=== PATIENT | female | born 1940 | race Caucasian/White ===

== ENCOUNTER 2021-02-13 23:42 | Inpatient (IN) | payer MEDICAID, SELFPAY ==
[~2021-02-13] VITALS: Ht 162.6 cm; Wt 63.5 kg
[2021-02-13 23:43] VITALS: BP 127/84
--- NOTE | 2021-02-13 23:43 | NUR ---
DYLON ALS FROM HOME FOR C/O SOB x1 DAY BUT HAS BEEN EXPERIENCING SX FOR X3 DAYS BUT FEELS THAT IT WORSENED TODAY. O2 SAT 76% RA. HAS BEEN FEELING WEAK AND FATIGUED. PATIENT ORIGINALLY AAOX0 AND RESPONDS TO VERBAL STIMULI AND PAIN. ON SEEN PATIENT WAS 70% AND PATIENT WAS THEN PLACED ON NON-REBREATHER. MEDHX- HTN, DM NKA
--- NOTE | 2021-02-13 23:43 | NUR ---
PT BROUGHT TO BED 10 VIA [facility]
--- NOTE | 2021-02-13 23:59 | NUR ---
PT PRESENTS WITH LABORED BREATHING, TACHYPNEIC, USING ACCESSORY MUSCLES SATING 75% ON 15 LPM NRB. PLACED PT ON V60 ST MODE IPAP12, EPAP 7, BUR 16, 100% FIO2 CURRENT SATS AT 92%. BS REVEAL COARSE THROUGHOUT. WILL CONTINUE TO MONITOR.
[2021-02-14 00:17] LABS: BASOPHILS # (AUTO) 0.1 K/uL (0.00-0.22); BASOPHILS % (AUTO) 1.1 % (0.0-2.0); EOSINOPHILS % (AUTO) 0.1 % (0.0-4.0); HEMATOCRIT 39.3 % (36-48); HEMOGLOBIN 12.9 g/dL (12.0-16.0); LYMPHOCYTES # (AUTO) 0.6 K/uL (2.5-16.5); LYMPHOCYTES % (AUTO) 5.6 % (20.5-51.1); MEAN CORPUSCULAR HEMOGLOBIN 28 pg (27-31); MEAN CORPUSCULAR HGB CONC 33 g/dL (33-37); MEAN CORPUSCULAR VOLUME 86.3 fL (80-94); MONOCYTES # (AUTO) 0.2 K/uL (0.8-1.0); MONOCYTES % (AUTO) 1.8 % (1.7-9.3); NEUTROPHILS # (AUTO) 10.4 K/uL (1.8-7.7); NEUTROPHILS % (AUTO) 91.4 % (42.2-75.2); PLATELET COUNT (AUTO) 304 K/uL (140-450); RED BLOOD CELL COUNT(AUTO) 4.56 MIL/uL (4.20-5.40); RED CELL DISTRIBUTION WIDTH 13.9 % (11.6-13.7); WHITE BLOOD COUNT (AUTO) 11.4 K/uL (4.8-10.8)
--- NOTE | 2021-02-14 00:43 | NUR ---
patient awake and conversing. patient AAOx4. SAMANTHA Barnett made aware
--- NOTE | 2021-02-14 00:48 | NUR ---
patient vocalized that daughter Lita is the person to contact for information
--- NOTE | 2021-02-14 00:49 | NUR ---
called daughter dulce maria for updates and information.
[2021-02-14] MEDS ORDERED: DOXYCYCLINE 100 MG in DEXTROSE 5% 100 ML IV ONE (01:35)
[2021-02-14] MEDS ORDERED: cefTRIAXone 1,000 MG VIAL ONE ×2 (01:42→20:37)
--- NOTE | 2021-02-14 02:09 | NUR ---
0209 - NEVILLE GRANDDAUGHTER REQUESTING UPDATE [phone]
[2021-02-14 02:19] LABS: ANION GAP 20.4 (8-16); ASPARTATE AMINOTRANSFERASE 42 U/L (15-37); CARBON DIOXIDE 20.1 mmol/L (21-32); CHLORIDE 102 mmol/L (98-107); CREATININE 1.6 mg/dL (0.6-1.3); GLUCOSE 371 mg/dL (74-106); POTASSIUM 4.5 mmol/L (3.5-5.1); SODIUM SERUM 138 mmol/L (136-145); TOTAL BILIRUBIN 0.6 mg/dL (0.0-1.0); UREA NITROGEN, BLOOD 51 mg/dL (7-18)
[2021-02-14 02:20] LABS: ALBUMIN 2.9 g/dL (3.4-5.0); LIPASE 157 U/L (73-393)
[2021-02-14] MEDS ORDERED: DOXYCYCLINE 100 MG VIAL IV ONE (02:26)
[2021-02-14] MEDS ORDERED: NACL 0.9% 1,000 ML IV ONE (02:40)
[2021-02-14 04:43] LABS: APPEARANCE,URINE CLEAR (CLEAR); BILIRUBIN,URINE NEGATIVE (NEGATIVE); BLOOD, URINE TRACE-I (NEGATIVE); COLOR,URINE YELLOW (YELLOW); LEUKOCYTE ESTERASE ,URINE TRACE (NEGATIVE); NITRITE, URINE POSITIVE (NEGATIVE); UGLUCOSE NEGATIVE (NEGATIVE)
[2021-02-14] MEDS ORDERED: METF-350 PO (04:43)
[2021-02-14] MEDS ORDERED: DABI75CA PO (04:43)
[2021-02-14] MEDS ORDERED: NOVN SUBQ (04:43)
[2021-02-14] MEDS ORDERED: METO25TA PO (04:43)
[2021-02-14] MEDS ORDERED: LOSA100T1 PO (04:43)
[2021-02-14] MEDS ORDERED: AMLO2.5T PO (04:43)
[2021-02-14] MEDS ORDERED: [UNRECOGNIZED DRUG - OTHER] (04:43)
[2021-02-14 04:51] LABS: RBC,URINE 0-5 /HPF (0-5)
--- NOTE | 2021-02-14 05:50 | NUR ---
IN THE ROOM WITH MACHINE OVERHAULER PHONE SPEAKING TO PATIENT ABOUT END OF LIFE CARE/CODE STATUS. PATIENT REQUESTING TO GO HOME LEAVING AMA PATIENT DOES NOT WANT TO PASS IN HOSPITAL AND REQUESTING TO SPEAK WITH FAMILY MEMBERS. MACHINE OVERHAULER #[id number] LUCY
--- NOTE | 2021-02-14 05:58 | NUR ---
SAMANTHA SINGH SPEAKING TO FAMILY MEMBER FREDDY ABOUT CODE STATUS OF PATIENT.
--- NOTE | 2021-02-14 06:02 | NUR ---
FAMILY ON THE PHONE SPEAKING TO PATIENT ABOUT DECISION MAKING ON END OF LIFE CARE WHETHER PATIENT WILL BE DNR, FULL CODE, & ETC... FAMILY ON THE WAY TO THE HOSPITAL PATIENT WANTS TO LEAVE AMA BUT WILL HAVE PHYSICIAN SPEAK WITH PATIENT BEFORE LEAVING ABOUT RISKS. SAMANTHA RED AWARE.
--- NOTE | 2021-02-14 07:00 | NUR ---
speaking with Lita daughter about code status of patient, family members will be coming in shortly to speak with physician and patient. expressed confusion/misunderstanding about the whole situation.-- SAMANTHA Talbot made aware and jar filler aware.
--- NOTE | 2021-02-14 07:27 | NUR ---
Pt report given to Jerica PEDRAZA. Transfer of care at this time.
--- NOTE | 2021-02-14 07:28 | NUR ---
RECEIVED REPORT FROM MILO HERNANDEZ. TRANSFER OF CARE AT THIS TIME.
--- NOTE | 2021-02-14 08:06 | NUR ---
PT REPOSITIONED IN BED, AWAKE ALERT X4, VSS, WILL CONTINUE TO MONITOR.
[2021-02-14] MEDS ORDERED: DEXTROSE 50% 50 ML SYR IVP PRN (08:30)
[2021-02-14] MEDS ORDERED: DOCUSATE SODIUM 100 MG GELCAP PO PRN (08:35)
[2021-02-14] MEDS ORDERED: ZOLPIDEM 5 MG TAB PO PRN (08:35)
[2021-02-14] MEDS ORDERED: guaiFENesin DM 200/20 MG-10 ML 10 ML UDC PO PRN (08:35)
[2021-02-14] MEDS ORDERED: POTASSIUM CHLORIDE 10 MEQ TABER PO PRN (08:35)
[2021-02-14] MEDS ORDERED: ACETAMINOPHEN 325 MG TAB PO PRN (08:35)
[2021-02-14] MEDS ORDERED: HYDROcodone/APAP 7.5/325 MG 1 TAB PO PRN (08:35)
--- NOTE | 2021-02-14 08:48 | NUR ---
GAVE REPORT TO MILO CAMARENA FOR PENDING ADMIT. ETA 15MINUTES.
--- NOTE | 2021-02-14 09:03 | NUR ---
Patient will be admitted to care of DR. FIGUEROA. Admited to TELE. Will go to room 124B. Belongings list completed. Report to MILO CAMARENA.
[2021-02-14 09:20] LABS: CHOL/HDL RATIO 2.6 (1-4.5); FREE T4 (FREE THYROXINE) 1.65 ng/dL (0.76-1.46); PHOSPHORUS 3.4 mg/dL (2.5-4.9); THYROID STIMULATING HORMONE 0.45 uIU/mL (0.34-3.74)
[2021-02-14 09:21] VITALS: BP 108/75
--- NOTE | 2021-02-14 09:21 | NUR ---
PT WAS BROUGHT IN BY WOO FROM THE ED, ON BIPAP 100% WITH RT AND ED CHARGE NURSE, TADEO, AT BEDSIDE. PT HAS A RIGHT UPPER ARM AND A LEFT ARM ARM IV, LEFT UPPER ARM RUNNING D5NS@60. PT HAS A ROE IN PLACE. PT SKIN INTACT. PT ON FALL PRECAUTIONS. PT VITALS OBTAINED. PT PLACED ON TELE MONITOR. MRSA SWAB OBTAINED. ALL SAFETY MEASURES IN PLACE, CALL LIGHT WITHIN REACH. WILL CONTINUE TO MONITOR.
[2021-02-14] MEDS: DEXT 5% /NACL 0.9% 1,000 ML IV SCH (09:27)
[2021-02-14] MEDS: LOSARTAN 50 MG TAB PO SCH (09:32)
[2021-02-14] MEDS: PANTOPRAZOLE 40 MG TABEC PO SCH (09:33)
[2021-02-14] MEDS: METOPROLOL 25 MG TAB PO SCH ×2 (09:33→20:45)
[2021-02-14] MEDS: ZINC SULF 220 MG CAP PO SCH (09:33)
[2021-02-14] MEDS: ASCORBIC ACID 500 MG TAB PO SCH (09:33)
[2021-02-14] MEDS: AZITHROMYCIN 250 MG TAB PO SCH (09:33)
[2021-02-14] MEDS: amLODIPine 5 MG TAB PO SCH (09:34)
--- NOTE | 2021-02-14 10:04 | NUR ---
PT WAS TRANSFERRED ON BIPAP FROM ED BED 10 TO 123B. NO DISTRESS NOTED DURING TRANSPORT, WILL CONTINUE TO MONITOR.
--- NOTE | 2021-02-14 10:30 | NUR ---
SPOKE WITH FAMILY FOR HISTORY DUE TO PT INABILITY TO SPEAK WITH COVID MASK ON.
[2021-02-14] MEDS ORDERED: remdesivir COMMUNICATION ORDER 1 EA MISC MC PRN (10:45)
[2021-02-14 11:03] LABS: BILIRUBIN,DIRECT 0.2 mg/dL (0.0-0.3); TOTAL BILIRUBIN 0.5 mg/dL (0.0-1.0)
--- NOTE | 2021-02-14 11:08 | NUR ---
BLOOD GLUCOSE 187, ADMINISTERED INSULIN PER SLIDING SCALE.
[2021-02-14 12:00] VITALS: BP 128/81
[2021-02-14] MEDS: BLOOD GLUCOSE MONITORING 1 DEV DEV FS SCH ×3 (12:08→20:53)
[2021-02-14] MEDS: INSULIN LISPRO SLIDING SCALE 100 UNITS/ML VIAL SUBQ PRN ×3 (12:09→20:52)
[2021-02-14] MEDS ORDERED: COMMUNICATION ORDER MC SCH (13:35)
[2021-02-14] MEDS ORDERED: remdesivir CLINICAL MONITORING 1 EA MISC MC PRN (13:40)
--- NOTE | 2021-02-14 14:03 | NUR ---
SPOKE WITH FAMILY REGARDING CODE STATUS AND FAMILY STATING THE PATIENT AND THEM WANT ALL SAVING MEASURES EXCEPT FOR INTUBATION. PT NODDED IN AGREEMENT.
--- NOTE | 2021-02-14 14:19 | NUR ---
POTENTIAL COVID RELATED SKIN FAILURE DUE TO TISSUE LESS TOLERATE TO PRESSURE, SHEARING AND POSSIBLE ASSOCIATED WITH MICROVASCULAR INJURY AND HYPOXIA CONTINUE TO FOLLOW SKIN CARE AND PRESSURE INJURY PREVENTION INTERVENTIONS. -TURN AND REPOSITION PATIENT Q 2H -ASSESS AND MONITOR SKIN CONDITION DURING POSITION CHANGE -OFFLOAD BILATERAL HEELS BY PLACING PILLOWS UNDER CALVES AT ALL TIMES, UNLESS OTHERWISE CONTRAINDICATED -PRESSURE REDISTRIBUTION SURFACE AND OFFLOADING SACRALCOCCYX -KEEP SKIN CLEAN AND DRY AT ALL TIMES.
--- NOTE | 2021-02-14 14:28 | NUR ---
NOTIFIED PULMO REGARDING RT FEELING LIKE THE PATIENT IS TOO UNSTABLE ON THE HIGH FLOW, TO HOLD OFF UNTIL THE PT IS MORE STABLE. THE MD STATED THAT WAS FINE
[2021-02-14] MEDS ORDERED: BARICITINIB PO SCH (14:30)
--- NOTE | 2021-02-14 14:36 | NUR ---
PATIENT HAS BEEN SCREENED AND CATEGORIZED MODERATE NUTRITION RISK. PATIENT WILL BE SEEN WITHIN 3-5 DAYS OF ADMISSION. 02/14/21 02/18/[address]
[2021-02-14 14:56] LABS: ANION GAP 23.8 (8-16); CARBON DIOXIDE 17.8 mmol/L (21-32); CHLORIDE 101 mmol/L (98-107); CREATININE 1.5 mg/dL (0.6-1.3); GLUCOSE 331 mg/dL (74-106); POTASSIUM 4.6 mmol/L (3.5-5.1); SODIUM SERUM 138 mmol/L (136-145); UREA NITROGEN, BLOOD 53 mg/dL (7-18)
[2021-02-14] MEDS ORDERED: REMDESIVIR. 200 MG in NACL 0.9% 100 ML IV SCH (15:00)
[2021-02-14 16:00] VITALS: BP 125/73
--- NOTE | 2021-02-14 16:01 | NUR ---
NOBLE MEDICATION ADMINISTERED PER MD ORDER. PT TOLERATED ADMINISTRATION AND IV IS PATENT. BLOOD GLUCOSE IS 340, INSULIN ADMINISTERED PER SLIDING SCALE.
--- NOTE | 2021-02-14 18:46 | NUR ---
PT STABLE IN BED WITH NO ACUTE S/S OF DISTRESS. ALL NEEDS WERE MET THROUGHOUT THE SHIFT AND WILL BE ENDORSED TO THE INK MAKER NURSE
[2021-02-14 20:00] VITALS: BP 120/83
--- NOTE | 2021-02-14 20:00 | NUR ---
RECEIVED BEDSIDE REPORT FROM DAY RN FOR CONTINUITY OF CARE. PATIENT A/A/OX3, LAYING IN BED ASLEEP. PT NOT IN ANY DISTRESS AND NO COMPLAIN AT THIS TIME. IVF INFUSING ORDERED. VSS, AFEBRILE , SATING 95% ON BIPAP SETTING. SR ON KETTLE HAND, HR-81. FALL PRECAUTION IMPLEMENTED. INSTRUCTED PT NOT TO GET OUT OF BED WITHOUT ASSISTANCE. PT VERBALIZED UNDERSTANDING. CALL LIGHT WITHIN REACH. BED IN LOW AND LOCKED POSITION. BED ALARM ON. WILL CONTINUE POC.
--- NOTE | 2021-02-14 20:10 | NUR ---
PT PRESENTS LAYING IN BED ASLEEP W/ NO SIGNS OF RESPIRATORY DISTRESS SATING 96% ON V60 ST MODE IPAP12, EPAP 7, RR 16, 100% FIO2. BS REVEAL CLEAR APICES COARSE/DIMINISHED BASES. WILL CONTINUE TO MONITOR.
--- NOTE | 2021-02-14 22:00 | NUR ---
ALL DUE MEDS GIVEN AND PT TOLERATED IT WELL. NO ADVERSE DRUG REACTION NOTED AND NO COMPLAIN FROM THE PATIENT. WILL CONTINUE TO OBSERVE.
[2021-02-15] VITALS: BP 121/76
--- NOTE | 2021-02-15 | NUR ---
PATIENT VITAL SIGNS STABLE, AFEBRILE, SATING 96% ON BIPAP SETTING. NOT IN ANY DISTRESS AND NO COMPLAIN AT THIS TIME. WILL CONTINUE OBSERVATION.
[2021-02-15] MEDS: DEXT 5% /NACL 0.9% 1,000 ML IV SCH ×2 (00:30→17:32)
--- NOTE | 2021-02-15 02:00 | NUR ---
PT ASLEEP AT THIS TIME. VISIBLE CHEST RISE AND FALL NOTED. NOT IN ANY DISTRESS. WILL CONTINUE OBSERVATION.
--- NOTE | 2021-02-15 02:32 | NUR ---
PT PRESENTS LAYING IN BED AWAKE W/ NO SIGNS OF RESPIRATORY DISTRESS SATING 97%. ASSISTED PT WITH REPOSITIONING. V60 PLUGGED INTO RED OUTLET, HOB IS ELEVATED, SKIN INTACT, TOLERATING NIPPV WELL, ,
[2021-02-15 04:00] VITALS: BP 120/68
--- NOTE | 2021-02-15 04:00 | NUR ---
PATIENT VITAL SIGNS STABLE, AFEBRILE, SATING 95% ON BIPAP , FIO2 100%. NOT IN ANY DISTRESS AND NO COMPLAIN AT THIS TIME. CALL LIGHT WITHIN REACH. WILL CONTINUE OBSERVATION.
--- NOTE | 2021-02-15 04:41 | NUR ---
PT PRESENTS LAYING IN BED AWAKE W/ NO SIGNS OF RESPIRATORY DISTRESS SATING 95%. ASSISTED PT WITH DRINKING WATER. V60 PLUGGED INTO RED OUTLET, HOB IS ELEVATED, SKIN INTACT, TOLERATING NIPPV WELL.
[2021-02-15] MEDS: INSULIN LISPRO SLIDING SCALE 100 UNITS/ML VIAL SUBQ PRN ×4 (05:57→20:39)
[2021-02-15] MEDS: BLOOD GLUCOSE MONITORING 1 DEV DEV FS SCH ×4 (05:59→20:48)
--- NOTE | 2021-02-15 06:14 | NUR ---
GOT A CALL FROM RADIOLOGY DEPARTMENT AND WANTED TO SEE IF PATIENT CAN GO TO CT SCAN FOR CHEST CT. STAFF MADE AWARE THAT THE PT IS NOT STABLE TO BE OFF BIPAP AT THIS TIME.
--- NOTE | 2021-02-15 06:16 | NUR ---
NO ACUTE EVENT THROUGHOUT THE NIGHT. PATIENT STABLE AND NOT IN ANY DISTRESS. NO COMPLAIN AT THIS TIME. ALL NEEDS ATTENDED. CALL LIGHT WITHIN REACH.WILL ENDORSE THE PATIENT TO THE ONCOMING RN FOR CONTINUITY OF CARE.
[2021-02-15 06:31] LABS: HEMATOCRIT 35.6 % (36-48); HEMOGLOBIN 11.7 g/dL (12.0-16.0); LYMPHOCYTES # (AUTO) 0.9 K/uL (2.5-16.5); LYMPHOCYTES % (AUTO) 12.9 % (20.5-51.1); MEAN CORPUSCULAR HEMOGLOBIN 29 pg (27-31); MEAN CORPUSCULAR HGB CONC 33 g/dL (33-37); MEAN CORPUSCULAR VOLUME 86.9 fL (80-94); MONOCYTES # (AUTO) 0.6 K/uL (0.8-1.0); MONOCYTES % (AUTO) 8.4 % (1.7-9.3); NEUTROPHILS # (AUTO) 5.4 K/uL (1.8-7.7); NEUTROPHILS % (AUTO) 78.7 % (42.2-75.2); PLATELET COUNT (AUTO) 315 K/uL (140-450); RED CELL DISTRIBUTION WIDTH 13.7 % (11.6-13.7); WHITE BLOOD COUNT (AUTO) 6.9 K/uL (4.8-10.8)
[2021-02-15 06:59] LABS: ANION GAP 15.5 (8-16); CARBON DIOXIDE 24.6 mmol/L (21-32); CHLORIDE 111 mmol/L (98-107); CREATININE 1.2 mg/dL (0.6-1.3); GLUCOSE 328 mg/dL (74-106); POTASSIUM 4.1 mmol/L (3.5-5.1); SODIUM SERUM 147 mmol/L (136-145); UREA NITROGEN, BLOOD 48 mg/dL (7-18)
[2021-02-15 07:00] LABS: ALBUMIN 2.3 g/dL (3.4-5.0); BILIRUBIN,DIRECT 0.1 mg/dL (0.0-0.3); TOTAL BILIRUBIN 0.2 mg/dL (0.0-1.0)
--- NOTE | 2021-02-15 07:32 | NUR ---
RECEIVED BEDSIDE REPORT FROM HYBRID TESTER RN FOR CONTINUITY OF CARE. PATIENT A/A/OX3, LAYING IN BED ASLEEP. PT NOT IN ANY DISTRESS AND NO COMPLAIN AT THIS TIME. IVF INFUSING ORDERED. VSS, AFEBRILE , SATING 95% ON BIPAP SETTINGS. FALL PRECAUTION IMPLEMENTED. PLAN OF CARE DISCUSSED. SAFETY PRECAUTIONS IN PLACE. PT VERBALIZED UNDERSTANDING. CALL LIGHT WITHIN REACH. BED IN LOW AND LOCKED POSITION. BED ALARM ON. WILL CONTINUE POC.
[2021-02-15 08:00] VITALS: BP 135/69
[2021-02-15] MEDS: COMMUNICATION ORDER MC SCH ×2 (09:00)
[2021-02-15] MEDS ORDERED: RENAL DOSING PER PHARMACY MC PRN (09:05)
[2021-02-15] MEDS: ZINC SULF 220 MG CAP PO SCH (09:55)
[2021-02-15] MEDS: PANTOPRAZOLE 40 MG TABEC PO SCH (09:55)
[2021-02-15] MEDS: amLODIPine 5 MG TAB PO SCH (09:57)
[2021-02-15] MEDS: LOSARTAN 50 MG TAB PO SCH (09:57)
[2021-02-15] MEDS: ASCORBIC ACID 500 MG TAB PO SCH (09:57)
[2021-02-15] MEDS: AZITHROMYCIN 250 MG TAB PO SCH (09:58)
[2021-02-15] MEDS: METOPROLOL 25 MG TAB PO SCH ×2 (09:58→20:32)
[2021-02-15] MEDS: metFORMIN 850 MG TAB PO SCH ×2 (10:01→16:09)
--- NOTE | 2021-02-15 10:02 | NUR ---
ALL SCHEDULED MEDS GIVEN. PT IS STABLE. NO DISTRESS NOTED. WILL CONTINUE TO MONITOR
[2021-02-15 12:00] VITALS: BP 129/75
[2021-02-15] MEDS: REMDESIVIR. 100 MG in NACL 0.9% 100 ML IV SCH (12:22)
--- NOTE | 2021-02-15 12:30 | NUR ---
BLOOD SUGAR CHECK WAS 282. ADMINISTERED 6 UNITS OF INSULIN SQ PER MD ORDERED.
--- NOTE | 2021-02-15 13:20 | NUR ---
DC PLANNING: PATIENT PRESENTED WITH C/O SOB, BIBA. PLACED ON NRB AT 15 L IN ER, RECEIVED 2 DOSES OF PIZER VACCINE IN [place]. COVID RAPID POSITIVE, H/O DM, HTN AND DYSLIPIDEMIA. RR 40/50/MIN IN ER, GIVEN ROCEPHIN AND VIBRAMYCIN. CXR SHOWS EXTENSIVE BILATERAL INFILTRATES, LACTIC ACID 2.2, LOW BICARB, MERLY. PULMONOLOGY AND ID CONSULTS ORDERED, STARTED ON REMDESIVIR, ROCEPHIN AND ZITHROMAX, DECADRON PO. CURRENTLY ON BIPAP AT 100%. KUMAR SPOKE WITH THE PATIENTS DAUGHTER FREDDY BY PHONE. THE PATIENT LIVES IN [facility] AND IS VISITING. SHE LIVES WITH 3 OTHER FAMILY MEMBERS IN [place], HERE STAYS WITH HER DAUGHTER, SON IN LAW AND 3 GRANDCHILDREN. RESIDENCE IS A SINGLE STORY HOUSE, PRIOR TO BEING ILL PATIENT WAS ABLE TO AMBULATE WITHOUT DEVICES BUT HAS A FWW AT HER RESIDENCE IN [place]. CM DISCUSSED POTENTIAL NEED FOR HOME O2, ENDORSED THAT AT THIS TIME IT'S UNCLEAR IF HER PRESUMPTIVE M/MICHELL WILL COVER THIS BUT CM WILL LET THE FAMILY KNOW IF THERE ANY ISSUES WITH COVERAGE. KMUAR WILL FOLLOW FOR NEEDS. Addendum: 02/23/21 at 1113 by Mary Walker CM DC PLANNING: KUMAR SPOKE WITH THE FAMILY BY PHONE, REVIEWED THE PATIENTS CURRENT MEDICATIONS AND THE FACT THAT THE PATIENT IS ON 9L NC AND CAN'T DC HOME AT THIS LEVEL. PATIENT IS POSITIVE FOR PNA ON CXR AND ESBL IN THE URINE CULTURES. DC PLAN REMAINS TO DC HOME WITH HOME O2 WHEN CLINICALLY STABLE. Addendum: 02/27/21 at 1437 by Mary Walker DC PLANNING: THE PATIENT REMAINS ON 7-8 L PER NC OF O2, REMAINS ON SOLUMEDROL, ALBUTERAL HHN'S. P.T. EVAL DONE TODAY, PATIENT DESATTING TO 83% ON 7L DURING ACTIVITY, INCREASED TO 10L DURING SESSION. UNABLE TO AMBULATE TODAY, BED MOBILITY AND TRANSFERS DONE. ANTICIPATE PATIENT WILL NEED HOME O2, CM WILL FOLLOW FOR NEEDS. Addendum: 02/28/21 at 1210 by Mary Walker DC PLANNING: PATIENT ON 10 L, SATTING AT 92%. CXR SHOWS WORSENING PNA, PATIENT STARTED ON MEREM IV. CM SPOKE WITH THE PATIENTS SERGE WOOTEN WHO WAS ASKING QUESTIONS ON BEHALF OF THE PATIENTS DAUGHTER FREDDY, UPDATED ON CURRENT STATUS. CM WILL FOLLOW FOR NEEDS. Addendum: 03/09/21 at 1418 by Mary Walker CM DC PLANNING: CLINICAL UPDATE GIVEN TO ELIECER WOOTEN. CM WILL FOLLOW. Addendum: 03/12/21 at 1802 by Fatou Estrada CM DC planning: Oxygen order faxed to [facility] ([phone] [phone]) received paperwork back that will need to be signed by physician tomorrow. CONFIGURATION CONSULTANT spoke with eddie Wooten's serge and provided update. Pt's family is willing to pay out of pocket for oxygen if needed. Addendum: 03/13/21 at 1419 by Mary Walker CM DC PLANNING: CM FAXED UPDATED CLINICAL PACKET WITH SIGNED FORM AND SATS ON RA. WAITING FOR [facility] TO SCHEDULE DELIVERY, CM WILL FOLLOW.
--- NOTE | 2021-02-15 14:45 | NUR ---
CHECKED ON PATIENT. PT IS STABLE. NO DISTRESS NOTED. WILL CONTINUE TO MONITOR.
[2021-02-15 16:00] VITALS: BP 136/74
[2021-02-15] MEDS: BARICITINIB 2 MG PO SCH (16:00)
[2021-02-15] MEDS: ONDANSETRON 4 MG/2 ML VIAL IM/IVP PRN (17:32)
--- NOTE | 2021-02-15 17:32 | NUR ---
PATIENT COMPLAINED OF N/V. ADMINISTERED ZOFRAN IVP PER MD ORDERED.
--- NOTE | 2021-02-15 19:40 | NUR ---
ENDORSED TO SELF PAY COLLECTOR NURSE FOR CONTINUITY OF CARE. PT IS STABLE
[2021-02-15 20:00] VITALS: BP 134/71
--- NOTE | 2021-02-15 20:00 | NUR ---
RECEIVED BEDSIDE REPORT FROM DAY RN FOR CONTINUITY OF CARE. PATIENT A/A/OX3, SITTING UP IN BED WATCHING TV. PT NOT IN ANY DISTRESS AND NO COMPLAIN AT THIS TIME. IVF INFUSING ORDERED. VSS, AFEBRILE , SATING 99% ON BIPAP SETTING, FIO2- 100%. SR ON SAFETY INTERN, HR-89. ISOLATION AND FALL PRECAUTION IMPLEMENTED. INSTRUCTED PT NOT TO GET OUT OF BED WITHOUT ASSISTANCE. PT VERBALIZED UNDERSTANDING. CALL LIGHT WITHIN REACH. BED IN LOW AND LOCKED POSITION. BED ALARM ON. WILL CONTINUE POC AND MONITORING.
--- NOTE | 2021-02-15 21:30 | NUR ---
PATIENT FAMILY CALLED CHRISTOPHER WREN GRANDSON. UPDATED THEM WITH THE PATIENT CONDITION.
--- NOTE | 2021-02-15 22:00 | NUR ---
ALL DUE MEDS GIVEN AND PT TOLERATED IT WELL. NO ADVERSE DRUG REACTION NOTED . WILL CONTINUE TO OBSERVE.
[2021-02-16] VITALS: BP 130/74
--- NOTE | 2021-02-16 | NUR ---
PATIENT GRAND DAUGHTER CALLED AND UPDATED HER WITH THE PATIENT CONDITION. PATIENT VITAL SIGNS STABLE, AFEBRILE, SATING 96% ON BIPAP W/ FIO2 75%. SR ON FLOORWORKER LASTING, HR-77. PT NOT IN ANY DISTRESS AND NO COMPLAIN AT THIS TIME. CALL LIGHT WITHIN REACH. WILL CONTINUE POC AND MONITORING.
--- NOTE | 2021-02-16 02:00 | NUR ---
PATIENT ASLEEP AT THIS TIME. VISIBLE CHEST RISE AND FALL NOTED. NOT IN ANY DISTRESS AND NO COMPLAIN AT THIS TIME. SAFETY MEASURES IN PLACED.
[2021-02-16 04:00] VITALS: BP 155/80
--- NOTE | 2021-02-16 04:00 | NUR ---
PATIENT VITAL SIGNS STABLE, AFEBRILE, SATING 96% ON BIPAP SETTING WITH FIO2-75%. SR ON AUTOMOTIVE PORTER, HR-87. PT NOT IN ANY DISTRESS AND NO COMPLAIN AT THIS TIME. CALL LIGHT WITHIN REACH. WILL CONTINUE OBSERVATION.
[2021-02-16] MEDS: INSULIN LISPRO SLIDING SCALE 100 UNITS/ML VIAL SUBQ PRN ×4 (05:45→22:46)
[2021-02-16] MEDS: BLOOD GLUCOSE MONITORING 1 DEV DEV FS SCH ×4 (05:46→21:00)
[2021-02-16 06:12] LABS: BASOPHILS % (AUTO) 0.2 % (0.0-2.0); EOSINOPHILS # (AUTO) 0.2 K/uL (0-0.4); HEMATOCRIT 37.6 % (36-48); HEMOGLOBIN 12.4 g/dL (12.0-16.0); LYMPHOCYTES # (AUTO) 1.4 K/uL (2.5-16.5); LYMPHOCYTES % (AUTO) 18.5 % (20.5-51.1); MEAN CORPUSCULAR HEMOGLOBIN 29 pg (27-31); MEAN CORPUSCULAR HGB CONC 33 g/dL (33-37); MEAN CORPUSCULAR VOLUME 87.9 fL (80-94); MONOCYTES # (AUTO) 0.7 K/uL (0.8-1.0); NEUTROPHILS # (AUTO) 5.3 K/uL (1.8-7.7); NEUTROPHILS % (AUTO) 70.3 % (42.2-75.2); PLATELET COUNT (AUTO) 423 K/uL (140-450); RED BLOOD CELL COUNT(AUTO) 4.28 MIL/uL (4.20-5.40); RED CELL DISTRIBUTION WIDTH 14.2 % (11.6-13.7); WHITE BLOOD COUNT (AUTO) 7.6 K/uL (4.8-10.8)
[2021-02-16 06:32] LABS: ALBUMIN 2.5 g/dL (3.4-5.0); ANION GAP 15.9 (8-16); BILIRUBIN,DIRECT 0.1 mg/dL (0.0-0.3); CARBON DIOXIDE 23.2 mmol/L (21-32); CHLORIDE 117 mmol/L (98-107); GLUCOSE 279 mg/dL (74-106); POTASSIUM 4.1 mmol/L (3.5-5.1); SODIUM SERUM 152 mmol/L (136-145); TOTAL BILIRUBIN 0.3 mg/dL (0.0-1.0); UREA NITROGEN, BLOOD 41 mg/dL (7-18)
--- NOTE | 2021-02-16 07:25 | NUR ---
RECEIVED BEDSIDE REPORT FROM GARMENT SORTER NURSE FOR CONTINUITY OF CARE. PT IS AWAKE AND ALERT. A&OX4. ON BIPAP AT 75% FIO2. O2 SAT IS 95%. BREATHING IS UNLABORED. SKIN IS WARM, DRY, AND INTACT. ROE CATH IN PLACE DRAINING CLEAR, YELLOW URINE. IV IS IN THE LEFT UA20 G AND RIGHT UA 18G. PT IS STABLE. FAMILY AT WINDOW.
[2021-02-16] MEDS: ONDANSETRON 4 MG/2 ML VIAL IM/IVP PRN (07:52)
--- NOTE | 2021-02-16 07:53 | NUR ---
PT STATES SHE IS NAUSEOUS AND WAS GIVEN ZOFRAN ORDERED PRN. REASSESSED NAUSEA 5 MIN LATER AND PT DENIES NAUSEA. FAMILY AT BEDSIDE. PT WAS REPOSITIONED. BIPAP IS IN PLACE WITH O2 SAT 95%. PT IS STABLE.
[2021-02-16 08:00] VITALS: BP 162/91
[2021-02-16] MEDS: COMMUNICATION ORDER MC SCH ×2 (09:00)
[2021-02-16] MEDS: metFORMIN 850 MG TAB PO SCH ×2 (09:04→17:57)
[2021-02-16] MEDS: ASCORBIC ACID 500 MG TAB PO SCH (09:04)
[2021-02-16] MEDS: METOPROLOL 25 MG TAB PO SCH ×2 (09:04→21:58)
[2021-02-16] MEDS: ZINC SULF 220 MG CAP PO SCH (09:04)
[2021-02-16] MEDS: AZITHROMYCIN 250 MG TAB PO SCH (09:05)
[2021-02-16] MEDS: amLODIPine 5 MG TAB PO SCH (09:05)
[2021-02-16] MEDS: LOSARTAN 50 MG TAB PO SCH (09:05)
[2021-02-16] MEDS: PANTOPRAZOLE 40 MG TABEC PO SCH (09:05)
[2021-02-16] MEDS: DEXT 5% /NACL 0.9% 1,000 ML IV SCH (09:06)
--- NOTE | 2021-02-16 09:30 | NUR ---
ROUNDED ON PT. O2 SAT IS 98% ON BIPAP. PT APPEARS CALM AND STABLE. NO DISTRESS NOTED. ENCOURAGED TO DRINK ENSURE SINCE PT DOES NOT HAVE APPETITE. PT DRANK 25% OF ENSURE. WILL CONTINUE TO MONITOR.
--- NOTE | 2021-02-16 11:00 | NUR ---
PT WAS CHANGED AND REPOSITIONED. ROE WAS LEAKING. WATER REMOVED FROM BALLOON IN ROE AND ROE WAS INSERTED FURTHER. WATER WAS REPLACED IN BALLOON. BACKFLOW OF URINE NOTED. PT DENIES PAIN. NO RESPIRATORY DISTRESS NOTED ON BIPAP.
[2021-02-16 12:00] VITALS: BP 158/81
[2021-02-16] MEDS: REMDESIVIR. 100 MG in NACL 0.9% 100 ML IV SCH (12:04)
--- NOTE | 2021-02-16 12:11 | NUR ---
BS READING IS 215. 4 UNITS OF HUMALOG INSULIN GIVEN PER SLIDING SCALE. WILL MONITOR BS.
--- NOTE | 2021-02-16 13:00 | NUR ---
ROUNDED ON PT. PT WAS GIVEN SHAKE AND WATER REQUESTED. WITHOUT BIPAP O2 DROPPED TO 88%. BIPAP PLACED BACK ON PT AND O2 SAT RETURNED TO 97%. BREATHING IS UNLABORED. NO DISTRESS NOTED. PT STATES SHE IS NOT HUNGRY AND DOES NOT WANT TO EAT LUNCH.
--- NOTE | 2021-02-16 15:00 | NUR ---
ROUNDED ON PT. BREATHING IS UNLABORED ON BIPAP. BIPAP IS AT 65% FIO2. O2 SAT IS 98%. NO DISTRESS NOTED. PT WAS GIVEN GLUCERNA SHAKE AND WATER REQUESTED. DENIES NAUSEA. WILL CONTINUE TO MONITOR.
[2021-02-16] MEDS: BARICITINIB 2 MG PO SCH (15:02)
--- NOTE | 2021-02-16 15:27 | NUR ---
RECEIVED A CALL FROM ADULT EDUCATION PROFESSIONAL INQUIRING ABOUT CT CHEST. ASKED RT, ASHA, AND HE DID NOT FEEL PT WAS STABLE TO TRANSFER ON BIPAP. PT ALSO HAS DIFFICULTY LAYING SUPINE DUE TO LABORED BREATHING. INFORMED ADULT EDUCATION PROFESSIONAL WE WILL NOT BE ABLE TO OBTAIN CT CHEST ON THIS SHIFT. WILL WAIT FOR PT TO BE MORE STABLE FOR TRANSFER.
[2021-02-16 16:00] VITALS: BP 152/72
--- NOTE | 2021-02-16 18:07 | NUR ---
PT WAS GIVEN 6 UNITS HUMALOG INSULIN PER SLIDING SCALE. BS READING WAS 279.
--- NOTE | 2021-02-16 19:18 | NUR ---
ENDORSED PT TO EDUCATION PROFESSIONAL NURSE FOR CONTINUITY OF CARE. PT IS STABLE. PLAN OF CARE DISCUSSED.
[2021-02-16 20:00] VITALS: BP 158/72
[2021-02-16] MEDS ORDERED: MEROPENEM 1,000 MG VIAL IV ONE (21:45)
[2021-02-16] MEDS: MEROPENEM 1,000 MG in NACL 0.9% 100 ML IV SCH (21:57)
[2021-02-17] VITALS: BP 157/82
--- NOTE | 2021-02-17 00:45 | NUR ---
ROUNDED PATIENT, PT IS AWAKE. NEEDS ATTENDED TO. NO SOB NOTED.
[2021-02-17] MEDS: DEXT 5% /NACL 0.9% 1,000 ML IV SCH ×2 (03:15→19:55)
[2021-02-17 04:00] VITALS: BP 158/90
[2021-02-17] MEDS: MEROPENEM 1,000 MG in NACL 0.9% 100 ML IV SCH ×3 (05:00→21:28)
[2021-02-17] MEDS ORDERED: MEROPENEM 1,000 MG VIAL IV ONE (05:59)
[2021-02-17] MEDS: INSULIN LISPRO SLIDING SCALE 100 UNITS/ML VIAL SUBQ PRN ×4 (07:02→21:14)
[2021-02-17] MEDS: BLOOD GLUCOSE MONITORING 1 DEV DEV FS SCH ×4 (07:03→21:11)
[2021-02-17 08:00] VITALS: BP 169/75
[2021-02-17] MEDS: metFORMIN 850 MG TAB PO SCH ×2 (08:00→17:54)
[2021-02-17] MEDS: COMMUNICATION ORDER MC SCH (09:00)
[2021-02-17] MEDS: LOSARTAN 50 MG TAB PO SCH (09:25)
[2021-02-17] MEDS: AZITHROMYCIN 250 MG TAB PO SCH (09:26)
[2021-02-17] MEDS: METOPROLOL 25 MG TAB PO SCH ×2 (09:26→21:27)
[2021-02-17] MEDS: ASCORBIC ACID 500 MG TAB PO SCH (09:26)
[2021-02-17] MEDS: PANTOPRAZOLE 40 MG TABEC PO SCH (09:26)
[2021-02-17] MEDS: ZINC SULF 220 MG CAP PO SCH (09:26)
[2021-02-17] MEDS: amLODIPine 5 MG TAB PO SCH (09:26)
[2021-02-17 12:00] VITALS: BP 178/82
[2021-02-17] MEDS: REMDESIVIR. 100 MG in NACL 0.9% 100 ML IV SCH (13:00)
[2021-02-17] MEDS ORDERED: hydrALAZINE 20 MG/ML VIAL IVP SCH (13:30)
[2021-02-17 13:48] LABS: BASOPHILS % (AUTO) 0.1 % (0.0-2.0); EOSINOPHILS % (AUTO) 0.1 % (0.0-4.0); HEMATOCRIT 38.4 % (36-48); HEMOGLOBIN 12.5 g/dL (12.0-16.0); LYMPHOCYTES # (AUTO) 0.8 K/uL (2.5-16.5); LYMPHOCYTES % (AUTO) 6.5 % (20.5-51.1); MEAN CORPUSCULAR HEMOGLOBIN 28 pg (27-31); MEAN CORPUSCULAR HGB CONC 33 g/dL (33-37); MEAN CORPUSCULAR VOLUME 87.4 fL (80-94); MONOCYTES # (AUTO) 0.6 K/uL (0.8-1.0); MONOCYTES % (AUTO) 5.1 % (1.7-9.3); NEUTROPHILS # (AUTO) 10.9 K/uL (1.8-7.7); NEUTROPHILS % (AUTO) 88.2 % (42.2-75.2); PLATELET COUNT (AUTO) 424 K/uL (140-450); RED BLOOD CELL COUNT(AUTO) 4.39 MIL/uL (4.20-5.40); RED CELL DISTRIBUTION WIDTH 14.5 % (11.6-13.7); WHITE BLOOD COUNT (AUTO) 12.3 K/uL (4.8-10.8)
[2021-02-17 13:56] LABS: ANION GAP 17.2 (8-16); CARBON DIOXIDE 23.6 mmol/L (21-32); CHLORIDE 125 mmol/L (98-107); CREATININE 1.1 mg/dL (0.6-1.3); GLUCOSE 262 mg/dL (74-106); POTASSIUM 3.8 mmol/L (3.5-5.1); UREA NITROGEN, BLOOD 31 mg/dL (7-18)
[2021-02-17 14:02] LABS: SODIUM SERUM 162 mmol/L (136-145)
[2021-02-17 14:03] LABS: TOTAL BILIRUBIN 0.4 mg/dL (0.0-1.0)
[2021-02-17 14:04] LABS: ALBUMIN 2.5 g/dL (3.4-5.0); BILIRUBIN,DIRECT 0.1 mg/dL (0.0-0.3)
[2021-02-17] MEDS: BARICITINIB 2 MG PO SCH (15:44)
[2021-02-17 16:00] VITALS: BP 138/77
[2021-02-17] MEDS ORDERED: CRUSHER, PILL MC ONE (17:52)
--- NOTE | 2021-02-17 19:35 | NUR ---
ENDORSED TO PARTS ORDER AND STOCK CLERK NURSE FOR CONTINUITY OF CARE.
--- NOTE | 2021-02-17 19:36 | NUR ---
RECEIVED REPORT FROM AM NURSE. PATIENT AWAKE, ALERT ORIENTED X4. ON BIPAP, ON HIGH FOWLERS POSITION. NO S/S OF RESPIRATORY DISTRESS. BREATHING REGULAR UNLABORED. IVF NS RUNNING AT 60 [address] ROE CATHETER IN PLACE DRAINING CLEAR YELLOW URINE. SAFETY MEASURES IN PLACE. CALL LIGHT WITHIN REACH. WILL CONTINUE TO MONITOR.
[2021-02-17 20:00] VITALS: BP 158/91
--- NOTE | 2021-02-17 21:14 | NUR ---
BLOOD SUGAR CHECKED WAS 321. ADMINISTERED HUMALOG ORDERED PER SLIDING SCALE.
[2021-02-17 21:15] LABS: ALBUMIN 2.6 g/dL (3.4-5.0); BILIRUBIN,DIRECT 0.1 mg/dL (0.0-0.3); TOTAL BILIRUBIN 0.4 mg/dL (0.0-1.0)
--- NOTE | 2021-02-17 21:27 | NUR ---
ADMINISTERED ALL 2100 SCHEDULED MEDS. TOLERATED WELL.
[2021-02-18] VITALS (9 sets, daily range): BP systolic 106–158; BP diastolic 75–95
--- NOTE | 2021-02-18 03:10 | NUR ---
PATIENT SLEEPING WITH BIPAP ON. NO SOB NOTED. CALL LIGHT WITHIN REACH.
[2021-02-18] MEDS: MEROPENEM 1,000 MG in NACL 0.9% 100 ML IV SCH ×3 (05:22→22:51)
[2021-02-18] MEDS: BLOOD GLUCOSE MONITORING 1 DEV DEV FS SCH ×5 (06:46→21:30)
[2021-02-18] MEDS: INSULIN LISPRO SLIDING SCALE 100 UNITS/ML VIAL SUBQ PRN ×4 (06:46→23:28)
--- NOTE | 2021-02-18 06:46 | NUR ---
PATIENT BLOOD SUGAR 202 HUMALOG INSULIN ADMINISTERED ORDERED PER SLIDING SCALE.
--- NOTE | 2021-02-18 07:20 | NUR ---
ENDORSEMENT GIVEN TO AM NURSE FOR CONTINUITY OF CARE. PATIENT IS STABLE.
[2021-02-18] MEDS: metFORMIN 850 MG TAB PO SCH ×2 (08:00→16:34)
[2021-02-18 08:38] LABS: BASOPHILS % (AUTO) 0.3 % (0.0-2.0); HEMOGLOBIN 13.2 g/dL (12.0-16.0); LYMPHOCYTES % (AUTO) 13.6 % (20.5-51.1); MEAN CORPUSCULAR HGB CONC 32 g/dL (33-37); MEAN CORPUSCULAR VOLUME 88.6 fL (80-94); MONOCYTES % (AUTO) 8.3 % (1.7-9.3); NEUTROPHILS # (AUTO) 9.1 K/uL (1.8-7.7); NEUTROPHILS % (AUTO) 77.8 % (42.2-75.2); PLATELET COUNT (AUTO) 374 K/uL (140-450); RED BLOOD CELL COUNT(AUTO) 4.63 MIL/uL (4.20-5.40); RED CELL DISTRIBUTION WIDTH 14.5 % (11.6-13.7); WHITE BLOOD COUNT (AUTO) 11.6 K/uL (4.8-10.8)
[2021-02-18 08:39] LABS: LYMPHOCYTES # (AUTO) 1.6 K/uL (2.5-16.5)
[2021-02-18 08:41] LABS: MEAN CORPUSCULAR HEMOGLOBIN 29 pg (27-31)
[2021-02-18] MEDS: ZINC SULF 220 MG CAP PO SCH (09:00)
[2021-02-18] MEDS: PANTOPRAZOLE 40 MG TABEC PO SCH (09:00)
[2021-02-18] MEDS: ASCORBIC ACID 500 MG TAB PO SCH (09:00)
[2021-02-18] MEDS: METOPROLOL 25 MG TAB PO SCH ×2 (09:00→22:53)
[2021-02-18] MEDS: AZITHROMYCIN 250 MG TAB PO SCH (09:00)
[2021-02-18] MEDS: LOSARTAN 50 MG TAB PO SCH (09:00)
[2021-02-18] MEDS: amLODIPine 5 MG TAB PO SCH (09:00)
[2021-02-18 12:17] LABS: ALBUMIN 2.6 g/dL (3.4-5.0); BILIRUBIN,DIRECT 0.1 mg/dL (0.0-0.3); TOTAL BILIRUBIN 0.5 mg/dL (0.0-1.0)
[2021-02-18 12:28] LABS: CHLORIDE 128 mmol/L (98-107); POTASSIUM 3.6 mmol/L (3.5-5.1)
[2021-02-18 12:29] LABS: CARBON DIOXIDE 25.9 mmol/L (21-32); CREATININE 1.1 mg/dL (0.6-1.3); GLUCOSE 164 mg/dL (74-106); UREA NITROGEN, BLOOD 32 mg/dL (7-18)
[2021-02-18 12:30] LABS: ANION GAP 14.7 (8-16); SODIUM SERUM 165 mmol/L (136-145)
[2021-02-18] MEDS: DEXT 5% /NACL 0.9% 1,000 ML IV SCH (12:35)
[2021-02-18] MEDS: REMDESIVIR. 100 MG in NACL 0.9% 100 ML IV SCH (13:00)
[2021-02-18] MEDS ORDERED: DEXT 5% / NACL 0.45% 1,000 ML IV SCH (14:40)
[2021-02-18] MEDS: BARICITINIB 2 MG PO SCH (15:00)
--- NOTE | 2021-02-18 16:27 | NUR ---
02/18/21 RD INITIAL ASSESSMENT COMPLETED PLEASE REFER TO NUTRITION ASSESSMENT UNDER CARE ACTIVITY FOR ESTIMATED NUTRITIONAL NEEDS. RD RECOMMENDATIONS: 1. RECOMMEND SWALLOW EVALUATION FOR APPROPRIATE DIET TEXTURE/CONSISTENCY. 2. CONTINUE [facility] 60 GM DIET WITH TEXTURE MODIFICATIONS PER MD/WELDING MACHINE FEEDER. 3. GLUCERNA TID WILL BE ADDED PER RD PROTOCOL. 4. RD WILL F/U 2-3 DAYS; HIGH RISK RHINA CAAL, RD
--- NOTE | 2021-02-18 19:44 | NUR ---
ENDORSED TO MARKETING AGENT NURSE FOR CONTINUITY OF CARE.
--- NOTE | 2021-02-18 19:45 | NUR ---
RECEIVED ENDORSEMENT FROM AM NURSE. PATIENT AWAKE ALERT WELL RESTED IN HIGH FOWLERS POSITION WITH BIPAP ON. NO ACUTE DISTRESS NOTED. BREATHING REGULAR UNLABORED. IVF D51/2 NS RUNNING AT 50 MLS. SAFETY PRECAUTIONS IN PLACE. CALL LIGHT WITHIN REACH. NO COMPLAINTS OF PAIN. WILL CONTINUE TO MONITOR.
--- NOTE | 2021-02-18 20:30 | NUR ---
TOOK PT OFF BIPAP AND PLACED ON 5L N/C. PT TOLERATING WELL. RESPIRATIONS EVEN AND UNLABORED. SPO2 RANGING FROM 92-97%. BIPAP AND STANDBY. WILL CONT TO MONITOR.
[2021-02-19] VITALS: BP 148/67
[2021-02-19 04:00] VITALS: BP 161/82
--- NOTE | 2021-02-19 04:00 | NUR ---
PATIENT SLEEPING IN NO ACUTE DISTRESS NOTED. RESPIRATION EVEN UNLABORED. FAMILY MEMBER OUTSIDE BY THE WINDOW WATCHING THE PT. SAFETY MEASURES IN PLACE. CALL LIGHT WITHIN REACH.
[2021-02-19] MEDS: MEROPENEM 1,000 MG in NACL 0.9% 100 ML IV SCH ×2 (05:55→13:09)
--- NOTE | 2021-02-19 05:55 | NUR ---
ADMINISTERED MERREM ORDERED BY .
--- NOTE | 2021-02-19 06:15 | NUR ---
PATIENT IS KEPT CLEAN, DRY AND COMFORTABLE. ALL NEEDS MET.
[2021-02-19 06:47] LABS: HEMATOCRIT 40.6 % (36-48); HEMOGLOBIN 12.9 g/dL (12.0-16.0); LYMPHOCYTES # (AUTO) 1.1 K/uL (2.5-16.5); LYMPHOCYTES % (AUTO) 12.1 % (20.5-51.1); MEAN CORPUSCULAR HEMOGLOBIN 28 pg (27-31); MEAN CORPUSCULAR HGB CONC 32 g/dL (33-37); MEAN CORPUSCULAR VOLUME 88.6 fL (80-94); MONOCYTES # (AUTO) 0.7 K/uL (0.8-1.0); MONOCYTES % (AUTO) 8.3 % (1.7-9.3); NEUTROPHILS # (AUTO) 7.1 K/uL (1.8-7.7); NEUTROPHILS % (AUTO) 79.6 % (42.2-75.2); PLATELET COUNT (AUTO) 394 K/uL (140-450); RED BLOOD CELL COUNT(AUTO) 4.58 MIL/uL (4.20-5.40); RED CELL DISTRIBUTION WIDTH 14.5 % (11.6-13.7); WHITE BLOOD COUNT (AUTO) 8.9 K/uL (4.8-10.8)
[2021-02-19 07:21] LABS: ANION GAP 12.9 (8-16); CARBON DIOXIDE 24.9 mmol/L (21-32); CHLORIDE 131 mmol/L (98-107); CREATININE 1.1 mg/dL (0.6-1.3); GLUCOSE 190 mg/dL (74-106); POTASSIUM 3.8 mmol/L (3.5-5.1); UREA NITROGEN, BLOOD 38 mg/dL (7-18)
[2021-02-19 07:34] LABS: ALBUMIN 2.6 g/dL (3.4-5.0); BILIRUBIN,DIRECT 0.2 mg/dL (0.0-0.3); TOTAL BILIRUBIN 0.6 mg/dL (0.0-1.0)
[2021-02-19 07:40] LABS: SODIUM SERUM 165 mmol/L (136-145)
--- NOTE | 2021-02-19 07:55 | NUR ---
ENDORSED TO AM NURSE FOR CONTINUITY OF CARE. PATIENT ON O2 5L NC SATING AT 92%. NO S/S OF SOB NOTED.
--- NOTE | 2021-02-19 07:56 | NUR ---
RECEIVED PATIENT FROM HEAD HOLDER NURSE FOR CONTINUITY OF CARE. PATIENT IS RESTING IN BED, A/A/O X3, ENGLISH SPEAKING. RESPIRATORY EVEN AND UNLABORED, ON 5L OXYGEN VIA NC, O2 SAT 95%. NO SIGN OF DISTRESS NOTED. SKIN WARM, DRY, NON DIAPHORETIC. PICC LINE DOUBLE LUMENS NOTED ON RIGHT UPPER ARM, INTACT AND PATENT, IS INFUSING FLUID ORDER. ROE CATHETER IN PLACE, CLEAR YELLOW URINE NOTED. PATIENT IS CALM, AND COOPERATIVE. ABLE TO FOLLOW COMMANDS. DENIES ANY PAIN OR DISCOMFORT. PLAN OF CARE DISCUSSED. PRECAUTION IN PLACE. CALL LIGHT WITHIN REACH. WILL CONTINUE TO MONITOR.
[2021-02-19 08:00] VITALS: BP 145/66
[2021-02-19] MEDS: BLOOD GLUCOSE MONITORING 1 DEV DEV FS SCH ×3 (08:02→17:26)
[2021-02-19] MEDS: INSULIN LISPRO SLIDING SCALE 100 UNITS/ML VIAL SUBQ PRN ×4 (08:03→22:44)
[2021-02-19] MEDS: metFORMIN 850 MG TAB PO SCH ×2 (08:49→17:14)
[2021-02-19] MEDS: ZINC SULF 220 MG CAP PO SCH (08:49)
[2021-02-19] MEDS: METOPROLOL 25 MG TAB PO SCH ×2 (08:50→21:00)
--- NOTE | 2021-02-19 08:50 | NUR ---
SCHEDULE MEDICATIONS GIVEN WITH EDUCATION, PATIENT TOLERATED WELL. NO SIGN OF DISTRESS NOTED. PRECAUTION IN PLACE. CALL LIGHT WITHIN REACH. WILL CONTINUE TO MONITOR.
[2021-02-19] MEDS: ASCORBIC ACID 500 MG TAB PO SCH (08:51)
[2021-02-19] MEDS: amLODIPine 5 MG TAB PO SCH (08:51)
[2021-02-19] MEDS: LOSARTAN 50 MG TAB PO SCH (08:51)
[2021-02-19] MEDS: PANTOPRAZOLE 40 MG TABEC PO SCH (08:52)
[2021-02-19 12:00] VITALS: BP 150/86
--- NOTE | 2021-02-19 12:14 | NUR ---
BLOOD SUGAR CHECK 180, 2 UNITS OF INSULIN GIVEN TO COVER. PATIENT TOLERATED WELL. NO SIGN OF DISTRESS NOTED. PRECAUTION IN PLACE. CALL LIGHT WITHIN REACH. WILL CONTINUE TO MONITOR.
[2021-02-19] MEDS: DEXTROSE 5% 1,000 ML IV SCH ×2 (12:16→21:30)
--- NOTE | 2021-02-19 13:09 | NUR ---
SCHEDULE MEDICATION GIVEN WITH EDUCATION, PATIENT TOLERATED WELL. NO SIGN OF DISTRESS NOTED. PRECAUTION IN PLACE. CALL LIGHT WITHIN REACH. WILL CONTINUE TO MONITOR.
[2021-02-19] MEDS: BARICITINIB 2 MG PO SCH (15:46)
[2021-02-19 16:00] VITALS: BP 143/77
--- NOTE | 2021-02-19 17:26 | NUR ---
BLOOD SUGAR CHECK 265, 6 UNITS OF INSULIN GIVEN TO COVER. PATIENT TOLERATED WELL. NO SIGN OF DISTRESS NOTED. O2 SAT 98%. FAMILY AT WINDOW. PRECAUTION IN PLACE. CALL LIGHT WITHIN REACH. WILL CONTINUE TO MONITOR.
--- NOTE | 2021-02-19 19:20 | NUR ---
ENDORSED PATIENT TO SAFE EXPERT NURSE FOR CONTINUITY OF CARE. PATIENT IS STABLE.
[2021-02-19] MEDS: ALBUTEROL HFA MDI 90 MCG/ACTUATION 8 GM INH PRN ×2 (19:30→23:58)
[2021-02-19] MEDS: MEROPENEM 1,000 MG in NACL 0.9% 50 ML IV SCH (21:30)
--- NOTE | 2021-02-19 23:56 | NUR ---
2330 checked on patient. patient is asleep. no sob noted at this time. no bipap needed for pt at this time. pt on 6lnc with humidity sats 95%
[2021-02-20 00:20] VITALS: BP 138/75
--- NOTE | 2021-02-20 02:46 | NUR ---
0236 PLACED PATIENT BACK ON BIPAP DUE TO SOB. SAME SETTINGS IPAP 10 EPAP 5 RR16 50%.
[2021-02-20 04:15] VITALS: BP 140/78
[2021-02-20] MEDS: MEROPENEM 1,000 MG in NACL 0.9% 50 ML IV SCH ×3 (05:00→21:50)
[2021-02-20] MEDS: DEXTROSE 5% 1,000 ML IV SCH ×3 (06:17→23:26)
[2021-02-20 06:53] LABS: BASOPHILS % (AUTO) 0.1 % (0.0-2.0); HEMATOCRIT 38.3 % (36-48); HEMOGLOBIN 12.4 g/dL (12.0-16.0); LYMPHOCYTES # (AUTO) 0.9 K/uL (2.5-16.5); LYMPHOCYTES % (AUTO) 9.6 % (20.5-51.1); MEAN CORPUSCULAR HEMOGLOBIN 29 pg (27-31); MEAN CORPUSCULAR HGB CONC 32 g/dL (33-37); MEAN CORPUSCULAR VOLUME 88.6 fL (80-94); MONOCYTES # (AUTO) 0.7 K/uL (0.8-1.0); MONOCYTES % (AUTO) 7.8 % (1.7-9.3); NEUTROPHILS # (AUTO) 7.6 K/uL (1.8-7.7); NEUTROPHILS % (AUTO) 82.5 % (42.2-75.2); PLATELET COUNT (AUTO) 312 K/uL (140-450); RED BLOOD CELL COUNT(AUTO) 4.32 MIL/uL (4.20-5.40); RED CELL DISTRIBUTION WIDTH 14.4 % (11.6-13.7); WHITE BLOOD COUNT (AUTO) 9.2 K/uL (4.8-10.8)
--- NOTE | 2021-02-20 07:15 | NUR ---
RECEIVED PATIENT FROM HOUSE PAINTER HELPER NURSE FOR CONTINUITY OF CARE. PATIENT IS A/A/O X3. FAMILY AT WINDOW. ON BIPAP MACHINE, RESPIRATORY EVEN AND UNLABORED, O2 SAT 95%. NO SIGN OF DISTRESS NOTED. SKIN WARM, DRY, NON DIAPHORETIC. PICC LINE DOUBLE LUMENS NOTED, ON RIGHT UPPER ARM, INTACT AND PATENT, IS INFUSING FLUID ORDER. ROE CATHETER IN PLACE, CLEAR YELLOW URINE OUTPUT. PATIENT DENIES ANY PAIN OR DISCOMFORT. ABLE TO MAKE NEED KNOWN. PLAN OF CARE DISCUSSED. PRECAUTION IN PLACE. CALL LIGHT WITHIN REACH. WILL CONTINUE TO MONITOR.
[2021-02-20] MEDS: BLOOD GLUCOSE MONITORING 1 DEV DEV FS SCH ×4 (07:37→21:00)
[2021-02-20 08:00] VITALS: BP 157/86
[2021-02-20 08:01] LABS: ANION GAP 12.9 (8-16); CARBON DIOXIDE 26.1 mmol/L (21-32); CHLORIDE 129 mmol/L (98-107); GLUCOSE 132 mg/dL (74-106); UREA NITROGEN, BLOOD 38 mg/dL (7-18)
--- NOTE | 2021-02-20 09:40 | NUR ---
DR ROB AT BEDSIDE. TORB CXR STAT AND BNP STAT. WILL FOLLOW ORDER.
[2021-02-20] MEDS: amLODIPine 5 MG TAB PO SCH (09:44)
[2021-02-20] MEDS: ZINC SULF 220 MG CAP PO SCH (09:45)
[2021-02-20] MEDS: PANTOPRAZOLE 40 MG TABEC PO SCH (09:45)
[2021-02-20] MEDS: metFORMIN 850 MG TAB PO SCH ×2 (09:45→16:55)
[2021-02-20] MEDS: LOSARTAN 50 MG TAB PO SCH (09:45)
--- NOTE | 2021-02-20 09:45 | NUR ---
SCHEDULE MEDICATIONS GIVEN WITH EDUCATION TO PATIENT AND FAMILY MEMBER AT WINDOW. VERBALIZED UNDERSTANDING. PRECAUTION IN PLACE. CALL LIGHT WITHIN REACH. WILL CONTINUE TO MONITOR.
[2021-02-20] MEDS: ASCORBIC ACID 500 MG TAB PO SCH (09:46)
[2021-02-20] MEDS: METOPROLOL 25 MG TAB PO SCH ×2 (09:46→21:50)
[2021-02-20 10:34] LABS: SODIUM SERUM 164 mmol/L (136-145)
--- NOTE | 2021-02-20 10:55 | NUR ---
PT REMOVED FROM BIPAP AND PLACED ON 9L NC BUBBLE HUMIDIFIER. NURSE MADE AWARE. WILL CONTINUE TO MONITOR.
--- NOTE | 2021-02-20 11:21 | NUR ---
PATIENT'S GRANDSON, LUIS ALBERTO HAYES'S SON, CALLED TO UPDATE PATIENT'S CONDITION, ALL QUESTIONS WERE ANSWERED.
[2021-02-20 12:00] VITALS: BP 143/91
[2021-02-20] MEDS: INSULIN LISPRO SLIDING SCALE 100 UNITS/ML VIAL SUBQ PRN ×3 (12:18→22:19)
--- NOTE | 2021-02-20 12:21 | NUR ---
BLOOD SUGAR CHECK 245, 2 UNITS OF INSULIN GIVEN TO COVER. SCHEDULE MEDICATION GIVEN WITH EDUCATION. PATIENT TOLERATED WELL. PRECAUTION IN PLACE. CALL LIGHT WITHIN REACH. WILL CONTINUE TO MONITOR.
[2021-02-20] MEDS ORDERED: HEPARIN PER PHARMACY MC PRN (12:50)
--- NOTE | 2021-02-20 14:20 | NUR ---
PATIENT IS SLEEPING, CHEST RISE AND FALL NOTED, NO SIGN OF DISTRESS NOTED, O2 SAT 95%. PRECAUTION IN PLACE. CALL LIGHT WITHIN REACH. WILL CONTINUE TO MONITOR.
[2021-02-20 15:09] LABS: PROTHROMBIN TIME 11.9 secs (10.8-13.4)
[2021-02-20] MEDS: BARICITINIB 2 MG PO SCH (15:52)
[2021-02-20 16:00] VITALS: BP 138/76
[2021-02-20] MEDS: hePARIN / DEXT 5% PREMIX 250 ML IV SCH (16:53)
--- NOTE | 2021-02-20 17:25 | NUR ---
BLOOD SUGAR CHECK 241, 4 UNITS OF INSULIN GIVEN TO COVER. 4800UNITS BOLUS GIVEN. HEPARIN DRIP START AT 1200 UNITS/HR PER ORDER WITH EDUCATION. PATIENT TOLERATED WELL. PRECAUTION IN PLACE. CALL LIGHT WITHIN REACH. WILL CONTINUE TO MONITOR.
--- NOTE | 2021-02-20 19:25 | NUR ---
ENDORSED PATIENT TO VIDEO TECHNICIAN NURSE FOR CONTINUITY OF CARE. PATIENT IS STABLE.
[2021-02-20 20:00] VITALS: BP 129/79
[2021-02-21 04:00] VITALS: BP 136/81
[2021-02-21] MEDS: MEROPENEM 1,000 MG in NACL 0.9% 50 ML IV SCH ×3 (05:07→21:00)
[2021-02-21 06:07] LABS: LD2 FRACTION 30 % (25-40); LD5 FRACTION 14 % (4-20)
[2021-02-21 06:22] LABS: LACTATE DEHYDROGENASE 479 IU/L (0-214); LD1 FRACTION 10 % (17-32); LD3 FRACTION 28 % (17-27); LD4 FRACTION 18 % (5-13)
[2021-02-21] MEDS: DEXTROSE 5% 1,000 ML IV SCH ×3 (06:37→19:09)
[2021-02-21] MEDS: BLOOD GLUCOSE MONITORING 1 DEV DEV FS SCH ×4 (06:38→21:00)
[2021-02-21 06:54] LABS: ANION GAP 12.1 (8-16); CARBON DIOXIDE 26.6 mmol/L (21-32); CHLORIDE 125 mmol/L (98-107); CREATININE 0.8 mg/dL (0.6-1.3); GLUCOSE 181 mg/dL (74-106); POTASSIUM 3.7 mmol/L (3.5-5.1); UREA NITROGEN, BLOOD 30 mg/dL (7-18)
[2021-02-21 07:00] LABS: SODIUM SERUM 160 mmol/L (136-145)
[2021-02-21 07:18] LABS: BASOPHILS # (AUTO) 0.1 K/uL (0.00-0.22); BASOPHILS % (AUTO) 0.9 % (0.0-2.0); EOSINOPHILS % (AUTO) 0.1 % (0.0-4.0); HEMATOCRIT 38.2 % (36-48); HEMOGLOBIN 12.2 g/dL (12.0-16.0); LYMPHOCYTES # (AUTO) 0.9 K/uL (2.5-16.5); LYMPHOCYTES % (AUTO) 9.7 % (20.5-51.1); MEAN CORPUSCULAR HEMOGLOBIN 28 pg (27-31); MEAN CORPUSCULAR HGB CONC 32 g/dL (33-37); MEAN CORPUSCULAR VOLUME 88.7 fL (80-94); MONOCYTES # (AUTO) 0.5 K/uL (0.8-1.0); MONOCYTES % (AUTO) 5.3 % (1.7-9.3); NEUTROPHILS # (AUTO) 8.1 K/uL (1.8-7.7); PLATELET COUNT (AUTO) 235 K/uL (140-450); RED BLOOD CELL COUNT(AUTO) 4.31 MIL/uL (4.20-5.40); RED CELL DISTRIBUTION WIDTH 14.5 % (11.6-13.7); WHITE BLOOD COUNT (AUTO) 9.6 K/uL (4.8-10.8)
--- NOTE | 2021-02-21 07:30 | NUR ---
RECEIVED REPORT FROM LATHE TENDER NURSE FOR CONTINUITY OF CARE. PT IN BED, AWAKE. BREATHING SYMMETRICAL. NO DISTRESS NOTED AT THIS TIME. DENIES PAIN AT THIS TIME. PICC LINE ON JANES INTACT AND PATENT. CALL LIGHT WITHIN REACH. ALL SAFETY MEASURES IN PLACE/
[2021-02-21 08:00] VITALS: BP 163/65
[2021-02-21] MEDS: amLODIPine 5 MG TAB PO SCH (09:03)
[2021-02-21] MEDS: PANTOPRAZOLE 40 MG TABEC PO SCH (09:04)
[2021-02-21] MEDS: metFORMIN 850 MG TAB PO SCH ×2 (09:04→17:00)
[2021-02-21] MEDS: ZINC SULF 220 MG CAP PO SCH (09:04)
[2021-02-21] MEDS: LOSARTAN 50 MG TAB PO SCH (09:04)
[2021-02-21] MEDS: ASCORBIC ACID 500 MG TAB PO SCH (09:05)
[2021-02-21] MEDS: METOPROLOL 25 MG TAB PO SCH ×2 (09:05→21:00)
--- NOTE | 2021-02-21 10:37 | NUR ---
PT IN BED AWAKE, MALTESE SPEAKING WITH CONFUSION, A/O X2. RESPIRATION EVEN AND UNLABORED. ON O2 VIA NC AT 9L. DENIES PAIN AT THIS TIME. ROE CATHETER INTACT AND PATENT DRAINING YELLOW URINE. SCHEDULED AM MEDS GIVEN PER MD ORDER. CALL LIGHT WITHIN REACH. DAUGHTER ARE BY THE WINDOW. ALL SAFETY MEASURES IN PLACE.
--- NOTE | 2021-02-21 10:55 | NUR ---
PTT GREATER THAN 150 PER PROTOCOL WILL HOLD HEPARIN DRIP FOR ONE HOUR AND DECREASE BY 200ML/HR. NEW RATE 800ML/HR STARTING AT 12PM Addendum: 02/21/21 at 1902 by Winter Conde RN RN no charge nurse on shift. per bethel "there are plenty of nurses on the floor for a second nurse to cosign"
[2021-02-21 12:00] VITALS: BP 156/58
[2021-02-21] MEDS: hePARIN / DEXT 5% PREMIX 250 ML IV SCH ×2 (12:00→19:01)
[2021-02-21] MEDS: INSULIN LISPRO SLIDING SCALE 100 UNITS/ML VIAL SUBQ PRN ×3 (13:01→22:47)
--- NOTE | 2021-02-21 13:20 | NUR ---
PT IN BED AWAKE. SHALLOW BREATHS NOTED ON O2 VIA NC AT 9L, O2 SAT 95% HOB KEPT ELEVATED. DENIES PAIN AT THIS TIME. SCHEDULED MEDICATIONS GIVEN PER MD ORDER. BLOOD SUGAR AT 1130 WAS 385, INSULIN GIVEN PER SLIDING SCALE. PICC LINE INTACT AND PATENT. CALL LIGHT PLACED WITHIN EASY REACH. ALL SAFETY MEASURES IN PLACE. DAUGHTER BY THE WINDOW
[2021-02-21] MEDS: BARICITINIB 2 MG PO SCH (15:13)
--- NOTE | 2021-02-21 15:56 | NUR ---
02/21/21 RD FOLLOW UP COMPLETED PLEASE REFER TO NUTRITION ASSESSMENT UNDER CARE ACTIVITY FOR ESTIMATED NUTRITIONAL NEEDS. 1. CONTINUE CCHO 60 GM, MECHANICAL SOFT DIET TOLERATED 2. CONTINUE GLUCERNA TID PER PROTOCOL 3. MONITOR BLOOD GLUCOSE LEVELS 4. RD TO FOLLOW-UP 2-3 DAYS, HIGH RISK JAYLENE RODRIGUEZ RD
[2021-02-21 16:00] VITALS: BP 127/41
--- NOTE | 2021-02-21 16:30 | NUR ---
BLOOD SUGAR 258, INSULIN GIVEN PER SLIDING SCALE. PT IN BED, AWAKE WITH O2 VIA NASAL CANNULA AT 9L. DENIES PAIN AT THIS TIME. CALL LIGHT WITHIN REACH. WILL CONTINUE TO MONITOR.
--- NOTE | 2021-02-21 18:50 | NUR ---
PTT VALUE CAME BACK AT 68.6, NO CHANGE PER ORDER Addendum: 02/21/21 at 1903 by Winter Conde RN RN no charge nurse on shift. per bethel "there are plenty of nurses on the floor for a second nurse to cosign"
--- NOTE | 2021-02-21 19:41 | NUR ---
ENDORSED PT TO OCC THER NURSE
--- NOTE | 2021-02-21 19:48 | NUR ---
PT PRESENTS WITH LABORED BREATHING, TACHYPNEIC, GRUNTING, USING ACCESSORY MUSCLES SATING 96% ON 9 LPM NC W/ BUBBLE HUMIDIFIER. BS REVEAL DIMINISHED THROUGHOUT COARSE TOWARDS BASES. WILL CONTINUE TO MONITOR.
[2021-02-22 00:26] VITALS: BP 121/56
[2021-02-22] MEDS: DEXTROSE 5% 1,000 ML IV SCH ×4 (00:57→17:52)
[2021-02-22] MEDS: hePARIN / DEXT 5% PREMIX 250 ML IV SCH ×4 (02:30→23:45)
--- NOTE | 2021-02-22 02:39 | NUR ---
RESPONDED TO REQUEST FOR SERVICE. PT LAYING IN BED SATING 95% ON 9LPM NC. SHE RESPONDS TO MY COMMANDS AND VERBALIZES SHE DOSE NOT FEEL SOB. BS CLEAR APICES DIMINISHED BASES WITH SCATTERED RALES. AUDIBLE EXPIATORY GRUNTING THAT HAS BEEN PRESENT FOR A COUPLE DAYS ACCORDING TO RN. WILL CONTINUE TO MONITOR.
--- NOTE | 2021-02-22 04:00 | NUR ---
PLACED PT BACK ON BIPAP DUE TO WORK OF BREATHING. SETTINGS IPAP 10 EPAP 5 RR 16 55% FIO2. PT SATING AT 92%, STILL TACHYPNEIC. WILL CONTINUE TO MONITOR.
[2021-02-22 05:47] VITALS: BP 148/69
[2021-02-22] MEDS: MEROPENEM 1,000 MG in NACL 0.9% 50 ML IV SCH ×3 (05:50→20:57)
[2021-02-22] MEDS: INSULIN LISPRO SLIDING SCALE 100 UNITS/ML VIAL SUBQ PRN ×4 (06:23→21:21)
[2021-02-22] MEDS: BLOOD GLUCOSE MONITORING 1 DEV DEV FS SCH ×4 (06:24→21:20)
--- NOTE | 2021-02-22 07:29 | NUR ---
RECEIVED REPORT FROM MANAGER MERCHANDISE NURSE FOR CONTINUITY OF CARE. PT IN BED ASLEEP WITH BIPAP. BREATHING SYMMETRICAL. NO S/SX OF DISCOMFORT. ALL SAFETY MEASURES IN PLACE.
[2021-02-22 08:00] VITALS: BP 171/97
[2021-02-22] MEDS: ZINC SULF 220 MG CAP PO SCH (09:00)
[2021-02-22] MEDS: ASCORBIC ACID 500 MG TAB PO SCH (09:00)
[2021-02-22] MEDS: METOPROLOL 25 MG TAB PO SCH ×2 (09:01→21:23)
[2021-02-22] MEDS: LOSARTAN 50 MG TAB PO SCH (09:01)
[2021-02-22] MEDS: metFORMIN 850 MG TAB PO SCH ×2 (09:01→17:12)
[2021-02-22] MEDS: DEXAMETHASONE 4 MG/ML VIAL IVP SCH (09:02)
[2021-02-22] MEDS: PANTOPRAZOLE 40 MG TABEC PO SCH (09:02)
[2021-02-22] MEDS: amLODIPine 5 MG TAB PO SCH (09:03)
--- NOTE | 2021-02-22 09:29 | NUR ---
ALL SCHEDULED AM MEDICATIONS GIVEN PER MD ORDER
--- NOTE | 2021-02-22 11:50 | NUR ---
BLOOD SUGAR 298, 6 UNITS INSULIN GIVEN PER SLIDING SCALE. PT IN BED, ALERT AND AWAKE. ON O2 VIA NC AT 9L. DENIES PAIN AT THIS TIME. HOB KEPT ELEVATED. ENCOURAGED TO DO DEEP BREATHING. CALL LIGHT PLACED WITHIN REACH. WILL CONTINUE TO MONITOR
[2021-02-22 12:00] VITALS: BP 127/66
--- NOTE | 2021-02-22 12:20 | NUR ---
PT PTT CAME BACK 30.6, PHARMACY AND LAB WAS NOTIFIED OF CHANGE. LAB WILL COME AND PT TO BE DRAWN FROM PICC AND VEIN IN OTHER ARM FOR ACCURACY.
[2021-02-22] MEDS: BARICITINIB 2 MG PO SCH (15:00)
--- NOTE | 2021-02-22 15:29 | NUR ---
SPOKE WITH LAB AND PHARMACY. HEPARIN DRIP INCREASED BY 270 UNITS, BOLUS ADMINISTERED PER MD ORDER. NEW RATE 870 UNITS/HR
[2021-02-22 16:00] VITALS: BP 132/68
--- NOTE | 2021-02-22 19:25 | NUR ---
PT PRESENTS LAYING IN BED W/ NO SIGNS OF RESPIRATORY DISTRESS SATING 96% ON 9 LPM NC W/ BUBBLE HUMIDIFIER. BS REVEAL DIMINISHED THROUGHOUT COARSE TOWARDS BASES. WILL CONTINUE TO MONITOR.
--- NOTE | 2021-02-22 19:36 | NUR ---
PATIENT ON HEPARIN DRIP AT 870 UNITS/HOUR.
--- NOTE | 2021-02-22 19:36 | NUR ---
RECEIVED REPORT FROM AM NURSE FOR CONTINUITY OF CARE. PATIENT IS AWAKE, ALERT RESTING IN HIGH FOWLERS POSITION WITH BIPAP ON. NO S/S OF RESPIRATORY DISTRESS. RESPIRATION EVEN UNLABORED. ALL SAFETY PRECAUTIONS ARE IN PLACE. IVF D5 INFUSING ORDERED BY MD. CALL LIGHT WITHIN REACH. FAMILY MEMBER BY THE WINDOW. WILL CONTINUE TO MONITOR.
--- NOTE | 2021-02-22 19:36 | NUR ---
ENDORSED TO RATE EXAMINER NURSE. PT IN BED, AWAKE WITH BIPAP. RT AT BEDSIDE.
[2021-02-22 20:00] VITALS: BP 138/65
--- NOTE | 2021-02-22 20:03 | NUR ---
ANSWERED CALL LIGHT. ATTENDED TO HER NEEDS.
--- NOTE | 2021-02-22 20:57 | NUR ---
ADMINISTERED SCHEDULED 2100 MEDICATIONS PER MD ORDERED.
--- NOTE | 2021-02-22 21:21 | NUR ---
BLOOD SUGAR WAS 287 ADMINISTERED HUMALOG INSULIN ORDERED PER SLIDING SCALE.
--- NOTE | 2021-02-22 22:35 | NUR ---
RECEIVED A CALL FROM DANAY (LAB) REPORTING CRITICAL LAB VALUE PTT GREATER THAN 150. DISCONTINUED HEPARIN FOR ONE HOUR PER PROTOCOL.
--- NOTE | 2021-02-22 22:42 | NUR ---
PT PRESENTS LAYING IN BED ON 9LPM NC W/ BUBBLE HUMIDIFIER SATING 94% NO DISTRESS NOTED. WILL CONTINUE TO MONITOR.
[2021-02-23] VITALS: BP 147/80
[2021-02-23] MEDS: DEXTROSE 5% 1,000 ML IV SCH ×4 (00:06→21:47)
--- NOTE | 2021-02-23 01:01 | NUR ---
PATIENT SLEEPING WITH NO SHORTNESS OF BREATH NOTED. ON 9L NC SATING AT 93 %. WILL CONTINUE TO MONITOR PT.
[2021-02-23] MEDS: MEROPENEM 1,000 MG in NACL 0.9% 50 ML IV SCH ×2 (05:56→13:51)
[2021-02-23] MEDS: INSULIN LISPRO SLIDING SCALE 100 UNITS/ML VIAL SUBQ PRN ×4 (06:10→17:44)
[2021-02-23] MEDS: BLOOD GLUCOSE MONITORING 1 DEV DEV FS SCH ×4 (06:35→21:00)
[2021-02-23 06:45] LABS: BASOPHILS # (AUTO) 0.1 K/uL (0.00-0.22); BASOPHILS % (AUTO) 0.6 % (0.0-2.0); EOSINOPHILS # (AUTO) 0.2 K/uL (0-0.4); EOSINOPHILS % (AUTO) 2.3 % (0.0-4.0); HEMOGLOBIN 11.1 g/dL (12.0-16.0); LYMPHOCYTES # (AUTO) 1.7 K/uL (2.5-16.5); LYMPHOCYTES % (AUTO) 16.4 % (20.5-51.1); MEAN CORPUSCULAR HEMOGLOBIN 29 pg (27-31); MEAN CORPUSCULAR HGB CONC 33 g/dL (33-37); MEAN CORPUSCULAR VOLUME 88.8 fL (80-94); MONOCYTES # (AUTO) 0.6 K/uL (0.8-1.0); MONOCYTES % (AUTO) 5.5 % (1.7-9.3); NEUTROPHILS # (AUTO) 7.6 K/uL (1.8-7.7); NEUTROPHILS % (AUTO) 75.2 % (42.2-75.2); PLATELET COUNT (AUTO) 164 K/uL (140-450); RED BLOOD CELL COUNT(AUTO) 3.83 MIL/uL (4.20-5.40)
[2021-02-23 06:51] LABS: ANION GAP 11.7 (8-16); CARBON DIOXIDE 26.3 mmol/L (21-32); CHLORIDE 112 mmol/L (98-107); CREATININE 0.8 mg/dL (0.6-1.3); GLUCOSE 214 mg/dL (74-106); SODIUM SERUM 146 mmol/L (136-145); UREA NITROGEN, BLOOD 23 mg/dL (7-18)
[2021-02-23 07:13] VITALS: BP 124/58
--- NOTE | 2021-02-23 07:55 | NUR ---
ROE CATHETER REMOVED ASEPTICALLY. ENDORSED PATIENT TO AM NURSE FOR CONTINUITY OF CARE.
[2021-02-23 08:00] VITALS: BP 104/71
[2021-02-23] MEDS: metFORMIN 850 MG TAB PO SCH ×2 (08:00→17:07)
[2021-02-23] MEDS: ASCORBIC ACID 500 MG TAB PO SCH (09:00)
[2021-02-23] MEDS: LOSARTAN 50 MG TAB PO SCH (09:00)
[2021-02-23] MEDS: amLODIPine 5 MG TAB PO SCH (09:00)
[2021-02-23] MEDS: METOPROLOL 25 MG TAB PO SCH ×2 (09:00→21:00)
[2021-02-23] MEDS: ZINC SULF 220 MG CAP PO SCH (09:00)
[2021-02-23] MEDS: PANTOPRAZOLE 40 MG TABEC PO SCH (09:00)
[2021-02-23] MEDS: DEXAMETHASONE 4 MG/ML VIAL IVP SCH (09:00)
--- NOTE | 2021-02-23 10:00 | NUR ---
HEPARIN DRIP CHANGED TO 530 UNITS PER PEDRO PABLO AND ORDER. APTT OF 72.
--- NOTE | 2021-02-23 11:00 | NUR ---
IV FLUIDS CHANGED TO DEXTROSE 100ML/HR.
[2021-02-23 12:00] VITALS: BP 144/70
--- NOTE | 2021-02-23 12:06 | NUR ---
02/23/21 RD FOLLOW UP COMPLETED PLEASE REFER TO NUTRITION ASSESSMENT UNDER CARE ACTIVITY FOR ESTIMATED NUTRITIONAL NEEDS. 1. CONTINUE CCHO 60 GM, MECHANICAL SOFT DIET TOLERATED 2. CONTINUE GLUCERNA TID PER PROTOCOL -PROVIDES 660 KCAL AND 30 GM PROTEIN DAILY 3. MONITOR BLOOD GLUCOSE LEVELS 4. RD TO FOLLOW-UP 3-5 DAYS, MODERATE RISK (DOWNGRADED D/T INCREASED PO INTAKE) JAYLENE RODRIGUEZ RD
--- NOTE | 2021-02-23 13:00 | NUR ---
PT SATING TO 80S ON 9L NC. CHANGED BACK TO BIPAP PER RT.
--- NOTE | 2021-02-23 13:35 | NUR ---
PLACED PT BACK ON BIPAP. PT TACHYPNIC AND DESATING TO 87% ON 15L NC. PT SPO2 INCREASED TO 92% WILL CONTINUE TO MONITOR
[2021-02-23] MEDS: BARICITINIB 2 MG PO SCH (14:42)
[2021-02-23 16:00] VITALS: BP 149/66
[2021-02-23] MEDS ORDERED: CRUSHER, PILL MC ONE (17:12)
--- NOTE | 2021-02-23 19:46 | NUR ---
ENDOSRED TO [facility] NURSE FOR CONTINUITY OF CARE.
--- NOTE | 2021-02-23 19:47 | NUR ---
RECEIVED REPORT FROM AM NURSE. PATIENT AWAKE ON BIPAP TOLERATING WELL. NO SOB NOTED. SAFETY MEASURES IN PLACE. IVF D5 100 ML/HR INFUSING ON THE JANES PICC. HEPARIN DRIP RUNNING PER MD ORDERED ON THE JANES PICC LINE. ON HIGH FOWLERS POSITION. CALL LIGHT WITHIN REACH. WILL CONTINUE TO MONITOR.
[2021-02-23 20:00] VITALS: BP 151/77
[2021-02-23] MEDS: INSULIN LANTUS 100 UNITS/ML 10 ML VIAL SUBQ SCH (21:00)
--- NOTE | 2021-02-23 21:00 | NUR ---
ADMINISTERED MEDICATIONS SCHEDULED PER MD ORDERED.
[2021-02-23] MEDS: hePARIN / DEXT 5% PREMIX 250 ML IV SCH (23:43)
[2021-02-24] VITALS: BP 146/74
[2021-02-24] MEDS: ALBUTEROL HFA MDI 90 MCG/ACTUATION 8 GM INH PRN (03:19)
--- NOTE | 2021-02-24 03:21 | NUR ---
Pt received on bipap 10/, 16, 60%. At 2200 pt requested to eat. Pt taken off bipap and placed on 13L/m Nasal cannula with bubble humidifier. Pt holland well off bipap. At 0220, pt doing well on nasal cannula. Pt given MDI albuterol for PRN due to coarse BS. Pt states no SOB on nasal canula. Pt holland MDI tx well.
[2021-02-24 04:00] VITALS: BP 153/77
[2021-02-24 06:54] LABS: BASOPHILS % (AUTO) 0.3 % (0.0-2.0); EOSINOPHILS # (AUTO) 0.1 K/uL (0-0.4); EOSINOPHILS % (AUTO) 0.7 % (0.0-4.0); HEMATOCRIT 35.4 % (36-48); HEMOGLOBIN 11.6 g/dL (12.0-16.0); LYMPHOCYTES # (AUTO) 1.9 K/uL (2.5-16.5); LYMPHOCYTES % (AUTO) 19.5 % (20.5-51.1); MEAN CORPUSCULAR HEMOGLOBIN 29 pg (27-31); MEAN CORPUSCULAR HGB CONC 33 g/dL (33-37); MEAN CORPUSCULAR VOLUME 86.8 fL (80-94); MONOCYTES # (AUTO) 0.6 K/uL (0.8-1.0); MONOCYTES % (AUTO) 6.1 % (1.7-9.3); NEUTROPHILS % (AUTO) 73.4 % (42.2-75.2); PLATELET COUNT (AUTO) 135 K/uL (140-450); RED BLOOD CELL COUNT(AUTO) 4.07 MIL/uL (4.20-5.40); RED CELL DISTRIBUTION WIDTH 14.2 % (11.6-13.7); WHITE BLOOD COUNT (AUTO) 9.5 K/uL (4.8-10.8)
[2021-02-24] MEDS: BLOOD GLUCOSE MONITORING 1 DEV DEV FS SCH ×4 (06:58→21:00)
[2021-02-24] MEDS: INSULIN LISPRO SLIDING SCALE 100 UNITS/ML VIAL SUBQ PRN ×4 (06:59→21:00)
[2021-02-24] MEDS: DEXTROSE 5% 1,000 ML IV SCH ×2 (07:00→18:38)
[2021-02-24 07:20] LABS: ANION GAP 11.5 (8-16); CARBON DIOXIDE 26.5 mmol/L (21-32); CHLORIDE 110 mmol/L (98-107); CREATININE 0.8 mg/dL (0.6-1.3); GLUCOSE 164 mg/dL (74-106); SODIUM SERUM 144 mmol/L (136-145)
[2021-02-24 07:40] LABS: UREA NITROGEN, BLOOD 21 mg/dL (7-18)
--- NOTE | 2021-02-24 07:40 | NUR ---
ENDORSED PATIENT TO AM NURSE FOR CONTINUITY OF CARE. PT IS STABLE.
--- NOTE | 2021-02-24 07:40 | NUR ---
REPORT RECEIVED FROM PM SHIFT MILO LINN FOR CONTINUITY OF CARE. PT. STABLE WITH NC 13 LPM. NOT IN DISTRESS. IV ACCESS JANES PICC . HEPARIN DRIP RUNNING 6.7 ML /HR. . WILL FOLLOW UP WITH PTT RESULT PROTOCOL. ALL SAFETY MEASURES IN PLACED. WILL CONTINUE TO MONITOR THE PT.
[2021-02-24 08:00] VITALS: BP 141/74
--- NOTE | 2021-02-24 08:22 | NUR ---
RECEIVED ON SUPPLEMENTAL OXYGEN AT 13 LPM VIA HIGH FLOW BUBBLE HUMIDIFIER WITH A CURAPLEX NASAL CANNULA SATURATION 94$ RR 24 BPM BREATH SOUNDS DECREASED APEX TO MID; RALES BILATERAL BASES HIGH SCHOOL AUTO REPAIR TEACHER TO MONITOR
--- NOTE | 2021-02-24 08:45 | NUR ---
RECEIVED CALL FROM LAB FOR THIS PT. HAS COVID 19 PCR RESULT IS POSITIVE. NOTIFY MD. DR. FIGUEROA. ALSO PTT LEVEL 50.2 RESULT RECEIVED. PT. IS ON HEPARIN DRIP . PER PROTOCOL. NO CHANGES MADE ON HEPARIN DRIP. . WILL FOLLOW UP.
[2021-02-24] MEDS: METOPROLOL 25 MG TAB PO SCH ×2 (09:00→21:00)
[2021-02-24] MEDS: INSULIN LANTUS 100 UNITS/ML 10 ML VIAL SUBQ SCH ×2 (09:30→21:00)
[2021-02-24] MEDS: DEXAMETHASONE 4 MG/ML VIAL IVP SCH (10:31)
[2021-02-24] MEDS: LOSARTAN 50 MG TAB PO SCH (10:31)
[2021-02-24] MEDS: ZINC SULF 220 MG CAP PO SCH (10:32)
[2021-02-24] MEDS: PANTOPRAZOLE 40 MG TABEC PO SCH (10:32)
[2021-02-24] MEDS: amLODIPine 5 MG TAB PO SCH (10:33)
[2021-02-24] MEDS: ASCORBIC ACID 500 MG TAB PO SCH (10:34)
[2021-02-24] MEDS: metFORMIN 850 MG TAB PO SCH ×2 (10:45→17:44)
--- NOTE | 2021-02-24 11:07 | NUR ---
REVIEWED PULMONARY STATUS WITH DR. YECENIA HERCULES: DUONEB HHN Q6 AND Q4 PRN FOR SOB/WHEEZE; KEPP SATURATION GREATER THAN 90%
[2021-02-24] MEDS: hePARIN / DEXT 5% PREMIX 250 ML IV SCH ×2 (11:15→18:54)
[2021-02-24] MEDS: ALBUTEROL SULFATE/IPRATROPIU 3 ML SOL IH PRN (11:19)
[2021-02-24 12:00] VITALS: BP 136/88
--- NOTE | 2021-02-24 12:00 | NUR ---
PT.ALERT. CONTINUE ON HEPARIN DRIP WITHOUT TITERED.TOLERATING WELL. NO ANY BLEEDING NOTED. ORDERED LAB PTT/ PER PROTOCOL. WILL FOLLOW UP WITH RESULT. .
[2021-02-24] MEDS: ALBUTEROL SULFATE/IPRATROPIU 3 ML SOL IH SCH ×2 (14:16→19:54)
--- NOTE | 2021-02-24 15:00 | NUR ---
PT. ALERT, AWAKE . . SAFETY MEASURES IN PLACED. FAMILY AT WINDOW SIDE. CLOSELY MONITORING THE PT.
[2021-02-24] MEDS: BARICITINIB 2 MG PO SCH (15:47)
[2021-02-24 16:00] VITALS: BP 167/69
--- NOTE | 2021-02-24 17:00 | NUR ---
PT. CURRENTLY ON BIPAP. MAINTAINING SPO2 95 TO 100%. CONTINUE ON HEPARIN DRIP/ NO CHANGE IN RATE. LATEST PTT LEVEL IN RANGE 47.2.WILL FOLLOW UP PROTOCOL. ALL SAFETY MEASURES IN PLACED. WILL CONTINUE TO MONITOR THE PT.
--- NOTE | 2021-02-24 19:43 | NUR ---
REPORT GIVEN TO PM SHIFT RN IRIS. FOR CONTINUITY OF CARE.
--- NOTE | 2021-02-24 19:54 | NUR ---
PT PRESENTS TACHYPNEIC W/ INCREASED WOB. PT CANNOT TOLERATE BEING OFF THE BIPAP AT THIS TIME. GAVE TX INLINE AERATION IMPROVED PT TOLERATED WELL. WILL CONTINUE TO MONITOR.
[2021-02-24 20:00] VITALS: BP 126/69
[2021-02-25] VITALS: BP 122/68
--- NOTE | 2021-02-25 02:15 | NUR ---
PT PRESENTS LAYIN GIN BED ASLEEP. BS COARSE CRACKLES AT APICES DIMINISHED/SCATTERED COARSE CRACKLES AT BASES.. AUDIBLE EXPIATORY GRUNTING THAT HAS BEEN PRESENT FOR A COUPLE DAYS. NO DISTRESS NOTED PT SATING 95%. WILL CONTINUE TO MONITOR.
[2021-02-25 04:00] VITALS: BP 167/69
--- NOTE | 2021-02-25 04:20 | NUR ---
PATIENT AWAKE ALERT HAS BI-PAP I PAP/ 10, E PAP/ 10 RATE 16, 02 60 %. PATIENT HAS HEPARIN DRIP 670 UNITS 6.7ML/HR. +D5W 100 HOUR. BLOOD SUGAR HS WAS 163 GIVEN HUMALOG 2 UNITS. LANTUS 20 UNITS S.Q. NO DISTRESS NOTED.
[2021-02-25 06:41] LABS: BASOPHILS % (AUTO) 0.3 % (0.0-2.0); EOSINOPHILS % (AUTO) 0.3 % (0.0-4.0); HEMATOCRIT 33.7 % (36-48); HEMOGLOBIN 11.1 g/dL (12.0-16.0); LYMPHOCYTES # (AUTO) 1.4 K/uL (2.5-16.5); LYMPHOCYTES % (AUTO) 13.9 % (20.5-51.1); MEAN CORPUSCULAR HEMOGLOBIN 29 pg (27-31); MEAN CORPUSCULAR HGB CONC 33 g/dL (33-37); MEAN CORPUSCULAR VOLUME 87.4 fL (80-94); MONOCYTES # (AUTO) 0.7 K/uL (0.8-1.0); MONOCYTES % (AUTO) 6.6 % (1.7-9.3); NEUTROPHILS # (AUTO) 8.2 K/uL (1.8-7.7); NEUTROPHILS % (AUTO) 78.9 % (42.2-75.2); PLATELET COUNT (AUTO) 109 K/uL (140-450); RED BLOOD CELL COUNT(AUTO) 3.86 MIL/uL (4.20-5.40); RED CELL DISTRIBUTION WIDTH 14.4 % (11.6-13.7); WHITE BLOOD COUNT (AUTO) 10.4 K/uL (4.8-10.8)
[2021-02-25] MEDS: BLOOD GLUCOSE MONITORING 1 DEV DEV FS SCH ×4 (07:06→21:00)
--- NOTE | 2021-02-25 07:08 | NUR ---
0710 BLOOD SUGAR 59 GIVEN D50.
--- NOTE | 2021-02-25 07:30 | NUR ---
RECEIVED REPORT FROM WORKER'S COMPENSATION CLAIMS EXAMINER NURSE FOR CONTINUITY OF CARE. PT IN BED AWAKE, ALERT. BREATHING SYMMETRICAL, ON O2 VIA NC AT 9L. HOB KEPT ELEVATED. DENIES PAIN AT THIS TIME. ALL SAFETY MEASURES IN PLACE. CALL LIGHT WITHIN REACH
[2021-02-25] MEDS: ALBUTEROL SULFATE/IPRATROPIU 3 ML SOL IH SCH ×3 (07:36→19:00)
[2021-02-25 08:00] VITALS: BP 112/63
[2021-02-25] MEDS: DEXAMETHASONE 4 MG/ML VIAL IVP SCH (08:53)
[2021-02-25] MEDS: metFORMIN 850 MG TAB PO SCH ×2 (08:53→17:28)
[2021-02-25] MEDS: amLODIPine 5 MG TAB PO SCH (08:54)
[2021-02-25] MEDS: LOSARTAN 50 MG TAB PO SCH (08:54)
[2021-02-25] MEDS: METOPROLOL 25 MG TAB PO SCH ×2 (08:54→21:00)
[2021-02-25] MEDS: INSULIN LANTUS 100 UNITS/ML 10 ML VIAL SUBQ SCH ×2 (08:55→23:14)
[2021-02-25] MEDS: ZINC SULF 220 MG CAP PO SCH (08:55)
[2021-02-25] MEDS: PANTOPRAZOLE 40 MG TABEC PO SCH (08:55)
[2021-02-25] MEDS: ASCORBIC ACID 500 MG TAB PO SCH (08:55)
--- NOTE | 2021-02-25 08:57 | NUR ---
SCHEDULED AM MEDICATIONS GIVEN PER MD ORDER, BP MEDS HELD FOR DECREASED BP. DENIES DIZZINESS OR LIGHTHEADEDNESS. ALL SAFETY MEASURES IN PLACE. CALL LIGHT WITHIN REACH
[2021-02-25] MEDS: DEXTROSE 5% 1,000 ML IV SCH ×2 (08:59→13:47)
[2021-02-25 12:00] VITALS: BP 161/82
--- NOTE | 2021-02-25 12:09 | NUR ---
SPOKE TO MD AND PHARMACY. ORDER TO DC HEPARIN DRIP, BID LOVENOX 1MG ORDERED, AND HIT PANEL ORDERED. NO S/S OF DISTRESS. CALL LIGHT IN REACH. ALL SAFETY MEASURES IN PLACE. FAMILY OUTSIDE WINDOW
[2021-02-25] MEDS: INSULIN LISPRO SLIDING SCALE 100 UNITS/ML VIAL SUBQ PRN ×2 (12:13→16:14)
[2021-02-25 13:08] LABS: ANION GAP 12.4 (8-16); CARBON DIOXIDE 27.7 mmol/L (21-32); CHLORIDE 108 mmol/L (98-107); CREATININE 0.8 mg/dL (0.6-1.3); GLUCOSE 216 mg/dL (74-106); POTASSIUM 4.1 mmol/L (3.5-5.1); SODIUM SERUM 144 mmol/L (136-145); UREA NITROGEN, BLOOD 17 mg/dL (7-18)
--- NOTE | 2021-02-25 14:32 | NUR ---
PT RESTING IN BED. NO S/S OF DISTRESS. BREATHING SYMMETRICAL. CALL LIGHT IN REACH. ALL SAFETY MEASURES IN PLACE. FAMILY OUTSIDE WINDOW
[2021-02-25] MEDS: BARICITINIB 2 MG PO SCH (15:00)
[2021-02-25 16:00] VITALS: BP 122/58
--- NOTE | 2021-02-25 16:20 | NUR ---
PT RESTING IN BED. NO S/S OF DISTRESS. BREATHING SYMMETRICAL. CALL LIGHT IN REACH. ALL SAFETY MEASURES IN PLACE. PT CLEANED AND CHANGED Addendum: 02/25/21 at 1625 by Winter Conde RN RN PT O2 TITRATED TO 13L HUMIDIFIED NC
--- NOTE | 2021-02-25 18:00 | NUR ---
O2 TITRATED TO 10L VIA NC, O2 SAT 92-93% BREATHING SYMMETRICAL. PT ALERT AND AWAKE. DENIES PAIN. CALL LIGHT WITHIN REACH. ALL SAFETY MEASURES IN PLACE.
--- NOTE | 2021-02-25 19:34 | NUR ---
PT ENDORSED TO BANQUET WAITER/WAITRESS NURSE, IN NO DISTRESS. BREATHING SYMMETRICAL. ON 10L O2 VIA NC, DENIES PAIN.
--- NOTE | 2021-02-25 19:51 | NUR ---
DUONEB ON HOLD PER COVID PROTOCOL. MEDICATION NOT ADMINISTERED
[2021-02-25 20:00] VITALS: BP 108/68
[2021-02-25] MEDS ORDERED: LOVENOX 1MG/KG Q12H SUBQ SCH (20:00)
--- NOTE | 2021-02-25 20:30 | NUR ---
RECEIVED REPORT AT BEDSIDE FOR CONTINUITY OF CARE, PT IS AOX4 SHE IS ON 10 LITERS OF HI FLOW N/C. SHE HAS A RIGHT UPPER PICC LINE INTACT AND RUNNING D5 AT 100MLS/HR. PT SITTING UP IN BED HOB UP 90%. SHE HAS NO C/8O VOICED AT THIS TIME.
--- NOTE | 2021-02-25 21:45 | NUR ---
PT WAS TURNED, CHANGED AND REPOSITIONED IN BED. NEW BAG OF D5 HUNG. PT FINGERSTICK IS 108. V/S FOLLOWS; T 98.1 P 100 R 20 B/P 108/66 02 94% ON 10 LITERS HI FLOW N/C. TEXTED MD FIGUEROA REGARDING IF PT SHOULD RECEIVE HER LANTUS AND LOPRESSOR DUE TO LOW B/P AND LOW BLOOD GLUCOSE READING.
--- NOTE | 2021-02-25 23:12 | NUR ---
PER MD FIGUEROA OF TO GIVEN THE LANTUS HOLD THE LOPRESSOR.
[2021-02-26] VITALS: BP 116/53
--- NOTE | 2021-02-26 00:30 | NUR ---
PT REPOSITIONED HERSELF, SHE IS RESTING IN BED WITH NO C/O VOICED. 02 WENT DOWN TO 77 PERIODICALLY DUE TO SNORING. BUT THEN WENT BACK UP TO 96%. PT REMAINS ON 10 LITERS VIA HI FLOW N/C. OTHER V/S FOLLOWS: T 98.4 P 88 R 20 B/P 116/53. ALL ORDERED PRECAUTIONS IN PLACE.
[2021-02-26] MEDS: DEXTROSE 5% 1,000 ML IV SCH ×3 (01:49→19:47)
[2021-02-26 04:00] VITALS: BP 139/49
--- NOTE | 2021-02-26 04:30 | NUR ---
PT WAS TURNED, CHANGED AND REPOSITIONED IN BED. V/S FOLLOWS: T 98.5 P 96 R 20 B/P 139/ 49 LITERS VIA HI FLOW N/C. ALL ORDERED PRECAUTIONS IN PLACE.
--- NOTE | 2021-02-26 05:30 | NUR ---
PT WAS TURNED AND REPOSITIONED IN BED MORPHINE GTT CONTINUES AT 7MLS/HR RESPIRATIONS SHALLOW AND UNEVEN V/S FOLLOWS: T 96 P 59 R 10 B/P 45/24 COMFORT CARE CONTINUES.
--- NOTE | 2021-02-26 06:30 | NUR ---
FINGERSTICK DONE IS 72, NO HUMALOG COVERAGE NEEDED. BLOOD DRAWN TAKEN FORM PICC LINE.
--- NOTE | 2021-02-26 07:25 | NUR ---
RECEIVED BEDSIDE REPORT FROM AERONAUTICAL ENGINEERING TECHNOLOGIST NURSE FOR CONTINUITY OF CARE. PT IS RESTING ON 10L HIGH FLOW NC. BREATHING IS EVEN AND UNLABORED. NO S/S OF DISTRESS. PT IS STABLE.
--- NOTE | 2021-02-26 07:30 | NUR ---
LOVENOX WAS NOT VERIFIED AT ALL ON THE February IT JUST POPPED UP NOW ON THE EMAR ON 02/26 21 AT 0730 AM.
[2021-02-26 07:45] LABS: BASOPHILS # (AUTO) 0.1 K/uL (0.00-0.22); BASOPHILS % (AUTO) 0.5 % (0.0-2.0); EOSINOPHILS # (AUTO) 0.2 K/uL (0-0.4); EOSINOPHILS % (AUTO) 1.8 % (0.0-4.0); HEMATOCRIT 30.8 % (36-48); LYMPHOCYTES % (AUTO) 20.9 % (20.5-51.1); MEAN CORPUSCULAR HEMOGLOBIN 28 pg (27-31); MEAN CORPUSCULAR HGB CONC 33 g/dL (33-37); MEAN CORPUSCULAR VOLUME 87.2 fL (80-94); MONOCYTES # (AUTO) 0.6 K/uL (0.8-1.0); MONOCYTES % (AUTO) 6.6 % (1.7-9.3); NEUTROPHILS # (AUTO) 6.8 K/uL (1.8-7.7); NEUTROPHILS % (AUTO) 70.2 % (42.2-75.2); PLATELET COUNT (AUTO) 101 K/uL (140-450); RED BLOOD CELL COUNT(AUTO) 3.53 MIL/uL (4.20-5.40); RED CELL DISTRIBUTION WIDTH 14.1 % (11.6-13.7); WHITE BLOOD COUNT (AUTO) 9.7 K/uL (4.8-10.8)
[2021-02-26] MEDS: ALBUTEROL SULFATE/IPRATROPIU 3 ML SOL IH SCH ×3 (07:55→19:42)
--- NOTE | 2021-02-26 07:55 | NUR ---
RECEIVED ON SUPPLEMENTAL OXYGEN AT 10 LPM VIA HIGH FLOW BUBBLE HUMIDIFIER WITH A CURAPLEX NASAL CANNULA [employer] V60 (#[id number]) BIPAP TO MASK AT BEDSIDE RESTING WELL SKIN TONE PINK GOOD CHEST RISE SATURATION 95%-96% POST HHN THERAPY TITRATED FIO2 TO 8 LPM ALICIA/RN NOTIFIED
[2021-02-26 08:00] VITALS: BP 112/68
[2021-02-26] MEDS: metFORMIN 850 MG TAB PO SCH ×2 (08:00→17:39)
[2021-02-26] MEDS: BLOOD GLUCOSE MONITORING 1 DEV DEV FS SCH ×4 (08:12→21:44)
[2021-02-26 08:37] LABS: ANION GAP 9.7 (8-16); CARBON DIOXIDE 29.9 mmol/L (21-32); CHLORIDE 111 mmol/L (98-107); CREATININE 0.6 mg/dL (0.6-1.3); GLUCOSE 63 mg/dL (74-106); POTASSIUM 3.6 mmol/L (3.5-5.1); SODIUM SERUM 147 mmol/L (136-145); UREA NITROGEN, BLOOD 13 mg/dL (7-18)
[2021-02-26] MEDS ORDERED: ENOXAPARIN 80 MG/0.8 ML SYR SUBQ SCH (09:00)
[2021-02-26] MEDS ORDERED: LOVENOX 1MG/KG Q12H SUBQ SCH (09:00)
[2021-02-26] MEDS: INSULIN LANTUS 100 UNITS/ML 10 ML VIAL SUBQ SCH ×2 (09:00→21:42)
[2021-02-26] MEDS: LOSARTAN 50 MG TAB PO SCH (09:16)
[2021-02-26] MEDS: DEXAMETHASONE 4 MG/ML VIAL IVP SCH (09:16)
[2021-02-26] MEDS: METOPROLOL 25 MG TAB PO SCH ×2 (09:16→21:00)
[2021-02-26] MEDS: PANTOPRAZOLE 40 MG TABEC PO SCH (09:16)
[2021-02-26] MEDS: amLODIPine 5 MG TAB PO SCH (09:16)
[2021-02-26] MEDS: ZINC SULF 220 MG CAP PO SCH (09:22)
[2021-02-26] MEDS: ASCORBIC ACID 500 MG TAB PO SCH (09:22)
[2021-02-26 12:00] VITALS: BP 142/83
[2021-02-26] MEDS ORDERED: Z-GUARD PASTE TP ONE (15:07)
[2021-02-26] MEDS: BARICITINIB 2 MG PO SCH (15:31)
[2021-02-26 16:00] VITALS: BP 136/55
[2021-02-26] MEDS: INSULIN LISPRO SLIDING SCALE 100 UNITS/ML VIAL SUBQ PRN ×2 (17:58→21:43)
--- NOTE | 2021-02-26 19:36 | NUR ---
ENDORSED PT TO NIGHT AHIFT NURSE FOR CONTINUITY OF CARE.
[2021-02-26 20:00] VITALS: BP 108/52
--- NOTE | 2021-02-26 20:00 | NUR ---
RECEIVED REPORT FROM RN DAYSHIFT NURSE PT IS AOX4 SITTING UP IN BED SHE IS ON 8 LITERS VIA HI FLOW N/C AND HAS A RIGHT UPPER DOUBLE LUMEN PICC LINE RUNNING FLUIDS ORDERED. PT HAS NO C/O VOICED V/S FOLLOWS: T 97.8 P 111 R 32 B/P 108/52 02 92%. ALL ORDERED PRECAUTIONS IN PLACE.
--- NOTE | 2021-02-26 21:30 | NUR ---
PT RUNNING D5 AT 100MLS/HR WITH N/C AT 8 LITERS HI FLOW. PT WAS TURNED, CHANGED AND REPOSITED IN BED. SHE WAS GIVEN ORDERED SOLUMEDROL IVP WELL HEPARIN SQ. EDUCATION PROVIDED REGARDING PURPOSE OF ORDERED MEDICATION PT VERBALIZED UNDERSTANDING WITH REINFORCEMENT. LOPRESSOR HELD DUE TO DECREASED BLOOD PRESSURE (108/52). PT FINGERSTICK IS 180, PT GIVEN ORDERED LANTUS 20 UNITS WITH 2 UNITS OF HUMALOG COVERAGE. DIABETIC EDUCATION PROVIDED TO FAMILY OUTSIDE WELL PT THEY VERBALIZED UNDERSTANDING,. PT ENCOURAGED TO DRINK HER GLUCERNA SUPPLEMENT. ALL ORDERED PRECAUTIONS IN PLACE.
[2021-02-26] MEDS: methylPREDNISolone SS 40 MG/ML VIAL IVP SCH (21:43)
[2021-02-27] VITALS: BP 130/70
--- NOTE | 2021-02-27 | NUR ---
PT IN BED SHE WAS TURNED, CHANGED AND REPOSITIONED IN BED. HOB UP 45%, SHE REMAINS ON 8 LITERS VIA HI FLOW N/C.VS: T 97.9 P 108 R 32 B/P 130/70 02 91% ON 8 LITERS VIA N/C. ALL REQUESTED NEEDS ATTENDED BY STAFF AND ALL ORDERED PRECAUTIONS IN PLACE.
[2021-02-27 04:00] VITALS: BP 137/60
[2021-02-27] MEDS: methylPREDNISolone SS 40 MG/ML VIAL IVP SCH ×3 (05:29→20:57)
[2021-02-27] MEDS: DEXTROSE 5% 1,000 ML IV SCH ×2 (05:30→15:07)
--- NOTE | 2021-02-27 06:13 | NUR ---
PT WAS TURNED CHANGED AND REPOSITIONED IN BED .. PT RECEIVED ORDERED SOLUMEDROL FINGERSTICK IS 129, NO COVERAGE NEEDED LAB DRAWS FROM RIGHT UPPER PIC LINE. V/S FOLLOWS: YT 97.9 P 76 R 32 B/P 137/60. PT APPEARS MORE COMFORTABLE AND SAID THAT SHE IS OK ALL REQUESTED NEEDS ATTENDED AND ALL ORDERED PRECAUTIONS IN PLACE.
[2021-02-27 06:52] LABS: BASOPHILS % (AUTO) 0.3 % (0.0-2.0); HEMATOCRIT 30.4 % (36-48); HEMOGLOBIN 9.9 g/dL (12.0-16.0); LYMPHOCYTES # (AUTO) 0.6 K/uL (2.5-16.5); MEAN CORPUSCULAR HEMOGLOBIN 29 pg (27-31); MEAN CORPUSCULAR HGB CONC 33 g/dL (33-37); MONOCYTES # (AUTO) 0.3 K/uL (0.8-1.0); MONOCYTES % (AUTO) 3.3 % (1.7-9.3); NEUTROPHILS # (AUTO) 6.9 K/uL (1.8-7.7); NEUTROPHILS % (AUTO) 88.4 % (42.2-75.2); PLATELET COUNT (AUTO) 100 K/uL (140-450); RED CELL DISTRIBUTION WIDTH 14.4 % (11.6-13.7); WHITE BLOOD COUNT (AUTO) 7.8 K/uL (4.8-10.8)
[2021-02-27 07:20] LABS: ANION GAP 8.6 (8-16); CARBON DIOXIDE 30.6 mmol/L (21-32); CHLORIDE 107 mmol/L (98-107); CREATININE 0.7 mg/dL (0.6-1.3); GLUCOSE 138 mg/dL (74-106); POTASSIUM 4.2 mmol/L (3.5-5.1); SODIUM SERUM 142 mmol/L (136-145); UREA NITROGEN, BLOOD 13 mg/dL (7-18)
--- NOTE | 2021-02-27 07:25 | NUR ---
RECEIVED BEDSIDE REPORT FOR PATIENT, PT IS AWAKE, NO S/S OF DISTRESS. PT ON 8 LITERS NC SATING AT 93%. BREATHING IS EVEN AND UNLABORED. IVF D5 RUNNING AT 100 ML/HR. ALL SAFETY MEASURES IN PLACE. CALL LIGHT WITHIN REACH. SKIN INTACT, WITH SOME REDNESS IN PERINEAL AREA. PT IS STABLE.
[2021-02-27] MEDS: BLOOD GLUCOSE MONITORING 1 DEV DEV FS SCH ×4 (07:30→21:08)
[2021-02-27] MEDS: ALBUTEROL SULFATE/IPRATROPIU 3 ML SOL IH SCH ×3 (07:42→21:10)
--- NOTE | 2021-02-27 07:42 | NUR ---
RECEIVED ON SUPPLEMENTAL OXYGEN AT 8 LP VIA HIGH FLOW BUBBLE HUMIDIFIER WITH A CURAPLEX NASAL CANNULA POST HHN THERAPY TITRATED FIO2 TO 7 LPM QUARTER SEAMER TO NOTIFY RN [employer] V60 BIPAP TO MASK AT BEDSIDE
[2021-02-27 08:00] VITALS: BP 139/63
[2021-02-27] MEDS: metFORMIN 850 MG TAB PO SCH ×2 (08:00→17:10)
[2021-02-27] MEDS: LOSARTAN 50 MG TAB PO SCH (09:01)
[2021-02-27] MEDS: METOPROLOL 25 MG TAB PO SCH ×2 (09:01→21:08)
[2021-02-27] MEDS: ASCORBIC ACID 500 MG TAB PO SCH (09:02)
[2021-02-27] MEDS: INSULIN LANTUS 100 UNITS/ML 10 ML VIAL SUBQ SCH ×2 (09:02→21:04)
[2021-02-27] MEDS: ZINC SULF 220 MG CAP PO SCH (09:02)
[2021-02-27] MEDS: amLODIPine 5 MG TAB PO SCH (09:02)
[2021-02-27] MEDS: PANTOPRAZOLE 40 MG TABEC PO SCH (09:02)
--- NOTE | 2021-02-27 10:00 | NUR ---
PT IS AWAKE, NO S/S OF DISTRESS. 7L O2 NC, SATING AT 92%. BREATHING IS EVEN AND UNLABORED. IVF D5 RUNNING AT 100 ML/HR. ALL SAFETY MEASURES IN PLACE. CALL LIGHT WITHIN REACH. SKIN INTACT. PT IS STABLE.
[2021-02-27 12:00] VITALS: BP 141/59
--- NOTE | 2021-02-27 12:00 | NUR ---
PT IS AWAKE, NO S/S OF DISTRESS. 7L O2 NC, SATING AT 91%. BREATHING IS EVEN AND UNLABORED. IVF D5 RUNNING AT 100 ML/HR. ALL SAFETY MEASURES IN PLACE. CALL LIGHT WITHIN REACH. SKIN INTACT. PT IS STABLE.
--- NOTE | 2021-02-27 14:51 | NUR ---
02/27/21 RD FOLLOW UP COMPLETED PLEASE REFER TO NUTRITION ASSESSMENT UNDER CARE ACTIVITY FOR ESTIMATED NUTRITIONAL NEEDS. 1. CONTINUE CCHO 60 GM, MECHANICAL SOFT DIET TOLERATED 2. CONTINUE GLUCERNA CHOCOLATE TID PER PROTOCOL -PROVIDES 660 KCAL AND 30 GM PROTEIN DAILY 3. MONITOR BLOOD GLUCOSE LEVELS 4. RD TO FOLLOW-UP 3-5 DAYS, MODERATE RISK JAYLENE RODRIGUEZ RD
[2021-02-27] MEDS: BARICITINIB 2 MG PO SCH (15:06)
--- NOTE | 2021-02-27 15:06 | NUR ---
SATURATION 94% ON SUPPLEMENTAL OXYGEN AT 7 PROPULSION GENERATOR REPAIRER POST HHN THERAPY TITRATED FIO2 TO 6 LPM ALICIA/RN NOTIFIED
--- NOTE | 2021-02-27 15:15 | NUR ---
PT IS NOW AT 6L O2 NC TOLERATING WELL WITH 02 AT 92%
[2021-02-27 16:00] VITALS: BP 140/75
--- NOTE | 2021-02-27 17:00 | NUR ---
PT IS RESTING WITH BREATHING ON 6 L NC O2 AT 92%. BREATHING IS EVEN AND UNLABORED. NO S/S OF DISTRESS. PT IS STABLE.
[2021-02-27] MEDS: INSULIN LISPRO SLIDING SCALE 100 UNITS/ML VIAL SUBQ PRN ×2 (17:44→21:04)
--- NOTE | 2021-02-27 19:20 | NUR ---
ENDORSED TO SPEECH PATHOLOGY TEACHER NURSE FOR CONTINUITY OF CARE. POC DISCUSSED.
[2021-02-27 20:00] VITALS: BP 139/75
--- NOTE | 2021-02-27 20:00 | NUR ---
Patient received from AM shift nurse. Patient is AA&Ox4 able to make needs known with family visiting outside of the window. Patient denies chest pain or SOB. Chest rise is even and unlabored on 6L high-flow O2. Normal hear sounds present on tele monitoring. Active bowel sounds on auscultation and denies pain on abdominal palpation, no distension was noted. Patient has a JANES PICC that is patent has blood return, flushes, is infusing and has no s/s of erythema or inflammation. Patient has call light within reach, bed is locked, in the lowest position with bed rails up. Will continue to monitor throughout the shift.
--- NOTE | 2021-02-27 21:10 | NUR ---
RECEIVED PT ON 6LPM CURAPLEX NASAL CANNULA WITH BUBBLE HUMIDIFIER SATTING 96%. TOLERATED HHN TX WELL. BS REVEALED COARSE CRACKLES RIGHT SIDE CLEAR LEFT SIDE. NO DISTRESS NOTED AT THIS TIME WILL CONTINUE TO MONITOR.
[2021-02-28] VITALS: BP 142/67
--- NOTE | 2021-02-28 | NUR ---
ROUND: Patient is sleeping with family outside of the window. No s/s of distress at this time. Patient denies any pain or discomfort. Chest rise is even and unlabored. Call light is within reach, bed is locked, in the lowest position with bed rails up. Will continue to monitor.
[2021-02-28] MEDS ORDERED: MEROPENEM 1,000 MG VIAL IV ONE (00:58)
[2021-02-28] MEDS: DEXTROSE 5% 1,000 ML IV SCH ×3 (01:02→21:04)
[2021-02-28] MEDS: MEROPENEM 1,000 MG in NACL 0.9% 50 ML IV SCH ×4 (01:02→20:55)
[2021-02-28 04:00] VITALS: BP 120/41
[2021-02-28] MEDS: methylPREDNISolone SS 40 MG/ML VIAL IVP SCH ×3 (04:06→20:55)
[2021-02-28] MEDS ORDERED: MEROPENEM 1,000 MG in NACL 0.9% 50 ML IV SCH (05:00)
[2021-02-28] MEDS: BLOOD GLUCOSE MONITORING 1 DEV DEV FS SCH ×4 (06:34→20:55)
--- NOTE | 2021-02-28 06:44 | NUR ---
Patient is currently resting in bed and has no s/s of distress at this time. Denies chest pain and SOB. Chest rise is even and unlabored. All current needs have been met for the shift. Call light is within reach, bed is locked in the lowest position with bed rails up. Will differ further care to AM shift for continuity of care.
[2021-02-28 07:11] LABS: BASOPHILS % (AUTO) 0.3 % (0.0-2.0); HEMATOCRIT 31.4 % (36-48); HEMOGLOBIN 10.2 g/dL (12.0-16.0); LYMPHOCYTES # (AUTO) 0.5 K/uL (2.5-16.5); LYMPHOCYTES % (AUTO) 5.2 % (20.5-51.1); MEAN CORPUSCULAR HEMOGLOBIN 28 pg (27-31); MEAN CORPUSCULAR HGB CONC 33 g/dL (33-37); MEAN CORPUSCULAR VOLUME 87.1 fL (80-94); MONOCYTES # (AUTO) 0.5 K/uL (0.8-1.0); MONOCYTES % (AUTO) 5.2 % (1.7-9.3); NEUTROPHILS # (AUTO) 8.3 K/uL (1.8-7.7); NEUTROPHILS % (AUTO) 89.3 % (42.2-75.2); PLATELET COUNT (AUTO) 113 K/uL (140-450); RED BLOOD CELL COUNT(AUTO) 3.61 MIL/uL (4.20-5.40); RED CELL DISTRIBUTION WIDTH 14.4 % (11.6-13.7); WHITE BLOOD COUNT (AUTO) 9.3 K/uL (4.8-10.8)
--- NOTE | 2021-02-28 07:35 | NUR ---
RECEIVED BEDSIDE REPORT FOR PATIENT, PT IS AWAKE, NO S/S OF DISTRESS. PT ON 9 LITERS NC SATING AT 91%. BREATHING IS EVEN AND LIGHT LABORED. IVF D5 RUNNING AT 100 ML/HR. ALL SAFETY MEASURES IN PLACE. CALL LIGHT WITHIN REACH. SKIN INTACT, WITH SOME REDNESS IN PERINEAL AREA. PT IS STABLE.
[2021-02-28 07:40] LABS: ANION GAP 10.6 (8-16); CARBON DIOXIDE 29.7 mmol/L (21-32); CHLORIDE 108 mmol/L (98-107); CREATININE 0.8 mg/dL (0.6-1.3); GLUCOSE 102 mg/dL (74-106); POTASSIUM 4.3 mmol/L (3.5-5.1); SODIUM SERUM 144 mmol/L (136-145); UREA NITROGEN, BLOOD 14 mg/dL (7-18)
[2021-02-28] MEDS: ALBUTEROL SULFATE/IPRATROPIU 3 ML SOL IH SCH ×2 (07:59→14:50)
[2021-02-28 08:00] VITALS: BP 144/91
[2021-02-28] MEDS: metFORMIN 850 MG TAB PO SCH ×2 (08:00→17:00)
[2021-02-28] MEDS: ASCORBIC ACID 500 MG TAB PO SCH (09:10)
[2021-02-28] MEDS: PANTOPRAZOLE 40 MG TABEC PO SCH (09:10)
[2021-02-28] MEDS: LOSARTAN 50 MG TAB PO SCH (09:10)
[2021-02-28] MEDS: amLODIPine 5 MG TAB PO SCH (09:10)
[2021-02-28] MEDS: METOPROLOL 25 MG TAB PO SCH ×2 (09:10→21:03)
[2021-02-28] MEDS: INSULIN LANTUS 100 UNITS/ML 10 ML VIAL SUBQ SCH ×2 (09:11→20:59)
[2021-02-28] MEDS: ZINC SULF 220 MG CAP PO SCH (09:11)
--- NOTE | 2021-02-28 10:30 | NUR ---
O2 NC HIG FLOW WAS CHANGED TO 10L. , PT IS AWAKE, NO S/S OF DISTRESS. PT ON 10 LITERS NC SATING AT 89%. BREATHING IS EVEN AND UNLABORED. IVF D5 RUNNING AT 100 ML/HR. ALL SAFETY MEASURES IN PLACE. CALL LIGHT WITHIN REACH. SKIN INTACT, WITH SOME REDNESS IN PERINEAL AREA. PT IS STABLE.
[2021-02-28 12:00] VITALS: BP 151/85
--- NOTE | 2021-02-28 12:30 | NUR ---
PT IS AWAKE, NO S/S OF DISTRESS. PT ON 10 LITERS NC SATING AT 96%. BREATHING IS EVEN AND UNLABORED. IVF D5 RUNNING AT 100 ML/HR. ALL SAFETY MEASURES IN PLACE. CALL LIGHT WITHIN REACH. SKIN INTACT, WITH SOME REDNESS IN PERINEAL AREA. PT IS STABLE.
[2021-02-28] MEDS: INSULIN LISPRO SLIDING SCALE 100 UNITS/ML VIAL SUBQ PRN ×2 (12:59→20:58)
[2021-02-28 16:00] VITALS: BP 126/56
--- NOTE | 2021-02-28 16:00 | NUR ---
PT IS AWAKE, NO S/S OF DISTRESS. PT ON 10 LITERS NC SATING AT 94%. BREATHING IS EVEN AND UNLABORED. IVF D5 RUNNING AT 100 ML/HR. ALL SAFETY MEASURES IN PLACE. CALL LIGHT WITHIN REACH. SKIN INTACT, WITH SOME REDNESS IN PERINEAL AREA. PT IS STABLE.
--- NOTE | 2021-02-28 19:30 | NUR ---
ENDORSED PT TO STRIP CLEANER NURSE FOR CONTINUITY OF CARE. POC DISCUSSED.
[2021-02-28 20:00] VITALS: BP 136/63
--- NOTE | 2021-02-28 20:03 | NUR ---
Patient received from AM shift. Patient is AA&0x4 able to make needs known with family observing outside of the patient window. Patient denies any chest pain or SOB. Chest rise is even and unlabored on 10L high flow O2. Normal hear sounds present. Active bowel sounds x4 on auscultation. Patient is able to verbalize needs and has call light within reach. Bed is lockedin the lowest position with bed rails up. Will continue to monitor throughout the shift.
--- NOTE | 2021-02-28 20:26 | NUR ---
RECEIVED PT ON 6LPM CURAPLEX NASAL CANNULA WITH BUBBLE HUMIDIFIER SATTING 92%. TOLERATED HHN TX WELL. BS REVEALED CLEAR/DIMINISHED BILATERALLY. NO DISTRESS NOTED AT THIS TIME WILL CONTINUE TO MONITOR.
[2021-03-01] VITALS: BP 134/60
--- NOTE | 2021-03-01 00:45 | NUR ---
ROUNDS: Patient is currently resting no s/s of distress at this time. Chest rise is even and unlabored. Patient denies any pain at this time. Patient received all evening medication, and all evening interventions have been completed. Patient is verbalize needs and call light is within reach. Bed is locked, in the lowest position with bed rails up. Will Continue to monitor.
[2021-03-01 04:00] VITALS: BP 133/59
[2021-03-01] MEDS: methylPREDNISolone SS 40 MG/ML VIAL IVP SCH ×3 (04:24→21:26)
[2021-03-01] MEDS: BLOOD GLUCOSE MONITORING 1 DEV DEV FS SCH ×4 (06:40→21:00)
--- NOTE | 2021-03-01 06:48 | NUR ---
Patient is currently resting no s/s of distress is noted at this time. Bs was assessed this morning at 0600 and it was noted to be at 39 so interventions were applied. Patient was drowsy but followed command so PO interventions were applied. Patient was given apple sauce and juice with added sugar. BS was reassessed to be at 57 at 0615. After the nursing interventions that were applied the patient BS increased to 89 when reassessed at 0635. Patient is now stable and has call light within reach no other distress is noted and is fully oriented. All current needs have been met throughout the shift. Bed is locked in the lowest position with bed rails up. Will differ further care to AM shift nurse for continuity of care.
[2021-03-01 06:58] LABS: BASOPHILS % (AUTO) 0.1 % (0.0-2.0); HEMATOCRIT 29.2 % (36-48); HEMOGLOBIN 9.6 g/dL (12.0-16.0); LYMPHOCYTES # (AUTO) 0.3 K/uL (2.5-16.5); MEAN CORPUSCULAR HEMOGLOBIN 28 pg (27-31); MEAN CORPUSCULAR HGB CONC 33 g/dL (33-37); MEAN CORPUSCULAR VOLUME 86.6 fL (80-94); MONOCYTES # (AUTO) 0.5 K/uL (0.8-1.0); MONOCYTES % (AUTO) 6.4 % (1.7-9.3); NEUTROPHILS % (AUTO) 89.5 % (42.2-75.2); PLATELET COUNT (AUTO) 112 K/uL (140-450); RED BLOOD CELL COUNT(AUTO) 3.37 MIL/uL (4.20-5.40); RED CELL DISTRIBUTION WIDTH 14.3 % (11.6-13.7); WHITE BLOOD COUNT (AUTO) 7.8 K/uL (4.8-10.8)
[2021-03-01] MEDS: ALBUTEROL SULFATE/IPRATROPIU 3 ML SOL IH SCH ×3 (07:00→19:24)
--- NOTE | 2021-03-01 07:30 | NUR ---
RECEIVED BEDSIDE REPORT FROM SALES SERVICE ROUTE MANAGER NURSE FOR CONTINUITY OF CARE. PT IS AWAKE AND ALERT. A&OX4. ON 6L O2 NC WITH BREATHING UNLABORED. FAMILY AT THE WINDOW OBSERVING PT. INCONTINENT OF THE BOWEL AND BLADDER. SKIN IS WARM, DRY, AND INTACT. PICC [place] EIN THE RIGHT UPPER ARM RUNNING FLUIDS ORDERED.
[2021-03-01] MEDS: DEXTROSE 5% 1,000 ML IV SCH ×2 (07:47→16:49)
[2021-03-01 07:52] LABS: ANION GAP 11.2 (8-16); CARBON DIOXIDE 29.1 mmol/L (21-32); CHLORIDE 108 mmol/L (98-107); CREATININE 0.7 mg/dL (0.6-1.3); GLUCOSE 51 mg/dL (74-106); POTASSIUM 4.3 mmol/L (3.5-5.1); SODIUM SERUM 144 mmol/L (136-145); UREA NITROGEN, BLOOD 18 mg/dL (7-18)
[2021-03-01 08:00] VITALS: BP 163/80
[2021-03-01] MEDS: INSULIN LANTUS 100 UNITS/ML 10 ML VIAL SUBQ SCH ×2 (09:00→21:00)
[2021-03-01] MEDS: ZINC SULF 220 MG CAP PO SCH (09:06)
[2021-03-01] MEDS: ASCORBIC ACID 500 MG TAB PO SCH (09:07)
[2021-03-01] MEDS: METOPROLOL 25 MG TAB PO SCH ×2 (09:07→21:00)
[2021-03-01] MEDS: PANTOPRAZOLE 40 MG TABEC PO SCH (09:07)
[2021-03-01] MEDS: metFORMIN 850 MG TAB PO SCH ×2 (09:07→16:49)
[2021-03-01] MEDS: LOSARTAN 50 MG TAB PO SCH (09:07)
[2021-03-01] MEDS: MEROPENEM 1,000 MG in NACL 0.9% 50 ML IV SCH ×2 (09:08→21:26)
[2021-03-01] MEDS: amLODIPine 5 MG TAB PO SCH (09:08)
--- NOTE | 2021-03-01 09:29 | NUR ---
PT AWAKE AND ALERT, EATING, SPEAKING FULL SENTENCES, SPO2 94%, 7L NC, CLR BILATERALLY, NO TX INDICATED AT THIS TIME. WILL CONTINUE TO MONITOR AND TITRATE O2 WHEN INDICATED. RN AWARE.
--- NOTE | 2021-03-01 10:05 | NUR ---
RECHECKED BS AND THE READING IS 100. LANTUS WAS HELD FOR DECREASED BP. WILL CONTINUE TO MONITOR. PT IS EATING AT BEDSIDE, 75% OF BREAKFAST FINISHED.
[2021-03-01 12:00] VITALS: BP 155/91
--- NOTE | 2021-03-01 12:00 | NUR ---
PT IS AWAKE AND ALERT. SPEAKING APPROPRIATELY. NO SIGNS OF CONFUSION. ON 6L O2 NC WITH BREATHING LABORED. O2 SAT IS 96%. PT HAS A GOOD APPETITE FOR LUNCH. PT STABLE.
--- NOTE | 2021-03-01 14:00 | NUR ---
ROUNDED ON PT. O2 SAT IS 95% ON 6L O2 NC. NO DISTRESS NOTED. FAMILY IS AT THE WINDOW VISITING PT. PT STATES SHE IS FEELING BAD BUT GOOD AT THE SAME TIME. WILL CONTINUE TO MONITOR. CALL LIGHT WITHIN REACH.
--- NOTE | 2021-03-01 14:30 | NUR ---
PT AWAKE AND ALERT, 7L NC SPO2 94%, CLR BILATERALLY, NO TX GIVEN NOT INDICATED AT THIS TIME, WILL CONTINUE TO MONITOR.
[2021-03-01 16:00] VITALS: BP 126/70
--- NOTE | 2021-03-01 19:22 | NUR ---
ENDORSED PT TO FINANCIAL ANALYST ACCOUNTANT NURSE FOR CONTINUITY OF CARE. PT IS STABLE. O2 SAT IS 92%. PLAN OF CARE DISCUSSED.
--- NOTE | 2021-03-01 19:23 | NUR ---
RECEIVED REPORT FROM AM RN. PATIENT AWAKE, ALERT IN BED RESTING WITH O2 AT 6L NC SATING AT 92%. IVF D5 INFUSING AT 100 ML/HR. NO ACUTE DISTRESS NOTED. BREATHING REGULAR UNLABORED. ABLE TO COMMUNICATE WITH HER NEEDS. SAFETY MEASURES IN PLACE. CALL LIGHT WITHIN REACH. WILL CONTINUE TO MONITOR PT.
[2021-03-01 20:00] VITALS: BP 128/75
--- NOTE | 2021-03-01 21:26 | NUR ---
ADMINISTERED ALL 2100 SCHEDULED MEDICATIONS PER MD ORDERED. TOLERATED WELL.
[2021-03-01] MEDS: INSULIN LISPRO SLIDING SCALE 100 UNITS/ML VIAL SUBQ PRN (22:03)
--- NOTE | 2021-03-01 22:03 | NUR ---
BLOOD SUGAR WAS 213 HUMALOG INSULIN ADMINISTERED ORDERED PER SLIDING SCALE.
[2021-03-02] VITALS: BP 136/76
[2021-03-02] MEDS: DEXTROSE 5% 1,000 ML IV SCH ×3 (03:47→23:47)
[2021-03-02 04:00] VITALS: BP 165/83
[2021-03-02] MEDS: methylPREDNISolone SS 40 MG/ML VIAL IVP SCH ×3 (05:17→21:42)
[2021-03-02] MEDS: BLOOD GLUCOSE MONITORING 1 DEV DEV FS SCH ×4 (06:38→21:00)
--- NOTE | 2021-03-02 07:31 | NUR ---
RECEIVED BEDSIDE REPORT FROM DOG HAIR CLIPPER NURSE FOR CONTINUITY OF CARE. PT IS AWAKE AND ALERT. ON 6L O2 NC WITH BREATHING UNLABORED. O2 SAT IS 94%. PT IS INCONTINENT OF THE BOWEL AND BLADDER. SKIN IS WARM, DRY, AND INTACT. PICC LINE IN THE RIGHT UPPER ARM RUNNING FLUIDS ORDERED. PT IS STABLE. PLAN OF CARE DISCUSSED.
--- NOTE | 2021-03-02 07:31 | NUR ---
ENDORSED TO AM RN FOR CONTINUITY OF CARE. PATIENT STABLE.
--- NOTE | 2021-03-02 07:36 | NUR ---
PHYSICAL THERAPY CO-SIGN The Physical Therapy Progress Notes documented by Compensation Business Partner have been reviewed. Reviewed/Co-Signed by: Orin Mix Documentation Done by: NETTA BRUMFIELD PTA Addendum: 03/02/21 at 0736 by rOin Mix PT Amended: Links added.
[2021-03-02] MEDS: ALBUTEROL SULFATE/IPRATROPIU 3 ML SOL IH SCH ×3 (07:43→20:29)
[2021-03-02 07:48] LABS: BASOPHILS % (AUTO) 0.5 % (0.0-2.0); HEMATOCRIT 30.6 % (36-48); HEMOGLOBIN 10.2 g/dL (12.0-16.0); LYMPHOCYTES # (AUTO) 0.5 K/uL (2.5-16.5); LYMPHOCYTES % (AUTO) 6.2 % (20.5-51.1); MEAN CORPUSCULAR HEMOGLOBIN 29 pg (27-31); MEAN CORPUSCULAR HGB CONC 33 g/dL (33-37); MEAN CORPUSCULAR VOLUME 86.4 fL (80-94); MONOCYTES # (AUTO) 0.4 K/uL (0.8-1.0); MONOCYTES % (AUTO) 4.4 % (1.7-9.3); NEUTROPHILS # (AUTO) 7.8 K/uL (1.8-7.7); NEUTROPHILS % (AUTO) 88.9 % (42.2-75.2); PLATELET COUNT (AUTO) 126 K/uL (140-450); RED BLOOD CELL COUNT(AUTO) 3.54 MIL/uL (4.20-5.40); RED CELL DISTRIBUTION WIDTH 14.3 % (11.6-13.7); WHITE BLOOD COUNT (AUTO) 8.8 K/uL (4.8-10.8)
[2021-03-02 08:00] VITALS: BP 172/80
[2021-03-02 08:10] LABS: ANION GAP 10.8 (8-16); CARBON DIOXIDE 29.9 mmol/L (21-32); CHLORIDE 105 mmol/L (98-107); CREATININE 0.7 mg/dL (0.6-1.3); GLUCOSE 141 mg/dL (74-106); POTASSIUM 4.7 mmol/L (3.5-5.1); SODIUM SERUM 141 mmol/L (136-145); UREA NITROGEN, BLOOD 21 mg/dL (7-18)
[2021-03-02] MEDS: METOPROLOL 25 MG TAB PO SCH ×2 (08:54→21:48)
[2021-03-02] MEDS: metFORMIN 850 MG TAB PO SCH ×2 (08:54→17:14)
[2021-03-02] MEDS: ASCORBIC ACID 500 MG TAB PO SCH (08:55)
[2021-03-02] MEDS: LOSARTAN 50 MG TAB PO SCH (08:55)
[2021-03-02] MEDS: amLODIPine 5 MG TAB PO SCH (08:55)
[2021-03-02] MEDS: MEROPENEM 1,000 MG in NACL 0.9% 50 ML IV SCH ×2 (08:56→21:41)
[2021-03-02] MEDS: ZINC SULF 220 MG CAP PO SCH (08:56)
[2021-03-02] MEDS: PANTOPRAZOLE 40 MG TABEC PO SCH (08:56)
--- NOTE | 2021-03-02 09:30 | NUR ---
PT IS AWAKE AND ALERT. RESPONDS TO QUESTIONS APPROPRIATELY. ON 6L O2 NC WITH BREATHING LABORED. O2 SAT IS 92%. WILL CONTINUE TO MONITOR.
[2021-03-02] MEDS: INSULIN LANTUS 100 UNITS/ML 10 ML VIAL SUBQ SCH ×2 (09:32→21:00)
--- NOTE | 2021-03-02 11:30 | NUR ---
ROUNDED ON PT. SHE IS AWAKE AND BREATHING IS UNLABORED. O2 SAT IS 92% ON 6L O2 NC. PT WAS REPOSITIONED. PT DESATED TO 83%. AFTER FIVE MINUTES OF MONITORING PT RETURNED BACK TO 93%. WILL CONTINUE TO MONITOR.
[2021-03-02 12:00] VITALS: BP 119/60
[2021-03-02] MEDS: INSULIN LISPRO SLIDING SCALE 100 UNITS/ML VIAL SUBQ PRN ×3 (13:21→22:09)
--- NOTE | 2021-03-02 13:21 | NUR ---
PT WAS GIVEN 6 UNITS HUMALOG INSULIN FOR BS READING OF 281.
--- NOTE | 2021-03-02 15:00 | NUR ---
PHYSICAL THERAPIST WORKING WITH PT. PT WAS ABLE TO SIT AT THE EDGE OF THE BED FOR TWENTY MIN. O2 SAT DECREASED TO 85% WHILE SITTING AT THE EDGE OF THE BED. PT TOLERATED THIS FAIRLY. ATTEMPTED TO STAND AND PT STATED SHE FELT WEAK AND NEEDED TO SIT BACK DOWN. PT BACK IN BED. O2 SAT IS 91% ON 6L O2 NC.
[2021-03-02 16:00] VITALS: BP 127/70
--- NOTE | 2021-03-02 17:17 | NUR ---
PT WAS GIVEN 2 UNITS HUMALOG INSULIN FOR BS READING OF 236.
--- NOTE | 2021-03-02 19:07 | NUR ---
ENDORSED REPORT TO COMMUNITY AFFAIRS MANAGER NURSE FOR CONTINUITY OF CARE. PT IS STABLE. PLAN OF CARE DISCUSSED.
--- NOTE | 2021-03-02 19:08 | NUR ---
RECEIVED REPORT FROM AM NURSE. PATIENT AWAKE WELL RESTED IN HIGH FOWLERS POSITION WITH O2 AT 6L NC. NO SOB NOTED. BREATHING REGULAR UNLABORED. IVF D5 AT 100 MLS/HR. CALL LIGHT WITHIN REACH. SAFETY PRECAUTIONS IN PLACE. WILL CONTINUE TO MONITOR.
[2021-03-02 20:00] VITALS: BP 143/98
--- NOTE | 2021-03-02 21:30 | NUR ---
PATIENT IS KEPT CLEAN, DRY AND COMFORTABLE.
--- NOTE | 2021-03-02 21:42 | NUR ---
ALL SCHEDULED MEDICATIONS ADMINISTERED PER MD ORDERED.
[2021-03-03] VITALS: BP 145/68
--- NOTE | 2021-03-03 02:40 | NUR ---
PATIENT IS SLEEPING. CHEST RISE AND FALL. NO DISTRESS NOTED. CALL LIGHT WITHIN REACH.
[2021-03-03 04:00] VITALS: BP 131/59
[2021-03-03] MEDS: methylPREDNISolone SS 40 MG/ML VIAL IVP SCH ×3 (05:08→21:57)
[2021-03-03] MEDS: BLOOD GLUCOSE MONITORING 1 DEV DEV FS SCH ×4 (06:33→21:00)
[2021-03-03] MEDS: INSULIN LISPRO SLIDING SCALE 100 UNITS/ML VIAL SUBQ PRN ×4 (06:34→22:27)
--- NOTE | 2021-03-03 07:25 | NUR ---
ENDORSED PATIENT TO AM RN FOR CONTINUITY OF CARE.
[2021-03-03] MEDS: ALBUTEROL SULFATE/IPRATROPIU 3 ML SOL IH SCH ×3 (07:29→20:20)
[2021-03-03 08:00] VITALS: BP 135/64
[2021-03-03] MEDS: metFORMIN 850 MG TAB PO SCH ×2 (08:10→17:25)
[2021-03-03] MEDS: MEROPENEM 1,000 MG in NACL 0.9% 50 ML IV SCH ×2 (08:10→21:57)
[2021-03-03] MEDS: LOSARTAN 50 MG TAB PO SCH (08:11)
[2021-03-03] MEDS: amLODIPine 5 MG TAB PO SCH (08:12)
[2021-03-03] MEDS: ZINC SULF 220 MG CAP PO SCH (08:12)
[2021-03-03] MEDS: METOPROLOL 25 MG TAB PO SCH ×2 (08:12→21:58)
[2021-03-03] MEDS: ASCORBIC ACID 500 MG TAB PO SCH (08:13)
[2021-03-03] MEDS: PANTOPRAZOLE 40 MG TABEC PO SCH (08:13)
[2021-03-03] MEDS: INSULIN LANTUS 100 UNITS/ML 10 ML VIAL SUBQ SCH ×2 (08:16→21:00)
--- NOTE | 2021-03-03 08:42 | NUR ---
MEDICATIONS GIVEN PER MD ORDER, PT EDUCATED AND VERBALIZED UNDERSTANDING , DAUGHTER AT WINDOW. PATINT 02 SATURATION 82% PLACED ON 10 L. AT 86-88% RT CALLED
--- NOTE | 2021-03-03 10:25 | NUR ---
PATIENT CHANGED REPOSITIONED , ALL SAFETY MEASURES ARE IN PLACE
--- NOTE | 2021-03-03 11:07 | NUR ---
(03/03/21) RD FOLLOW UP COMPLETED PLEASE REFER TO NUTRITION PROGRESS NOTE UNDER CARE ACTIVITY FOR ESTIMATED NUTRITION NEEDS. RD RECOMMENDATIONS: 1. CONTINUE CCHO 60 GM, MECHANICAL SOFT DIET TOLERATED 2. CONTINUE GLUCERNA CHOCOLATE TID PER PROTOCOL -PROVIDES 660 KCAL AND 30 GM PROTEIN DAILY 3. MONITOR BLOOD GLUCOSE LEVELS 4. RD TO FOLLOW-UP 3-5 DAYS, MODERATE RISK BRYCE FOX MS, RDN
[2021-03-03 11:15] LABS: HEMATOCRIT 29.6 % (36-48); HEMOGLOBIN 9.7 g/dL (12.0-16.0); LYMPHOCYTES # (AUTO) 0.3 K/uL (2.5-16.5); LYMPHOCYTES % (AUTO) 3.5 % (20.5-51.1); MEAN CORPUSCULAR HEMOGLOBIN 29 pg (27-31); MEAN CORPUSCULAR HGB CONC 33 g/dL (33-37); MEAN CORPUSCULAR VOLUME 86.9 fL (80-94); MONOCYTES # (AUTO) 0.4 K/uL (0.8-1.0); MONOCYTES % (AUTO) 4.8 % (1.7-9.3); NEUTROPHILS # (AUTO) 7.9 K/uL (1.8-7.7); NEUTROPHILS % (AUTO) 91.7 % (42.2-75.2); PLATELET COUNT (AUTO) 119 K/uL (140-450); RED CELL DISTRIBUTION WIDTH 14.4 % (11.6-13.7); WHITE BLOOD COUNT (AUTO) 8.6 K/uL (4.8-10.8)
[2021-03-03 11:46] LABS: CARBON DIOXIDE 26.4 mmol/L (21-32); CHLORIDE 107 mmol/L (98-107); CREATININE 0.8 mg/dL (0.6-1.3); GLUCOSE 250 mg/dL (74-106); POTASSIUM 4.4 mmol/L (3.5-5.1); SODIUM SERUM 141 mmol/L (136-145); UREA NITROGEN, BLOOD 21 mg/dL (7-18)
[2021-03-03 12:00] VITALS: BP 165/81
[2021-03-03] MEDS: DEXTROSE 5% 1,000 ML IV SCH ×2 (13:16→19:47)
--- NOTE | 2021-03-03 13:25 | NUR ---
PATIENT REPOSITIONED AND PULLED UP , ALL SAFETY MEASURES ARE IN PLACE.
--- NOTE | 2021-03-03 16:25 | NUR ---
BG ASSESSED PT 162 , PRN MEDICATIONA ND PRESCRIBED MEDICATIONS GIVEN AT THIS TIME .
[2021-03-03 18:00] VITALS: BP 147/73
--- NOTE | 2021-03-03 18:55 | NUR ---
PATIENT RESTING IN BED HAVING DINNER ALL SAFETY MEASURES ARE IN PLACE.
--- NOTE | 2021-03-03 19:30 | NUR ---
PATIENT ENDORSED TO STEWARD/STEWARDESS LOUNGE
[2021-03-03 20:00] VITALS: BP 143/58
--- NOTE | 2021-03-03 21:57 | NUR ---
ALL SCHEDULED MEDICATIONS ADMINISTERED ORDERED.
--- NOTE | 2021-03-03 22:27 | NUR ---
BLOOD SUGAR CHECKED WAS 222, INSULIN HUMALOG GIVEN ORDERED PER SLIDING SCALE.
[2021-03-04] VITALS: BP 142/82
--- NOTE | 2021-03-04 01:48 | NUR ---
PATIENT IS SLEEPING. RESPIRATIONS EVEN UNLABORED. ALL SAFETY PRECAUTIONS ARE IN PLACE. CALL LIGHT WITHIN REACH.
[2021-03-04 04:00] VITALS: BP 155/76
[2021-03-04] MEDS: methylPREDNISolone SS 40 MG/ML VIAL IVP SCH ×3 (05:23→21:00)
[2021-03-04] MEDS: DEXTROSE 5% 1,000 ML IV SCH ×2 (05:47→16:12)
[2021-03-04] MEDS: BLOOD GLUCOSE MONITORING 1 DEV DEV FS SCH ×4 (07:01→21:00)
--- NOTE | 2021-03-04 07:21 | NUR ---
ENDORSED PATIENT TO AM NURSE FOR CONTINUITY OF CARE.
--- NOTE | 2021-03-04 07:21 | NUR ---
RECEIVED REPORT FROM PARTS ANALYST NURSE FOR CONTINUITY OF CARE, POC DISCUSSED. PT IS IN BED WATCHING TV WITH CHEST RISING AND FALLING EVEN AND UNLABORED. REPORTED PT IS ON 6L NC. ON TELE MONITOR. ALL SAFETY MEASURES IN PLACE, CALL LIGHT WITHIN REACH. WILL CONTINUE TO MONITOR.
[2021-03-04 08:00] VITALS: BP 167/94
[2021-03-04] MEDS: ALBUTEROL SULFATE/IPRATROPIU 3 ML SOL IH SCH ×3 (08:10→20:49)
[2021-03-04] MEDS: MEROPENEM 1,000 MG in NACL 0.9% 50 ML IV SCH ×2 (09:43→21:00)
[2021-03-04] MEDS: LOSARTAN 50 MG TAB PO SCH (09:43)
[2021-03-04] MEDS: metFORMIN 850 MG TAB PO SCH ×2 (09:43→17:22)
[2021-03-04] MEDS: amLODIPine 5 MG TAB PO SCH (09:43)
[2021-03-04] MEDS: PANTOPRAZOLE 40 MG TABEC PO SCH (09:43)
[2021-03-04] MEDS: INSULIN LANTUS 100 UNITS/ML 10 ML VIAL SUBQ SCH ×2 (09:43→21:00)
[2021-03-04] MEDS: ASCORBIC ACID 500 MG TAB PO SCH (09:44)
[2021-03-04] MEDS: ZINC SULF 220 MG CAP PO SCH (09:44)
[2021-03-04] MEDS: METOPROLOL 25 MG TAB PO SCH ×2 (09:44→21:00)
[2021-03-04 12:00] VITALS: BP 126/56
[2021-03-04] MEDS: INSULIN LISPRO SLIDING SCALE 100 UNITS/ML VIAL SUBQ PRN ×2 (12:49→17:34)
[2021-03-04 13:41] LABS: BASOPHILS % (AUTO) 0.4 % (0.0-2.0); HEMATOCRIT 31.5 % (36-48); HEMOGLOBIN 10.3 g/dL (12.0-16.0); LYMPHOCYTES # (AUTO) 0.4 K/uL (2.5-16.5); LYMPHOCYTES % (AUTO) 3.9 % (20.5-51.1); MEAN CORPUSCULAR HEMOGLOBIN 28 pg (27-31); MEAN CORPUSCULAR HGB CONC 33 g/dL (33-37); MEAN CORPUSCULAR VOLUME 86.7 fL (80-94); MONOCYTES # (AUTO) 0.4 K/uL (0.8-1.0); MONOCYTES % (AUTO) 3.9 % (1.7-9.3); NEUTROPHILS # (AUTO) 8.3 K/uL (1.8-7.7); NEUTROPHILS % (AUTO) 91.8 % (42.2-75.2); PLATELET COUNT (AUTO) 128 K/uL (140-450); RED BLOOD CELL COUNT(AUTO) 3.64 MIL/uL (4.20-5.40); RED CELL DISTRIBUTION WIDTH 14.6 % (11.6-13.7)
[2021-03-04 14:01] LABS: ANION GAP 12.9 (8-16); CARBON DIOXIDE 29.4 mmol/L (21-32); CHLORIDE 101 mmol/L (98-107); CREATININE 0.8 mg/dL (0.6-1.3); GLUCOSE 341 mg/dL (74-106); POTASSIUM 4.3 mmol/L (3.5-5.1); SODIUM SERUM 139 mmol/L (136-145); UREA NITROGEN, BLOOD 26 mg/dL (7-18)
[2021-03-04 16:00] VITALS: BP 134/82
--- NOTE | 2021-03-04 18:51 | NUR ---
ALL NEEDS HAVE BEEN MET THROUGHOUT SHIFT, PT REMAINED STABLE. ALL SAFETY MEASURES IN PLACE, CALL LIGHT WITHIN REACH. PT WILL BE ENDORSED TO PATIENT ACCESS DIRECTOR NURSE FOR CONTINUITY OF CARE.
--- NOTE | 2021-03-04 20:49 | NUR ---
PT PRESENTS LAYING IN BED WITH NO SIGNS OF RESPIRATORY DISTRESS SATING 96% ON HFNC 20LPM 80% FIO2 33 DEGREES CELSIUS. TX WAS TOLERATED WELL WITH IMPROVED AERATION. WILL CONTINUE TO MONITOR.
[2021-03-05 00:57] VITALS: BP 131/78
[2021-03-05] MEDS: DEXTROSE 5% 1,000 ML IV SCH ×2 (01:47→12:15)
[2021-03-05 04:35] VITALS: BP 129/75
[2021-03-05] MEDS: methylPREDNISolone SS 40 MG/ML VIAL IVP SCH ×3 (05:16→21:05)
[2021-03-05 06:33] LABS: EOSINOPHILS % (AUTO) 0.1 % (0.0-4.0); HEMATOCRIT 29.8 % (36-48); HEMOGLOBIN 9.9 g/dL (12.0-16.0); LYMPHOCYTES # (AUTO) 0.5 K/uL (2.5-16.5); LYMPHOCYTES % (AUTO) 4.7 % (20.5-51.1); MEAN CORPUSCULAR HEMOGLOBIN 29 pg (27-31); MEAN CORPUSCULAR HGB CONC 33 g/dL (33-37); MEAN CORPUSCULAR VOLUME 86.6 fL (80-94); MONOCYTES # (AUTO) 0.6 K/uL (0.8-1.0); NEUTROPHILS # (AUTO) 9.2 K/uL (1.8-7.7); NEUTROPHILS % (AUTO) 89.2 % (42.2-75.2); PLATELET COUNT (AUTO) 111 K/uL (140-450); RED BLOOD CELL COUNT(AUTO) 3.44 MIL/uL (4.20-5.40); RED CELL DISTRIBUTION WIDTH 14.7 % (11.6-13.7); WHITE BLOOD COUNT (AUTO) 10.3 K/uL (4.8-10.8)
[2021-03-05] MEDS: BLOOD GLUCOSE MONITORING 1 DEV DEV FS SCH ×4 (06:47→21:06)
[2021-03-05 07:05] LABS: ALBUMIN 2.2 g/dL (3.4-5.0); ASPARTATE AMINOTRANSFERASE 29 U/L (15-37); CARBON DIOXIDE 27.6 mmol/L (21-32); CHLORIDE 105 mmol/L (98-107); CREATININE 0.7 mg/dL (0.6-1.3); GLUCOSE 112 mg/dL (74-106); MAGNESIUM 1.8 mg/dL (1.8-2.4); PHOSPHORUS 3.1 mg/dL (2.5-4.9); POTASSIUM 4.6 mmol/L (3.5-5.1); SODIUM SERUM 140 mmol/L (136-145); TOTAL BILIRUBIN 0.4 mg/dL (0.0-1.0); UREA NITROGEN, BLOOD 28 mg/dL (7-18)
--- NOTE | 2021-03-05 07:30 | NUR ---
RECEIVED PT CARE AND REPORT FROM [facility] NURSE. PATIENT IS SITTING HIGH FOWLERS, EATING BREAKFAST. FAMILY OUTSIDE OF WINDOW. PT APPEARS CALM. NO S/S OF DISTRESS OR DISCOMFORT. DENIES ANY PAIN OR SOB. PICC LINE INTACT WITHOUT REDNESS OR PAIN. CALL LIGHT WITHIN REACH. ALL NEEDS HAVE BEEN MET AT THIS TIME.
[2021-03-05] MEDS: ALBUTEROL SULFATE/IPRATROPIU 3 ML SOL IH SCH ×3 (07:38→19:40)
[2021-03-05 08:00] VITALS: BP 136/63
[2021-03-05] MEDS: ASCORBIC ACID 500 MG TAB PO SCH (09:14)
[2021-03-05] MEDS: MEROPENEM 1,000 MG in NACL 0.9% 50 ML IV SCH ×2 (09:14→21:05)
[2021-03-05] MEDS: amLODIPine 5 MG TAB PO SCH (09:15)
[2021-03-05] MEDS: ZINC SULF 220 MG CAP PO SCH (09:15)
[2021-03-05] MEDS: metFORMIN 850 MG TAB PO SCH ×2 (09:16→18:08)
[2021-03-05] MEDS: PANTOPRAZOLE 40 MG TABEC PO SCH (09:16)
[2021-03-05] MEDS: METOPROLOL 25 MG TAB PO SCH ×2 (09:16→21:05)
[2021-03-05] MEDS: LOSARTAN 50 MG TAB PO SCH (09:16)
--- NOTE | 2021-03-05 09:26 | NUR ---
PHYSICAL THERAPY CO-SIGN The Physical Therapy Progress Notes documented by Director Of Enterprise Strategy have been reviewed. Reviewed/Co-Signed by: Orin Mix Documentation Done by: NETTA BRUMFIELD PTA Addendum: 03/05/21 at 4506 by Orin Mix PT Amended: Links added.
[2021-03-05] MEDS: INSULIN LANTUS 100 UNITS/ML 10 ML VIAL SUBQ SCH ×2 (09:29→21:10)
[2021-03-05 12:00] VITALS: BP 126/57
[2021-03-05] MEDS: INSULIN LISPRO SLIDING SCALE 100 UNITS/ML VIAL SUBQ PRN ×2 (12:37→20:45)
[2021-03-05 16:00] VITALS: BP 131/62
--- NOTE | 2021-03-05 16:15 | NUR ---
PHYSICAL THERAPY CO-SIGN The Physical Therapy Progress Notes documented by Director Of Career Resources have been reviewed. Reviewed/Co-Signed by: Orin Mix Documentation Done by: NETTA BRUMFIELD PTA Addendum: 03/05/21 at 1615 by Orin Mix PT Amended: Links added.
--- NOTE | 2021-03-05 18:34 | NUR ---
PATIENT RESTING IN BED ON LEFT SIDE WITH EYES CLOSED. FAMILY AT WINDOW.O VISIBLE S/S OF DISTRESS, DISCOMFORT, PAIN OR SOB. CALL LIGHT WITHIN REACH. ALL NEEDS HAVE BEEN MET AT THIS TIME. WILL ENDORSE TO NOC NURSE.
--- NOTE | 2021-03-05 19:40 | NUR ---
PT PRESENTS LAYING IN BED WITH NO SIGNS OF RESPIRATORY DISTRESS SATING 100% ON HFNC 20LPM 60% FIO2 33 DEGREES CELSIUS. TX WAS TOLERATED WELL WITH IMPROVED AERATION. WILL CONTINUE TO MONITOR.
[2021-03-05 20:00] VITALS: BP 152/86
--- NOTE | 2021-03-05 20:00 | NUR ---
RECEIVED REPORT FROM RN DAYSHIFT NURSE [facility] BEDSIDE FOR CONTINUITY OF CARE, PT SITTING UP IN BED AOX3-4 SHE IS ON 20 L HI FLOW N/C FI02 AT 60%. SHE HAS A RIGHT UPPER PICC LINE RUNNING D5 AT 100MLS/HR. FINGERSTICKS 162. PT REPOSITIONED IN BED REQUESTED V/S FOLLOWS: T 98.1 P 99 R 30 B/P 152/86 02 100% ON ALL SUPPLEMENTAL 02. ALL ORDERED PRECAUTIONS IN PLACE.
--- NOTE | 2021-03-05 21:00 | NUR ---
PT GIVEN 2 UNITS OF HUMALOG S/S COVERAGE. SHE ALSO RECEIVED ORDERED MERREM IV ABT LOPRESSOR AND IVP SOLUMEDROL. WELL HEPARIN SQ. EDUCATION PROVIDED AT BEDSIDE, REINFORCEMENT NEED, PT VERBALIZED UNDERSTANDING. ALL ORDERED PRECAUTIONS IN PLACE.
--- NOTE | 2021-03-05 23:18 | NUR ---
PT PRESENTS LAYING IN BED WITH NO SIGNS OF RESPIRATORY DISTRESS SATING 96% ON HFNC. TITRATED TO 15LPM AT 50% FIO2 AT THIS TIME NOTIFIED RN. PT TOLERATED WELL SATING 95% WILL CONTINUE TO MONITOR.
[2021-03-06] VITALS: BP 142/82
--- NOTE | 2021-03-06 | NUR ---
PT SITTING UP IN BED RESTING WITH EYES CLOSED . 02 TITRATED PER RT. V/S FOLLOWS: T 99.0 P 105 R 30 B/P 142/82 02 100% ON ALL SUPPLEMENTAL 02. ALL ORDERED PRECAUTIONS IN PLACE.
[2021-03-06] MEDS: DEXTROSE 5% 1,000 ML IV SCH ×3 (01:06→17:45)
[2021-03-06 04:00] VITALS: BP 152/74
[2021-03-06] MEDS: methylPREDNISolone SS 40 MG/ML VIAL IVP SCH ×3 (05:00→22:51)
--- NOTE | 2021-03-06 05:30 | NUR ---
PT FINGERSTICK IS 84 NO HUMALOG COVERAGE NEEDED. DUE IV PUSH SOLUMEDROL GIVEN. ORDERED.
[2021-03-06] MEDS: BLOOD GLUCOSE MONITORING 1 DEV DEV FS SCH ×4 (06:25→21:00)
[2021-03-06 06:28] LABS: BASOPHILS # (AUTO) 0.1 K/uL (0.00-0.22); BASOPHILS % (AUTO) 0.6 % (0.0-2.0); EOSINOPHILS # (AUTO) 0.3 K/uL (0-0.4); EOSINOPHILS % (AUTO) 2.5 % (0.0-4.0); HEMATOCRIT 32.6 % (36-48); HEMOGLOBIN 10.9 g/dL (12.0-16.0); LYMPHOCYTES # (AUTO) 0.7 K/uL (2.5-16.5); LYMPHOCYTES % (AUTO) 5.8 % (20.5-51.1); MEAN CORPUSCULAR HEMOGLOBIN 29 pg (27-31); MEAN CORPUSCULAR HGB CONC 33 g/dL (33-37); MEAN CORPUSCULAR VOLUME 87.4 fL (80-94); MONOCYTES # (AUTO) 0.5 K/uL (0.8-1.0); MONOCYTES % (AUTO) 4.6 % (1.7-9.3); NEUTROPHILS # (AUTO) 9.8 K/uL (1.8-7.7); NEUTROPHILS % (AUTO) 86.5 % (42.2-75.2); PLATELET COUNT (AUTO) 165 K/uL (140-450); RED BLOOD CELL COUNT(AUTO) 3.73 MIL/uL (4.20-5.40); WHITE BLOOD COUNT (AUTO) 11.4 K/uL (4.8-10.8)
--- NOTE | 2021-03-06 07:25 | NUR ---
RECEIVED BEDSIDE REPORT FROM FIBERGLASS MACHINE OPERATOR NURSE FOR CONTINUITY OF CARE. PT IS AWAKE AND ALERT. A&OX4. ON HIGH FLOW AT 50% FIO2. PT IS INCONTINENT OF THE BOWEL AND BLADDER. SKIN IS WARM, DRY, AND INTACT. UPPER ARM PICC LINE IN PLACE INFUSING FLUIDS ORDERED. PT IS STABLE. PLAN OF CARE DISCUSSED. Addendum: 03/06/21 at 0809 by Raiza Dumont RN BREATHING IS UNLABORED AND O2 SAT IS 90%.
[2021-03-06 08:00] VITALS: BP 172/81
[2021-03-06] MEDS: ALBUTEROL SULFATE/IPRATROPIU 3 ML SOL IH SCH ×3 (08:06→20:25)
[2021-03-06] MEDS: ZINC SULF 220 MG CAP PO SCH (08:41)
[2021-03-06] MEDS: PANTOPRAZOLE 40 MG TABEC PO SCH (08:41)
[2021-03-06] MEDS: metFORMIN 850 MG TAB PO SCH ×2 (08:42→17:31)
[2021-03-06] MEDS: amLODIPine 5 MG TAB PO SCH (08:42)
[2021-03-06] MEDS: ASCORBIC ACID 500 MG TAB PO SCH (08:42)
[2021-03-06] MEDS: MEROPENEM 1,000 MG in NACL 0.9% 50 ML IV SCH ×2 (08:43→22:50)
[2021-03-06] MEDS: LOSARTAN 50 MG TAB PO SCH (08:43)
[2021-03-06] MEDS: METOPROLOL 25 MG TAB PO SCH ×2 (08:43→22:52)
[2021-03-06] MEDS: INSULIN LANTUS 100 UNITS/ML 10 ML VIAL SUBQ SCH ×2 (08:44→21:57)
[2021-03-06 10:22] LABS: ALBUMIN 2.4 g/dL (3.4-5.0); ANION GAP 13.6 (8-16); ASPARTATE AMINOTRANSFERASE 37 U/L (15-37); CHLORIDE 103 mmol/L (98-107); CREATININE 0.7 mg/dL (0.6-1.3); GLUCOSE 83 mg/dL (74-106); PHOSPHORUS 3.4 mg/dL (2.5-4.9); POTASSIUM 4.6 mmol/L (3.5-5.1); SODIUM SERUM 139 mmol/L (136-145); TOTAL BILIRUBIN 0.5 mg/dL (0.0-1.0); UREA NITROGEN, BLOOD 29 mg/dL (7-18)
[2021-03-06 10:59] LABS: MAGNESIUM 2.1 mg/dL (1.8-2.4)
[2021-03-06 12:00] VITALS: BP 158/86
[2021-03-06] MEDS: INSULIN LISPRO SLIDING SCALE 100 UNITS/ML VIAL SUBQ PRN ×3 (12:20→21:52)
[2021-03-06 16:00] VITALS: BP 158/86
--- NOTE | 2021-03-06 18:49 | NUR ---
PT WAS STABLE THROUGHOUT THIS SHIFT. PT WAS ON 50% FIO2 HIGH FLOW NC. BREATHING IS LABORED AND TACHYPNEIC. O2 SAT RANGED FROM 89-92%. UNABLE TO WEAN OFF OXYGEN DUE TO LABORED BREATHING. PT DENIED PAIN OR ANY DISTRESS. PT IS INCONTINENT AND HAD FREQUENT LINEN CHANGES. PT DENIED ANY NAUSEA, VOMITING, DIARRHEA, OR CONSTIPATION. PT REPOSITIONED WITH MINIMUM ASSISTANCE. SKIN IS INTACT AND WARM. PICC LINE STILL IN PLACE IN THE RIGHT UPPER ARM INFUSING FLUIDS ORDERED. FAMILY AT WINDOW THROUGHOUT SHIFT.
--- NOTE | 2021-03-06 19:27 | NUR ---
ENDORSED PT TO CLIENT RELATIONS REPRESENTATIVE NURSE FOR CONTINUITY OF CARE. PT IS STABLE. PLAN OF CARE DISCUSSED.
--- NOTE | 2021-03-06 19:30 | NUR ---
RECEIVED REPORT AT BEDSIDE FOR CONTINUITY OF CARE, PT IS AOX3-4 SHE HAS 15 LITERS HI FLOW N/C WITH FIO2 45%.SHE HAS A RIGHT UPPER PICC LINE INTACT AND RUNNING D5 AT 100MLS/HR. PT HOB UP 45%. SHE HAS NO C/O VOICED AT THIS TIME.
[2021-03-06 20:00] VITALS: BP 129/50
--- NOTE | 2021-03-06 20:15 | NUR ---
PT IN BED HOB UP 90% SHE CONTINUES ON 15 LITERS HI FLOW N/C AT 45% FI02. V/S FOLLOWS: T 98.3 P 71 R 28 B/P 129/50 02 93% WITH ALL CURRENT SETTINGS.
--- NOTE | 2021-03-06 20:25 | NUR ---
DUONEB HHN TX NOT ADMINISTERED DUE TO COVID PROTOCOL.
--- NOTE | 2021-03-06 21:30 | NUR ---
PT WAS TURNED, CHANGED AND REPOSITIONED IN BED. PT FINGERSTICK IS 181. SHE WAS GIVEN 2 UNITS PER S/S COVERAGE WELL ORDERED LANTUS. PT ALSO GIVEN ORDERED HEPARIN IVP, LOPRESSOR PO AND IV ABT MERREM. PURPOSE OF ALL MEDICATION EXPLAINED AT BEDSIDE, PT VERBALIZED UNDERSTANDING WITH REINFORCEMENT. ALL UNIVERSAL FALLS PRECAUTIONS IN PLACE.
[2021-03-07] VITALS: BP 122/93
--- NOTE | 2021-03-07 | NUR ---
02 ROUNDS DONE, PT IN BED RESTING WITH EYES CLOSED, BUT AROUSABLE TO NAME AND LIGHT TOUCH. ALL . PRECAUTIONS IN PLACE. D5 N/S RUNNING AT 100MLS/HR ORDERED. V/S FOLLOWS: T 98.1 P 78 R 28 B/P 129/50 02 93% WITH ALL CURRENT HI FLOW SETTINGS.
[2021-03-07] MEDS: DEXTROSE 5% 1,000 ML IV SCH ×3 (03:47→23:47)
[2021-03-07 04:00] VITALS: BP 96/63
[2021-03-07 06:13] LABS: BASOPHILS % (AUTO) 0.1 % (0.0-2.0); EOSINOPHILS % (AUTO) 0.1 % (0.0-4.0); HEMATOCRIT 31.2 % (36-48); HEMOGLOBIN 10.4 g/dL (12.0-16.0); LYMPHOCYTES # (AUTO) 0.5 K/uL (2.5-16.5); LYMPHOCYTES % (AUTO) 4.6 % (20.5-51.1); MEAN CORPUSCULAR HEMOGLOBIN 29 pg (27-31); MEAN CORPUSCULAR HGB CONC 33 g/dL (33-37); MEAN CORPUSCULAR VOLUME 86.9 fL (80-94); MONOCYTES # (AUTO) 0.4 K/uL (0.8-1.0); MONOCYTES % (AUTO) 4.2 % (1.7-9.3); NEUTROPHILS # (AUTO) 9.7 K/uL (1.8-7.7); PLATELET COUNT (AUTO) 126 K/uL (140-450); RED BLOOD CELL COUNT(AUTO) 3.59 MIL/uL (4.20-5.40); RED CELL DISTRIBUTION WIDTH 14.8 % (11.6-13.7); WHITE BLOOD COUNT (AUTO) 10.6 K/uL (4.8-10.8)
--- NOTE | 2021-03-07 06:30 | NUR ---
PT IN BED SHE WAS TURNED, CHANGED AND REPOSITIONED. 02 REMAINS AT 15 LITERS HI FLOW N/C. AM FINGERSTICK IS 90 NO HUMALOG COVERAGE NEEDED. ALL ORDERED PRECAUTIONS IN PLACE.
[2021-03-07 06:36] LABS: ALBUMIN 2.3 g/dL (3.4-5.0); ANION GAP 10.7 (8-16); ASPARTATE AMINOTRANSFERASE 36 U/L (15-37); CARBON DIOXIDE 29.1 mmol/L (21-32); CHLORIDE 103 mmol/L (98-107); CREATININE 0.6 mg/dL (0.6-1.3); GLUCOSE 85 mg/dL (74-106); MAGNESIUM 2.1 mg/dL (1.8-2.4); PHOSPHORUS 3.5 mg/dL (2.5-4.9); POTASSIUM 4.8 mmol/L (3.5-5.1); SODIUM SERUM 138 mmol/L (136-145); TOTAL BILIRUBIN 0.6 mg/dL (0.0-1.0); UREA NITROGEN, BLOOD 30 mg/dL (7-18)
--- NOTE | 2021-03-07 07:20 | NUR ---
RECEIVED BEDSIDE REPORT FROM BATTERY CHARGER TESTER NURSE FOR CONTINUITY OF CARE. PT IS AWAKE AND ALERT. WOLOF SPEAKING. HIGH FLOW NC 15L AT 45% FIO2. O2 SAT IS 91%. PT IS INCONTINENT OF THE BOWEL AND BLADDER. SKIN IS WARM, DRY, AND INTACT. RIGHT UPPER ARM PICC LINE IN PLACE INFUSING FLUIDS ORDERED. PT IS STABLE. PLAN OF CARE DISCUSSED. NURSING OUT OF RATIO.
[2021-03-07 08:00] VITALS: BP 153/78
[2021-03-07] MEDS: INSULIN LANTUS 100 UNITS/ML 10 ML VIAL SUBQ SCH ×2 (09:00→21:04)
[2021-03-07] MEDS: ASCORBIC ACID 500 MG TAB PO SCH (09:55)
[2021-03-07] MEDS: LOSARTAN 50 MG TAB PO SCH (09:55)
[2021-03-07] MEDS: amLODIPine 5 MG TAB PO SCH (09:55)
[2021-03-07] MEDS: PANTOPRAZOLE 40 MG TABEC PO SCH (09:56)
[2021-03-07] MEDS: METOPROLOL 25 MG TAB PO SCH ×2 (09:56→21:03)
[2021-03-07] MEDS: ZINC SULF 220 MG CAP PO SCH (09:56)
[2021-03-07] MEDS: methylPREDNISolone SS 40 MG/ML VIAL IVP SCH ×2 (09:57→21:03)
[2021-03-07] MEDS: BLOOD GLUCOSE MONITORING 1 DEV DEV FS SCH ×4 (09:58→21:02)
[2021-03-07] MEDS: MEROPENEM 1,000 MG in NACL 0.9% 50 ML IV SCH ×2 (09:58→21:02)
[2021-03-07] MEDS: metFORMIN 850 MG TAB PO SCH ×2 (10:00→16:19)
--- NOTE | 2021-03-07 10:01 | NUR ---
PT WAS NOT GIVEN LANTUS 20 UNITS THE BS READING WAS LOW. BS READING AT 0730 WAS 90. WILL HOLD AND REASSESS AT 1130 AM.
--- NOTE | 2021-03-07 11:29 | NUR ---
PER DR. GALLOWAY DISCONTINUE DROPLET PRECAUTIONS. ALL SIGNS WERE REMOVED.
[2021-03-07 12:00] VITALS: BP 133/66
--- NOTE | 2021-03-07 12:00 | NUR ---
PT IS AWAKE AND ALERT. A&OX4. ANSWERED QUESTIONS APPROPRIATELY. BREATHING LABORED ON HIGH FLOW 15L, 45% FIO2. O2 SAT IS 90%. INCONTINENT OF BOWEL AND BLADDER. DIAPER WAS CHANGED AND LINENS CHANGED. PT DENIES PAIN. PT IS STABLE.
[2021-03-07] MEDS: INSULIN LISPRO SLIDING SCALE 100 UNITS/ML VIAL SUBQ PRN ×2 (12:05→16:30)
[2021-03-07 16:00] VITALS: BP 148/84
[2021-03-07] MEDS ORDERED: HYDRAGUARD CREAM TP ONE (16:45)
[2021-03-07] MEDS: HYDRAGUARD CREAM TP SCH (16:51)
--- NOTE | 2021-03-07 18:58 | NUR ---
PT WAS STABLE THROUGHOUT SHIFT. A&OX4. PT IS ALERT. SITS UP IN BED OCCASIONALLY. ON HIGH FLOW 15L AT 45% FIO2 WITH O2 SAT RANGING FROM 88-94%. BREATHING LABORED. SR ON TELE MONITOR. INCONTINENT. PICC LINE IN PLACE AND PATENT. PT DENIES ANY DISTRESS. SHE ALSO DENIES PAIN. WILL CONTINUE TO MONITOR TILL END OF SHIFT.
[2021-03-07] MEDS: ALBUTEROL SULFATE/IPRATROPIU 3 ML SOL IH SCH (19:00)
--- NOTE | 2021-03-07 19:26 | NUR ---
ENDORSED PT TO DIGITAL MARKETING APPRENTICE NURSE FOR CONTINUITY OF CARE. PT IS STABLE. PLAN OF CARE DISCUSSED.
--- NOTE | 2021-03-07 19:30 | NUR ---
RECEIVED BEDSIDE REPORT FROM DAY SHIFT NURSE FOR CONTINUITY OF CARE. PT IS AWAKE AND ALERT. LAO SPEAKING. HIGH FLOW NC 15L AT 45% FIO2. O2 SAT IS 93%. PT IS INCONTINENT OF THE BOWEL AND BLADDER. SKIN IS WARM, DRY, AND INTACT. RIGHT UPPER ARM PICC LINE IN PLACE. PT IS STABLE. PLAN OF CARE DISCUSSED. NURSING OUT OF RATIO.
[2021-03-07 20:00] VITALS: BP 123/63
--- NOTE | 2021-03-07 21:00 | NUR ---
MEDICATIONS SOLUMEDROL AND METOPROLOL FELL ON THE FLOOR AND HAD TO BE WASTED. I REPLACED MEDICATION AND GOT NEW FROM [facility].
--- NOTE | 2021-03-07 21:15 | NUR ---
SCHEDULED MEDICATION GIVEN. PT TOLERATED WELL. CALL LIGHT WITHIN REACH. WILL CONTINUE TO MONITOR
--- NOTE | 2021-03-07 21:42 | NUR ---
INFORMED BINDERY MACHINE SETTER/SET UP OPERATOR CURLY PT. WANTS TO CLEAN UP .
[2021-03-08] VITALS: BP 151/67
[2021-03-08 04:00] VITALS: BP 140/77
[2021-03-08 06:28] LABS: BASOPHILS % (AUTO) 0.3 % (0.0-2.0); EOSINOPHILS % (AUTO) 0.1 % (0.0-4.0); HEMATOCRIT 30.7 % (36-48); HEMOGLOBIN 10.4 g/dL (12.0-16.0); LYMPHOCYTES # (AUTO) 0.6 K/uL (2.5-16.5); MEAN CORPUSCULAR HEMOGLOBIN 29 pg (27-31); MEAN CORPUSCULAR HGB CONC 34 g/dL (33-37); MEAN CORPUSCULAR VOLUME 86.6 fL (80-94); MONOCYTES # (AUTO) 0.4 K/uL (0.8-1.0); MONOCYTES % (AUTO) 3.9 % (1.7-9.3); NEUTROPHILS # (AUTO) 8.8 K/uL (1.8-7.7); NEUTROPHILS % (AUTO) 89.7 % (42.2-75.2); PLATELET COUNT (AUTO) 123 K/uL (140-450); RED BLOOD CELL COUNT(AUTO) 3.54 MIL/uL (4.20-5.40); WHITE BLOOD COUNT (AUTO) 9.9 K/uL (4.8-10.8)
[2021-03-08] MEDS: BLOOD GLUCOSE MONITORING 1 DEV DEV FS SCH ×4 (06:36→20:31)
[2021-03-08 06:37] LABS: ALBUMIN 2.3 g/dL (3.4-5.0); ANION GAP 11.6 (8-16); ASPARTATE AMINOTRANSFERASE 30 U/L (15-37); CARBON DIOXIDE 29.3 mmol/L (21-32); CHLORIDE 102 mmol/L (98-107); CREATININE 0.7 mg/dL (0.6-1.3); GLUCOSE 166 mg/dL (74-106); PHOSPHORUS 3.8 mg/dL (2.5-4.9); POTASSIUM 4.9 mmol/L (3.5-5.1); SODIUM SERUM 138 mmol/L (136-145); TOTAL BILIRUBIN 0.6 mg/dL (0.0-1.0); UREA NITROGEN, BLOOD 31 mg/dL (7-18)
[2021-03-08] MEDS: INSULIN LISPRO SLIDING SCALE 100 UNITS/ML VIAL SUBQ PRN ×3 (06:54→21:25)
[2021-03-08] MEDS: ALBUTEROL SULFATE/IPRATROPIU 3 ML SOL IH SCH ×3 (07:00→20:26)
--- NOTE | 2021-03-08 07:31 | NUR ---
RECEIVED REPORT FROM ACCOUNT REVIEW SPECIALIST NURSE. PT STABLE. NO S/S OF DISTRESS. CALL LIGHT IN REACH. ALL SAFETY MEASURES IN PLACE
[2021-03-08 08:00] VITALS: BP 161/69
[2021-03-08] MEDS: metFORMIN 850 MG TAB PO SCH ×2 (08:00→17:32)
[2021-03-08] MEDS: DEXTROSE 5% 1,000 ML IV SCH ×2 (09:47→19:47)
[2021-03-08] MEDS: INSULIN LANTUS 100 UNITS/ML 10 ML VIAL SUBQ SCH ×2 (09:48→20:33)
[2021-03-08] MEDS: ZINC SULF 220 MG CAP PO SCH (09:49)
[2021-03-08] MEDS: PANTOPRAZOLE 40 MG TABEC PO SCH (09:49)
[2021-03-08] MEDS: METOPROLOL 25 MG TAB PO SCH ×2 (09:49→20:31)
[2021-03-08] MEDS: ASCORBIC ACID 500 MG TAB PO SCH (09:50)
[2021-03-08] MEDS: amLODIPine 5 MG TAB PO SCH (09:50)
[2021-03-08] MEDS: LOSARTAN 50 MG TAB PO SCH (09:50)
[2021-03-08] MEDS: methylPREDNISolone SS 40 MG/ML VIAL IVP SCH ×2 (09:50→20:31)
--- NOTE | 2021-03-08 11:36 | NUR ---
PT HAD BM. PT CLEANED AND CHANGED. FAMILY OUTSIDE WINDOW. PT STABLE. NO S/S OF DISTRESS. CALL LIGHT IN REACH. ALL SAFETY MEASURES IN PLACE
[2021-03-08 12:00] VITALS: BP 166/67
--- NOTE | 2021-03-08 14:31 | NUR ---
PT RESTING IN BED. PHYSICAL THERAPY AT BEDSIDE. PT STABLE. NO S/S OF DISTRESS. CALL LIGHT IN REACH. ALL SAFETY MEASURES IN PLACE
[2021-03-08 16:00] VITALS: BP 144/55
--- NOTE | 2021-03-08 19:18 | NUR ---
ENDORSED PT TO TELEPHONE CLERK NURSE. FAMILY AT BEDSIDE
--- NOTE | 2021-03-08 19:20 | NUR ---
RECEIVED BEDSIDE REPORT FROM DAY SHIFT NURSE FOR CONTINUITY OF CARE. PT IS AWAKE AND ALERT. POLISH SPEAKING. HIGH FLOW NC 15L AT 45% FIO2. O2 SAT IS 92%. PT IS INCONTINENT OF THE BOWEL AND BLADDER. SKIN IS WARM, DRY, AND INTACT. RIGHT UPPER ARM PICC LINE IN PLACE. CALL LIGHT WITHIN REACH. WILL CONTINUE TO MONITOR
[2021-03-08 20:00] VITALS: BP 124/62
--- NOTE | 2021-03-08 21:00 | NUR ---
DUE MEDS GIVEN. PT TOLERATED WELL. ALL PRECAUTIONS IN PLACE. WILL CONTINUE TO MONITOR.
--- NOTE | 2021-03-08 21:30 | NUR ---
PT CLEANED AND CHANGED. PT TOLERATED WELL. ALL PRECAUTIONS IN PLACE. WILL CONTINUE TO MONITOR.
[2021-03-09] VITALS: BP 130/61
--- NOTE | 2021-03-09 | NUR ---
VS STABLE. NO S/SX OF DISTRESS NOTED. ALL PRECAUTIONS IN PLACE. WILL CONTINUE TO MONITOR.
--- NOTE | 2021-03-09 03:01 | NUR ---
PT ASLEEP. VISIBLE CHEST RISE AND FALL NOTED. CALL LIGHT WITHIN REACH. WILL CONTINUE TO MONITOR.
[2021-03-09 04:00] VITALS: BP 150/96
[2021-03-09] MEDS: DEXTROSE 5% 1,000 ML IV SCH ×2 (05:47→14:47)
--- NOTE | 2021-03-09 06:15 | NUR ---
PT IS STABLE. NO ACUTE EVENTS THROUGOUTTHE NIGHT. ALL NEEDS MET. WILL ENDORSE TO AM SHIFT NURSE.
[2021-03-09 06:27] LABS: BASOPHILS % (AUTO) 0.3 % (0.0-2.0); EOSINOPHILS % (AUTO) 0.1 % (0.0-4.0); HEMATOCRIT 29.6 % (36-48); HEMOGLOBIN 9.9 g/dL (12.0-16.0); LYMPHOCYTES # (AUTO) 0.6 K/uL (2.5-16.5); LYMPHOCYTES % (AUTO) 6.7 % (20.5-51.1); MEAN CORPUSCULAR HEMOGLOBIN 29 pg (27-31); MEAN CORPUSCULAR HGB CONC 34 g/dL (33-37); MEAN CORPUSCULAR VOLUME 86.6 fL (80-94); MONOCYTES # (AUTO) 0.3 K/uL (0.8-1.0); MONOCYTES % (AUTO) 3.8 % (1.7-9.3); NEUTROPHILS # (AUTO) 8.1 K/uL (1.8-7.7); NEUTROPHILS % (AUTO) 89.1 % (42.2-75.2); PLATELET COUNT (AUTO) 125 K/uL (140-450); RED BLOOD CELL COUNT(AUTO) 3.42 MIL/uL (4.20-5.40); RED CELL DISTRIBUTION WIDTH 15.5 % (11.6-13.7)
[2021-03-09 07:03] LABS: ALBUMIN 2.2 g/dL (3.4-5.0); ANION GAP 13.3 (8-16); ASPARTATE AMINOTRANSFERASE 26 U/L (15-37); CARBON DIOXIDE 26.1 mmol/L (21-32); CHLORIDE 104 mmol/L (98-107); CREATININE 0.7 mg/dL (0.6-1.3); GLUCOSE 149 mg/dL (74-106); PHOSPHORUS 3.9 mg/dL (2.5-4.9); POTASSIUM 4.4 mmol/L (3.5-5.1); SODIUM SERUM 139 mmol/L (136-145); TOTAL BILIRUBIN 0.5 mg/dL (0.0-1.0); UREA NITROGEN, BLOOD 30 mg/dL (7-18)
[2021-03-09] MEDS: BLOOD GLUCOSE MONITORING 1 DEV DEV FS SCH ×4 (07:08→21:13)
[2021-03-09] MEDS: ALBUTEROL SULFATE/IPRATROPIU 3 ML SOL IH SCH ×3 (07:34→19:56)
--- NOTE | 2021-03-09 07:49 | NUR ---
ENDORSED TO AM SHIFT NURSE FOR CONTINUITY OF CARE. PT IS STABLE
--- NOTE | 2021-03-09 07:50 | NUR ---
RECEIVED BEDSIDE REPORT FROM SAMPLE TAILOR NURSE FOR CONTINUITY OF CARE. PT IS AWAKE AND ALERT. [place] SPEAKING. HIGH FLOW NC 15L AT 45% FIO2. O2 SAT IS 92%. PT IS INCONTINENT OF THE BOWEL AND BLADDER. SKIN IS WARM, DRY, AND INTACT. RIGHT UPPER ARM PICC LINE IN PLACE. PLAN OF CARE DISCUSSED. CALL LIGHT WITHIN REACH. WILL CONTINUE TO MONITOR
[2021-03-09 08:00] VITALS: BP 157/96
--- NOTE | 2021-03-09 08:10 | NUR ---
RT AT BEDSIDE. RT PLACED PT ON 6L NC. O2 SATURATION AT 96%
[2021-03-09] MEDS: methylPREDNISolone SS 40 MG/ML VIAL IVP SCH (09:53)
[2021-03-09] MEDS: metFORMIN 850 MG TAB PO SCH ×2 (09:58→17:55)
[2021-03-09] MEDS: INSULIN LANTUS 100 UNITS/ML 10 ML VIAL SUBQ SCH ×2 (09:58→21:16)
[2021-03-09] MEDS: ZINC SULF 220 MG CAP PO SCH (10:00)
[2021-03-09] MEDS: METOPROLOL 25 MG TAB PO SCH ×2 (10:00→21:14)
[2021-03-09] MEDS: ASCORBIC ACID 500 MG TAB PO SCH (10:00)
[2021-03-09] MEDS: PANTOPRAZOLE 40 MG TABEC PO SCH (10:00)
[2021-03-09] MEDS: amLODIPine 5 MG TAB PO SCH (10:00)
[2021-03-09] MEDS: LOSARTAN 50 MG TAB PO SCH (10:00)
--- NOTE | 2021-03-09 10:08 | NUR ---
ALL SCHEDULED MEDS GIVEN. PT IS STABLE. NO DISTRESS NOTED. WILL CONTINUE TO MONITOR.
[2021-03-09] MEDS: INSULIN LISPRO SLIDING SCALE 100 UNITS/ML VIAL SUBQ PRN ×2 (11:55→18:00)
--- NOTE | 2021-03-09 11:55 | NUR ---
BLOOD GLUCOSE CHECK WAS 178. ADMINISTERED 2 UNITS OF INSULIN SQ PER MD ORDERED
[2021-03-09 12:00] VITALS: BP 172/83
[2021-03-09] MEDS: lisinopriL 20 MG TAB PO SCH (14:29)
[2021-03-09] MEDS: MENTHOL/ZINC OXIDE 113 GM TUBE TP SCH (14:29)
--- NOTE | 2021-03-09 14:50 | NUR ---
ALL SCHEDULED MEDICATIONS. PATIENT IS STABLE. NO DISTRESS NOTED. WILL CONTINUE TO MONITOR.
[2021-03-09 16:00] VITALS: BP 132/57
--- NOTE | 2021-03-09 19:13 | NUR ---
ENDORSED TO DRUG ABUSE COUNSELOR NURSE FOR CONTINUITY OF CARE. PT IS STABLE.
--- NOTE | 2021-03-09 19:15 | NUR ---
RECEIVED REPORT FROM MORNING SHIFT NURSE FOR CONTINUITY OF CARE. PATIENT IS STABLE IN BED. A&OX4 DANISH SPEAKING ONLY. VERBALLY RESPONSIVE AND ABLE TO COMMUNICATE NEEDS. DENIES PAIN. ON 6L VIA NC WITH AN O2 SAT OF 96%. RESPIRATIONS EVEN AND UNLABORED WITH NO APPARENT S/SX OF ACUTE DISTRESS. IV SITE JANES PICC IS PATENT/INTACT WITH D5NS INFUSING AT 100 ML/HOUR. PATIENT IS INCONTINENT AND UTILIZES PULL UPS. PLAN OF CARE AND WHITE COMMUNICATION BOARD UPDATED. BED IN LOW/LOCKED POSITION. CALL LIGHT WITHIN REACH. WILL CONTINUE TO MONITOR.
--- NOTE | 2021-03-09 19:44 | NUR ---
RECEIVED BEDSIDE REPORT FROM DAY SHIFT NURSE FOR CONTINUITY OF CARE. PT IS AWAKE AND ALERT. ALBANIAN SPEAKING. HIGH FLOW NC 15L AT 45% FIO2. O2 SAT IS 92%. PT IS INCONTINENT OF THE BOWEL AND BLADDER. SKIN IS WARM, DRY, AND INTACT. RIGHT UPPER ARM PICC LINE IN PLACE. CALL LIGHT WITHIN REACH. WILL CONTINUE TO MONITOR Addendum: 03/09/21 at 1945 by Nicko Ward RN RN WRONG NOTE ON PATIENT
[2021-03-09 20:00] VITALS: BP 135/71
--- NOTE | 2021-03-09 21:10 | NUR ---
ADMINISTERED SCHEDULED MEDICATIONS PER MD ORDER. CHECKED PATIENT'S BLOOD SUGAR AND NO COVERAGE NEEDED PER MD ORDER. TOLERATED WELL. NO ADVERSE REACTION NOTED. DENIES PAIN. RESPIRATIONS EVEN AND UNLABORED WITH NO APPARENT S/SX OF ACUTE DISTRESS. SNACKS PROVIDED. WHITE COMMUNICATION BOARD UPDATED. ALL SAFETY MEASURES IN PLACE. CALL LIGHT WITHIN REACH. WILL CONTINUE TO MONITOR.
--- NOTE | 2021-03-09 23:10 | NUR ---
CHECKED PATIENT. STABLE AND ASLEEP. CHEST IS RISING AND FALLING SYMMETRICALLY. RESPIRATIONS EVEN AND UNLABORED WITH NO APPARENT S/SX OF ACUTE DISTRESS. WHITE COMMUNICATION BOARD UPDATED. ALL SAFETY MEASURES IN PLACE. CALL LIGHT WITHIN REACH. WILL CONTINUE TO MONITOR.
[2021-03-10] VITALS: BP 120/61
--- NOTE | 2021-03-10 01:10 | NUR ---
ROUNDED ON PATIENT. STABLE AND ASLEEP. CHEST RISING AND FALLING SYMMETRICALLY. RESPIRATIONS EVEN AND UNLABORED WITH NO APPARENT S/SX OF ACUTE DISTRESS. CLEANED UP EMPTY IV ABX BAGS. WHITE COMMUNICATION BOARD UPDATED. ALL SAFETY MEASURES IN PLACE. CALL LIGHT WITHIN REACH. WILL CONTINUE TO MONITOR.
[2021-03-10] MEDS: MENTHOL/ZINC OXIDE 113 GM TUBE TP SCH ×2 (01:19→13:22)
[2021-03-10] MEDS: DEXTROSE 5% 1,000 ML IV SCH ×3 (01:47→21:47)
[2021-03-10 04:00] VITALS: BP 118/65
--- NOTE | 2021-03-10 05:15 | NUR ---
ROUNDED ON PATIENT. STABLE AND ASLEEP. CHEST IS RISING AND FALLING SYMMETRICALLY. RESPIRATIONS EVEN AND UNLABORED WITH NO APPARENT S/SX OF ACUTE DISTRESS. ALL NEEDS MET. WHITE COMMUNICATION BOARD UPDATED. ALL SAFETY MEASURES IN PLACE. CALL LIGHT WITHIN REACH. WILL CONTINUE TO MONITOR.
[2021-03-10] MEDS: BLOOD GLUCOSE MONITORING 1 DEV DEV FS SCH ×4 (06:57→21:00)
--- NOTE | 2021-03-10 07:15 | NUR ---
ENDORSED PATIENT TO MORNING SHIFT NURSE FOR CONTINUITY OF CARE. PATIENT IS STABLE.
[2021-03-10] MEDS: ALBUTEROL SULFATE/IPRATROPIU 3 ML SOL IH SCH ×3 (07:32→19:00)
[2021-03-10 08:00] VITALS: BP 153/72
--- NOTE | 2021-03-10 08:12 | NUR ---
RECEIVED PT AWAKE, ORIENTED X4 , SKIN WARM TO TOUCH RESP. EVEN AND UNLABORED, O2 4LVIA N/C, NOTED BRUISES ON BOTH UPPER EXTREMITIES AND ABDOMEN,O2 SAT AT THIS TIME 92, FLUSH RIGHT UPPER PICCLINE, ABLE TO FLUSH AND DRAW BLOOD ON RED PORT, PURPLE PORT NOT WORKING, WILL INFORM
[2021-03-10] MEDS: INSULIN LANTUS 100 UNITS/ML 10 ML VIAL SUBQ SCH ×2 (09:00→22:51)
[2021-03-10] MEDS: metFORMIN 850 MG TAB PO SCH ×2 (10:29→17:23)
[2021-03-10] MEDS: ASCORBIC ACID 500 MG TAB PO SCH (10:30)
[2021-03-10] MEDS: METOPROLOL 25 MG TAB PO SCH ×2 (10:30→21:00)
[2021-03-10] MEDS: PANTOPRAZOLE 40 MG TABEC PO SCH (10:31)
[2021-03-10] MEDS: predniSONE 20 MG TAB PO SCH (10:31)
[2021-03-10] MEDS: lisinopriL 20 MG TAB PO SCH (10:31)
[2021-03-10] MEDS: amLODIPine 5 MG TAB PO SCH (10:32)
[2021-03-10] MEDS: LOSARTAN 50 MG TAB PO SCH (10:32)
[2021-03-10] MEDS: ZINC SULF 220 MG CAP PO SCH (10:32)
--- NOTE | 2021-03-10 10:37 | NUR ---
DR FIGUEROA AT BEDSIDE Addendum: 03/10/21 at 1207 by Magnolia Diez RN AWARE PLATELET 125, SAID OK TO GIVE HEPARIN
--- NOTE | 2021-03-10 11:01 | NUR ---
MD AWARE PT PURPLE PORT PICCLINE NOT WORKING , LAST DRESSING CHANGED ON PICCLINE 03/09/21
[2021-03-10 12:00] VITALS: BP 145/72
--- NOTE | 2021-03-10 12:06 | NUR ---
FLUSHED PURPLE PORT AGAIN , ABLE TO FLUSHED AND DRAW BLOOD
[2021-03-10] MEDS: INSULIN LISPRO SLIDING SCALE 100 UNITS/ML VIAL SUBQ PRN ×2 (13:25→17:25)
--- NOTE | 2021-03-10 13:26 | NUR ---
PER DAUGHTER PATIENT USED INCENTIVE SPIROMETER, RT AT BEDSIDE AND WILL ALSO ASSIST PT IN USING THE INCENTIVE SPIROMETER
[2021-03-10 16:00] VITALS: BP 125/53
--- NOTE | 2021-03-10 17:27 | NUR ---
PATIENT AWAKE, DANGLING HER FOOT ON THE SIDE OF THE BED, DAUGHTER AT BEDSIDE, NO SOB , ON O2 AT 4L/MIN,
--- NOTE | 2021-03-10 19:30 | NUR ---
RECEIVED REPORT FROM RN DAYSHIFT NURSE AT BEDSIDE FOR CONTINUITY OF CARE,PT LYING IN BED, HOB UP 45%, SHE IS ON 4 LITERS VIA N/C WITH HUMIDIFIED AIR. SHE HAS A RIGHT UPPER PICC LINE RUNNING D5 AT 100MLS/HR. ALL ORDERED PRECAUTIONS IN PLACE.
[2021-03-10 20:00] VITALS: BP 135/72
--- NOTE | 2021-03-10 20:00 | NUR ---
PT IN BED NO S/S OF PAIN OR DISTRESS NOTED, SHE CONTINUES ON 4 LITERS OF HUMIDIFIED 02 V/S FOLLOWS: T 97.8 P 72 R 30 B/P 135/72 02 93%.
--- NOTE | 2021-03-10 21:40 | NUR ---
PT GIVEN ORDERED PO LOPRESSOR, AND HEPARIN SQ. EDUCATION PROVIDED REGARDING PURPOSE FOR MEDICATION. WITH REINFORCEMENT PT VERBALIZED UNDERSTANDING. PT FINGERSTICK IS 142, NO HUMALOG S/S COVERAGE NEEDED. PT GIVEN ORDERED LANTUS. PT HAS NO C/O VOICED.
[2021-03-11] VITALS: BP 124/58
--- NOTE | 2021-03-11 | NUR ---
PT SLEEPING IN BED NO S/S OF PAIN OR DISTRESS NOTED V/S FOLLOWS: T 97.9 P 92 R 30 B/P 124/58 02 93% WITH 4 LITERS OF HUMIDIFIED 02. ALL ORDERED PRECAUTIONS IN PLACE.
[2021-03-11] MEDS: ALBUTEROL SULFATE/IPRATROPIU 3 ML SOL IH PRN ×3 (00:01→22:18)
[2021-03-11] MEDS: MENTHOL/ZINC OXIDE 113 GM TUBE TP SCH ×2 (01:00→13:01)
[2021-03-11 04:00] VITALS: BP 131/61
[2021-03-11] MEDS: BLOOD GLUCOSE MONITORING 1 DEV DEV FS SCH ×4 (06:12→21:00)
[2021-03-11] MEDS: ALBUTEROL SULFATE/IPRATROPIU 3 ML SOL IH SCH ×3 (07:38→19:00)
[2021-03-11 08:00] VITALS: BP 124/58
[2021-03-11] MEDS: DEXTROSE 5% 1,000 ML IV SCH ×2 (08:31→18:20)
[2021-03-11] MEDS: INSULIN LANTUS 100 UNITS/ML 10 ML VIAL SUBQ SCH ×2 (09:00→23:51)
[2021-03-11] MEDS: metFORMIN 850 MG TAB PO SCH ×2 (09:00→17:27)
[2021-03-11] MEDS: ZINC SULF 220 MG CAP PO SCH (09:15)
[2021-03-11] MEDS: ASCORBIC ACID 500 MG TAB PO SCH (09:15)
[2021-03-11] MEDS: amLODIPine 5 MG TAB PO SCH (09:15)
[2021-03-11] MEDS: PANTOPRAZOLE 40 MG TABEC PO SCH (09:16)
[2021-03-11] MEDS: METOPROLOL 25 MG TAB PO SCH ×2 (09:16→23:47)
[2021-03-11] MEDS: predniSONE 20 MG TAB PO SCH (09:17)
[2021-03-11] MEDS: LOSARTAN 50 MG TAB PO SCH (09:19)
[2021-03-11] MEDS: lisinopriL 20 MG TAB PO SCH (09:20)
--- NOTE | 2021-03-11 11:04 | NUR ---
Recieved patient in bed, family at bed side. BS this morning 46, it was given D50 IVP, rechecked at 54. am meds given, held am insulin. will continue to monitor.
[2021-03-11] MEDS: INSULIN LISPRO SLIDING SCALE 100 UNITS/ML VIAL SUBQ PRN ×3 (11:53→23:52)
--- NOTE | 2021-03-11 12:00 | NUR ---
BLOOD SUGAR CHECK WITH RESULT OF 188 AND COVERAGE GIVEN. PT HAD BM MEDIUM FORM. ASSISTED TO CHANGE AND CLEANSE PT.
--- NOTE | 2021-03-11 14:00 | NUR ---
PT ON BED RESTING WITH IV AT 100 CC/HOUR TOLERATED WELL. ON STABLE CONDITION. NO SHORTNESS OF BREATH. DAUGHTER AT BED SIDE.
[2021-03-11 16:15] VITALS: BP 148/88
--- NOTE | 2021-03-11 16:47 | NUR ---
BLOOD SUGAR CHECKED GIVEN INSULIN COVERAGE ORDER. ALL SAFETY MEASURE IN PLACE. HEAD OF BED ELEVATED FOR COMFORT.
--- NOTE | 2021-03-11 18:39 | NUR ---
PT SITTING ON EDGE OF BED DAUGHTER AT BED SIDE. DENIES ANY DISCOMFORT. ALL SAFETY MEASURE IN PLACE.
--- NOTE | 2021-03-11 19:35 | NUR ---
GIVE REPORT TO SALES DEVELOPMENT CONSULTANT NURSE FOR CONTINUITY OF CARE.
[2021-03-11 20:00] VITALS: BP 141/81
[2021-03-12] MEDS: MENTHOL/ZINC OXIDE 113 GM TUBE TP SCH ×2 (01:00→13:04)
[2021-03-12 04:00] VITALS: BP 139/68
[2021-03-12] MEDS: DEXTROSE 5% 1,000 ML IV SCH ×2 (04:43→14:21)
--- NOTE | 2021-03-12 06:45 | NUR ---
BS=32 - PT RESPONSIVE AND APPROPRIATE. IVP D50 PER PROTOCOL. RECHECK
[2021-03-12] MEDS: BLOOD GLUCOSE MONITORING 1 DEV DEV FS SCH ×4 (07:15→21:05)
[2021-03-12 08:00] VITALS: BP_SYST 128; BP_SYST 158; BP_DIAS 77; BP_DIAS 81
--- NOTE | 2021-03-12 08:07 | NUR ---
RECEIVED REPORT FROM SHOWER ENCLOSURE INSTALLERFREELANCE COPYWRITER NURSE AT BEDSIDE FOR CONTINUITY OF CARE,PT LYING IN BED, HOB UP 45%, SHE IS ON 4 LITERS VIA N/C WITH HUMIDIFIED AIR. BREATHING EVEN UNLABORED AX4 CALLS LIGHT WITHIN REACH ALL SAFETY MEASURES ON PLACE
[2021-03-12] MEDS: ALBUTEROL SULFATE/IPRATROPIU 3 ML SOL IH SCH ×3 (08:28→19:00)
[2021-03-12] MEDS: metFORMIN 850 MG TAB PO SCH ×2 (09:18→16:40)
[2021-03-12] MEDS: LOSARTAN 50 MG TAB PO SCH (09:18)
[2021-03-12] MEDS: ZINC SULF 220 MG CAP PO SCH (09:18)
[2021-03-12] MEDS: ASCORBIC ACID 500 MG TAB PO SCH (09:19)
[2021-03-12] MEDS: lisinopriL 20 MG TAB PO SCH (09:19)
[2021-03-12] MEDS: predniSONE 20 MG TAB PO SCH (09:19)
[2021-03-12] MEDS: METOPROLOL 25 MG TAB PO SCH ×2 (09:20→21:04)
[2021-03-12] MEDS: amLODIPine 5 MG TAB PO SCH (09:20)
[2021-03-12] MEDS: PANTOPRAZOLE 40 MG TABEC PO SCH (09:20)
[2021-03-12] MEDS: INSULIN LANTUS 100 UNITS/ML 10 ML VIAL SUBQ SCH ×2 (09:36→21:03)
[2021-03-12 11:06] LABS: BASOPHILS % (AUTO) 0.6 % (0.0-2.0); EOSINOPHILS # (AUTO) 0.1 K/uL (0-0.4); EOSINOPHILS % (AUTO) 1.6 % (0.0-4.0); HEMATOCRIT 32.2 % (36-48); HEMOGLOBIN 10.6 g/dL (12.0-16.0); LYMPHOCYTES # (AUTO) 0.7 K/uL (2.5-16.5); LYMPHOCYTES % (AUTO) 8.9 % (20.5-51.1); MEAN CORPUSCULAR HEMOGLOBIN 29 pg (27-31); MEAN CORPUSCULAR HGB CONC 33 g/dL (33-37); MEAN CORPUSCULAR VOLUME 88.2 fL (80-94); MONOCYTES # (AUTO) 0.2 K/uL (0.8-1.0); MONOCYTES % (AUTO) 3.1 % (1.7-9.3); NEUTROPHILS # (AUTO) 6.4 K/uL (1.8-7.7); NEUTROPHILS % (AUTO) 85.8 % (42.2-75.2); PLATELET COUNT (AUTO) 118 K/uL (140-450); RED BLOOD CELL COUNT(AUTO) 3.65 MIL/uL (4.20-5.40); RED CELL DISTRIBUTION WIDTH 16.4 % (11.6-13.7); WHITE BLOOD COUNT (AUTO) 7.5 K/uL (4.8-10.8)
--- NOTE | 2021-03-12 11:34 | NUR ---
PATIENT IN BED NO COMPLAINS GOT MORNING MEDICATION TOLERATED WELL, NO SOD NOTED CALLS LIGHT WITHIN REACH ALL SAFETY MEASURES ON PLACE
[2021-03-12 11:41] LABS: ANION GAP 13.3 (8-16); CARBON DIOXIDE 28.6 mmol/L (21-32); CHLORIDE 102 mmol/L (98-107); CREATININE 0.7 mg/dL (0.6-1.3); GLUCOSE 219 mg/dL (74-106); POTASSIUM 3.9 mmol/L (3.5-5.1); SODIUM SERUM 140 mmol/L (136-145); UREA NITROGEN, BLOOD 23 mg/dL (7-18)
[2021-03-12] MEDS ORDERED: VITC500 PO (11:53)
[2021-03-12] MEDS ORDERED: PRED20TA5 PO (11:53)
[2021-03-12] MEDS ORDERED: LANTUS SUBQ (11:53)
[2021-03-12] MEDS ORDERED: DOCU-299 PO (11:53)
[2021-03-12] MEDS ORDERED: ZINC220C29 PO (11:53)
[2021-03-12] MEDS ORDERED: AMLO-3 PO (11:53)
[2021-03-12] MEDS: INSULIN LISPRO SLIDING SCALE 100 UNITS/ML VIAL SUBQ PRN ×2 (12:14→21:02)
--- NOTE | 2021-03-12 14:23 | NUR ---
PATIENT IN BED NO COMPLAINS NO SOD NOTED, FAMILY MEMBER NEXT TO BED SIDE ALL SAFETY MEASURES ON PLACE CALLS LIGHT WITHIN REACH
--- NOTE | 2021-03-12 15:51 | NUR ---
PHYSICAL THERAPY CO-SIGN The Physical Therapy Progress Notes documented by Visual Merchandising Specialist have been reviewed. Reviewed/Co-Signed by: Orin Mix Documentation Done by: NETTA BRUMFIELD PTA Addendum: 03/12/21 at 1552 by Orin Mix PT Amended: Links added.
--- NOTE | 2021-03-12 16:50 | NUR ---
PATIENT IN BED NO COMPLAINS NO SOD NOTED, FAMILY MEMBER NEXT TO THE WINDOW ALL SAFETY MEASURES ON PLACE CALLS LIGHT WITHIN REACH
--- NOTE | 2021-03-12 19:50 | NUR ---
FULL REPORT GIVEN TO TRAFFIC OFFICER NURSE
[2021-03-12 20:00] VITALS: BP 128/68
--- NOTE | 2021-03-12 20:02 | NUR ---
Patient received from AM shift nurse. Patient is [id number] able to verbalize needs and has family at bedside. Patient denies chest pain or SOB. Chest rise is even and unlabored on 4L NC. Normal heart sounds present. Active bowel sounds x4 on auscultation. No abd tenderness on palpation. JANES PICC line noted and it is infusing D5 at 100 ml hr. Patient denies pain. Patient has call light within reach, bed is locked in the lowest position with bed rails up. Will continue to monitor throughout the shift.
[2021-03-13] MEDS: DEXTROSE 5% 1,000 ML IV SCH ×3 (02:30→19:47)
[2021-03-13] MEDS: MENTHOL/ZINC OXIDE 113 GM TUBE TP SCH ×2 (02:30→13:02)
[2021-03-13 04:00] VITALS: BP 148/68
[2021-03-13] MEDS: BLOOD GLUCOSE MONITORING 1 DEV DEV FS SCH ×4 (06:27→22:41)
--- NOTE | 2021-03-13 06:59 | NUR ---
Patient is currently sleeping no s/s of distress is noted. Patient is stable and all current needs have been met. Safety protocols are in place. Will differ further care to AM shift nurse for continuity of care.
--- NOTE | 2021-03-13 07:05 | NUR ---
RECEIVED REPORT FROM COUPON COLLECTION CLERK NURSE AT BEDSIDE. PT LYING IN BED, ON 4 LITERS VIA N/C WITH HUMIDIFIED AIR. SHE HAS RIGHT UPPER PICC LINE RUNNING D5 AT 100MLS/HR. BREATHING IS EVEN AND UNLABORED. NO SIGNS OF DISTRESS NOTED. PT IS STABLE.
[2021-03-13] MEDS: ALBUTEROL SULFATE/IPRATROPIU 3 ML SOL IH SCH ×3 (07:10→20:30)
[2021-03-13 08:00] VITALS: BP 159/75
[2021-03-13] MEDS: metFORMIN 850 MG TAB PO SCH ×2 (08:00→16:21)
[2021-03-13] MEDS: ZINC SULF 220 MG CAP PO SCH (09:00)
[2021-03-13] MEDS: INSULIN LANTUS 100 UNITS/ML 10 ML VIAL SUBQ SCH ×2 (09:00→22:40)
[2021-03-13] MEDS: METOPROLOL 25 MG TAB PO SCH ×2 (09:00→21:00)
[2021-03-13] MEDS: ASCORBIC ACID 500 MG TAB PO SCH (09:00)
[2021-03-13] MEDS: predniSONE 20 MG TAB PO SCH (09:00)
[2021-03-13] MEDS: PANTOPRAZOLE 40 MG TABEC PO SCH (09:00)
[2021-03-13] MEDS: lisinopriL 20 MG TAB PO SCH (09:00)
[2021-03-13] MEDS: LOSARTAN 50 MG TAB PO SCH (09:00)
[2021-03-13] MEDS: amLODIPine 5 MG TAB PO SCH (09:00)
--- NOTE | 2021-03-13 11:01 | NUR ---
DID A ROOM AIR TRIAL WITH PATIENT WHILE SITTING UP. PT WAS PREVIOUSLY ON 3L NC. ON ROOM AIR WHILE SITTING UP, PT DESATURATED TO 83% WITHIN 60 SECONDS. AT THAT TIME I PUT THE NASAL CANNULA AT 3L AND PATIENT WENT BACK UP TO 94%. PT IS NOW STABLE, WILL CONTINUE TO MONITOR.
--- NOTE | 2021-03-13 12:00 | NUR ---
BLOOD SUGAR IS 207. 4 UNITS OF LISPRO GIVEN TO COVER. PT LYING IN BED, ON 4 LITERS VIA N/C WITH HUMIDIFIED AIR. SHE HAS RIGHT UPPER PICC LINE RUNNING D5 AT 100MLS/HR. BREATHING IS EVEN AND UNLABORED. NO SIGNS OF DISTRESS NOTED. PT IS STABLE.
[2021-03-13] MEDS: INSULIN LISPRO SLIDING SCALE 100 UNITS/ML VIAL SUBQ PRN ×3 (13:05→22:51)
[2021-03-13] MEDS ORDERED: HYDRAGUARD CREAM TP SCH (13:10)
--- NOTE | 2021-03-13 14:56 | NUR ---
PT LYING IN BED, ON 4 LITERS VIA N/C WITH HUMIDIFIED AIR. SHE HAS RIGHT UPPER PICC LINE RUNNING D5 AT 100MLS/HR. BREATHING IS EVEN AND UNLABORED. NO SIGNS OF DISTRESS NOTED. PT IS STABLE.
--- NOTE | 2021-03-13 15:25 | NUR ---
03/13/21 RD FOLLOW UP COMPLETED PLEASE REFER TO NUTRITION ASSESSMENT UNDER CARE ACTIVITY FOR ESTIMATED NUTRITIONAL NEEDS. 1. CONTINUE CCHO 60 GM, MECHANICAL SOFT DIET TOLERATED 2. CONTINUE GLUCERNA CHOCOLATE TID PER PROTOCOL -PROVIDES 660 KCAL AND 30 GM PROTEIN DAILY 3. MONITOR BLOOD GLUCOSE LEVELS 4. RD TO FOLLOW-UP 7 DAYS, LOW RISK (DOWNGRADED D/T PT EATING WELL AND CLINICALLY STABLE) JAYLENE RODRIGUEZ RD
[2021-03-13 16:00] VITALS: BP 119/56
--- NOTE | 2021-03-13 16:00 | NUR ---
PT LYING IN BED, ON 3 LITERS VIA N/C WITH HUMIDIFIED AIR. SHE HAS RIGHT UPPER PICC LINE RUNNING D5 AT 100MLS/HR. BREATHING IS EVEN AND UNLABORED. NO SIGNS OF DISTRESS NOTED. PT IS STABLE.
--- NOTE | 2021-03-13 18:22 | NUR ---
HOME 02 WAS DELIVERED TO HOSPITAL. LEFT WITH PT IN ROOM FOR DC TONIGHT OR TOMORROW.
--- NOTE | 2021-03-13 19:20 | NUR ---
RECEIVED PT , AAOX4 , IV SITE INTACT AN PATENT , NID - O2 SAT WNL . INCONTINENT DIAPER . FOR DISCHARGE W/ HOME O2 BUT PER ALICIA PEDRAZA THE NNP WILL FOLLOW UP THE CASE . RELATIVES VIEWING OUTSIDE THE WINDOW . WILL CONT. TO MONITOR . NO COMPLAIN MADE AT THIS TIME . CALL LIGHT WITHIN REACH .
--- NOTE | 2021-03-13 19:20 | NUR ---
ENDORSED TO WATER METER MECHANIC NURSE FOR CONTINUITY OF CARE. POC DISCUSSED.
--- NOTE | 2021-03-14 | NUR ---
AWAKEABLE , O2 SAT WNL . NO COMPLAIN MADE , CALL LIGHT WITHIN REACH .
[2021-03-14] MEDS: MENTHOL/ZINC OXIDE 113 GM TUBE TP SCH ×2 (01:00→13:00)
[2021-03-14 04:00] VITALS: BP 100/60
--- NOTE | 2021-03-14 04:00 | NUR ---
AWAKEABLE , O2 SAT WNL . CALL LIGHT WITHIN REACH .
[2021-03-14] MEDS: DEXTROSE 5% 1,000 ML IV SCH ×2 (05:47→15:47)
--- NOTE | 2021-03-14 06:00 | NUR ---
NO COMPLAIN MADE , O2 SAT WNL . CALL LIGHT WITHIN REACH .
[2021-03-14] MEDS: BLOOD GLUCOSE MONITORING 1 DEV DEV FS SCH ×3 (06:27→16:37)
[2021-03-14] MEDS: ALBUTEROL SULFATE/IPRATROPIU 3 ML SOL IH SCH (07:23)
--- NOTE | 2021-03-14 07:30 | NUR ---
ENDORSED . STABLE CONDITION , AWAKE .
--- NOTE | 2021-03-14 07:35 | NUR ---
RECEIVED REPORT FROM ACCOUNTANT NURSE AT BEDSIDE. 4 L VIA NC WITH HUMIDIFIED AIR. SHE HAS RIGHT UPPER PICC LINE RUNNING D5 AT 100MLS/HR. BREATHING IS EVEN AND UNLABORED. NO SIGNS OF DISTRESS NOTED. PT IS STABLE.
[2021-03-14] MEDS: metFORMIN 850 MG TAB PO SCH (09:13)
[2021-03-14] MEDS: LOSARTAN 50 MG TAB PO SCH (09:13)
[2021-03-14] MEDS: amLODIPine 5 MG TAB PO SCH (09:13)
[2021-03-14] MEDS: ZINC SULF 220 MG CAP PO SCH (09:14)
[2021-03-14] MEDS: METOPROLOL 25 MG TAB PO SCH (09:14)
[2021-03-14] MEDS: lisinopriL 20 MG TAB PO SCH (09:14)
[2021-03-14] MEDS: predniSONE 20 MG TAB PO SCH (09:14)
[2021-03-14] MEDS: PANTOPRAZOLE 40 MG TABEC PO SCH (09:15)
[2021-03-14] MEDS: ASCORBIC ACID 500 MG TAB PO SCH (09:15)
[2021-03-14] MEDS: INSULIN LANTUS 100 UNITS/ML 10 ML VIAL SUBQ SCH (09:18)
--- NOTE | 2021-03-14 12:00 | NUR ---
4 L VIA NC WITH HUMIDIFIED AIR. SHE HAS RIGHT UPPER PICC LINE RUNNING D5 AT 100MLS/HR. BREATHING IS EVEN AND UNLABORED. NO SIGNS OF DISTRESS NOTED. PT IS STABLE.
[2021-03-14 12:36] VITALS: BP 127/62
--- NOTE | 2021-03-14 14:43 | NUR ---
PHYSICAL THERAPY CO-SIGN The Physical Therapy Progress Notes documented by [employer]yst Imp[employer]ator have been reviewed. Reviewed/Co-Signed by: Orin Mix Documentation Done by: NETTA BRUMFIELD PTA Addendum: 03/14/21 at 1443 by Orin Mix PT Amended: Links added.
--- NOTE | 2021-03-14 16:30 | NUR ---
PT PICKED UP BY TRANSPORT ORDERED BY FAMILY. ASSISTED WITH HOME O2 TO VEHICLE. PICC LINE WAS INTACT AND TAKEN OUT. PT IS STABLE. GRATEFUL FOR CARE.
[2021-03-14] MEDS: INSULIN LISPRO SLIDING SCALE 100 UNITS/ML VIAL SUBQ PRN (16:38)
--- NOTE | 2021-03-15 09:19 | NUR ---
PHYSICAL THERAPY CO-SIGN The Physical Therapy Progress Notes documented by Dungeon Master have been reviewed. Reviewed/Co-Signed by: Orin Mix Documentation Done by: NETTA BRUMFIELD PTA Addendum: 03/15/21 at 0919 by Orin Mix PT Amended: Links added.
== END 2021-03-14 17:10 | disposition home or self-care (01) | DRG 720 ==
LOC: MED 23:42 → MTU 02-14 05:57
PROVIDERS: ADMIT Family Medicine; ATTEND Family Medicine
PROC: 5A09557 Assistance with Respiratory Ventilation, Greater than 96 Consecutive Hours, Continuous Positive Airway Pressure (ICD-10-PCS; 2021-02-14)
PROC: XW033E5 Introduction of Remdesivir Anti-infective into Peripheral Vein, Percutaneous Approach, New Technology Group 5 (ICD-10-PCS; 2021-02-14)
PROC: 02HV33Z Insertion of Infusion Device into Superior Vena Cava, Percutaneous Approach (ICD-10-PCS; 2021-02-18)
PROC: B548ZZA Ultrasonography of Superior Vena Cava, Guidance (ICD-10-PCS; 2021-02-18)
PROC: 5A09357 Assistance with Respiratory Ventilation, Less than 24 Consecutive Hours, Continuous Positive Airway Pressure (ICD-10-PCS; 2021-02-20)
PROC: 5A09357 Assistance with Respiratory Ventilation, Less than 24 Consecutive Hours, Continuous Positive Airway Pressure (ICD-10-PCS; 2021-02-21)
PROC: 5A09357 Assistance with Respiratory Ventilation, Less than 24 Consecutive Hours, Continuous Positive Airway Pressure (ICD-10-PCS; 2021-02-22)
PROC: 5A09357 Assistance with Respiratory Ventilation, Less than 24 Consecutive Hours, Continuous Positive Airway Pressure (ICD-10-PCS; 2021-02-23)
PROC: 5A09357 Assistance with Respiratory Ventilation, Less than 24 Consecutive Hours, Continuous Positive Airway Pressure (ICD-10-PCS; 2021-02-24)
PROC: 5A09357 Assistance with Respiratory Ventilation, Less than 24 Consecutive Hours, Continuous Positive Airway Pressure (ICD-10-PCS; 2021-02-25)
PROC: 5A0935A Assistance with Respiratory Ventilation, Less than 24 Consecutive Hours, High Flow/Velocity Cannula (ICD-10-PCS; principal; 2021-03-04)
PROC: 5A0935A Assistance with Respiratory Ventilation, Less than 24 Consecutive Hours, High Flow/Velocity Cannula (ICD-10-PCS; 2021-03-05)
PROC: 5A0935A Assistance with Respiratory Ventilation, Less than 24 Consecutive Hours, High Flow/Velocity Cannula (ICD-10-PCS; 2021-03-06)
PROC: 5A0935A Assistance with Respiratory Ventilation, Less than 24 Consecutive Hours, High Flow/Velocity Cannula (ICD-10-PCS; 2021-03-07)
PROC: 5A0935A Assistance with Respiratory Ventilation, Less than 24 Consecutive Hours, High Flow/Velocity Cannula (ICD-10-PCS; 2021-03-08)
DX: A41.9 Sepsis, unspecified organism (principal); J96.01 Acute respiratory failure with hypoxia; N17.0 Acute kidney failure with tubular necrosis; J12.82 Pneumonia due to coronavirus disease 2019; E43 Unspecified severe protein-calorie malnutrition; U07.1 COVID-19; E87.0 Hyperosmolality and hypernatremia; D68.59 Other primary thrombophilia; J15.9 Unspecified bacterial pneumonia; N39.0 Urinary tract infection, site not specified; E78.5 Hyperlipidemia, unspecified; R74.01 Elevation of levels of liver transaminase levels; I12.9 Hypertensive chronic kidney disease with stage 1 through stage 4 chronic kidney disease, or unspecified chronic kidney disease; E11.22 Type 2 diabetes mellitus with diabetic chronic kidney disease; N18.31 Chronic kidney disease, stage 3a; E66.01 Morbid (severe) obesity due to excess calories; J39.8 Other specified diseases of upper respiratory tract; Z16.12 Extended spectrum beta lactamase (ESBL) resistance; B96.20 Unspecified Escherichia coli [E. coli] as the cause of diseases classified elsewhere; E86.0 Dehydration; E83.51 Hypocalcemia; Z68.24 Body mass index [BMI] 24.0-24.9, adult; Z82.49 Family history of ischemic heart disease and other diseases of the circulatory system; Z83.3 Family history of diabetes mellitus
CPT/HCPCS: 36415; 36600; 71045; 80048; 80053; 80076; 81001; 82150; 82728; 82803; 82948; 83036; 83605; 83615; 83625; 83690; 83735; 83880; 84100; 84436; 84439; 84443; 84479; 84484; 85025; 85379; 85610; 85651; 85730; 86140; 87040; 87081; 87086; 87804; 92610; 94640; 94660; 94664; 96365; 96367; 97110; 97112; 97116; 97163-GP; 97530; 99291; J0360; J0696; J1100; J1644; J1815; J2185; J2405; J2920; J3490; J7060; J7512; Q0092; U0003

== ENCOUNTER 2022-05-09 12:14 | Inpatient (IN) | payer MEDICAID, OTHER ==
[~2022-05-09] VITALS: Ht 160 cm; Wt 82.6 kg
[~2022-05-09 12:14] MED LIST: AMLO-3 PO; DOCU-299 PO; LANTUS SUBQ; LOSA100T2 PO; METF-350 PO; METO25TA PO; NOVN SUBQ; PRED20TA5 PO; VITC500 PO; ZINC220C29 PO
[2022-05-09 12:30] VITALS: BP 148/77
[2022-05-09 12:54] LABS: BASOPHILS # (AUTO) 0.1 K/uL (0.00-0.22); BASOPHILS % (AUTO) 0.6 % (0.0-2.0); EOSINOPHILS # (AUTO) 0.2 K/uL (0-0.4); EOSINOPHILS % (AUTO) 1.7 % (0.0-4.0); HEMATOCRIT 37.8 % (36-48); HEMOGLOBIN 12.4 g/dL (12.0-16.0); LYMPHOCYTES # (AUTO) 3.9 K/uL (2.5-16.5); LYMPHOCYTES % (AUTO) 38.7 % (20.5-51.1); MEAN CORPUSCULAR HEMOGLOBIN 28 pg (27-31); MEAN CORPUSCULAR HGB CONC 33 g/dL (33-37); MEAN CORPUSCULAR VOLUME 84.2 fL (80-94); MONOCYTES # (AUTO) 0.8 K/uL (0.8-1.0); MONOCYTES % (AUTO) 7.5 % (1.7-9.3); NEUTROPHILS # (AUTO) 5.2 K/uL (1.8-7.7); NEUTROPHILS % (AUTO) 51.5 % (42.2-75.2); PLATELET COUNT (AUTO) 262 K/uL (140-450); RED BLOOD CELL COUNT(AUTO) 4.49 MIL/uL (4.20-5.40); RED CELL DISTRIBUTION WIDTH 15.7 % (11.6-13.7); WHITE BLOOD COUNT (AUTO) 10.1 K/uL (4.8-10.8)
[2022-05-09 13:10] LABS: ALBUMIN 3.7 g/dL (3.4-5.0); ANION GAP 14.4 (8-16); ASPARTATE AMINOTRANSFERASE 15 U/L (15-37); CARBON DIOXIDE 25.5 mmol/L (21-32); CHLORIDE 105 mmol/L (98-107); CREATININE 0.8 mg/dL (0.6-1.3); GLUCOSE 152 mg/dL (74-106); POTASSIUM 3.9 mmol/L (3.5-5.1); SODIUM SERUM 141 mmol/L (136-145); TOTAL BILIRUBIN 0.7 mg/dL (0.0-1.0); UREA NITROGEN, BLOOD 18 mg/dL (7-18)
[2022-05-09] MEDS ORDERED: ASPIRIN 325 MG TAB PO ONE (13:45)
--- NOTE | 2022-05-09 14:15 | NUR ---
AWAKE ALERT X 4, CONVERSANT WITH FAMILY. CLEAR SPEECH, ABLE TO STAY UPRIGHT, GOOD COUGH, CLEAR SPEECH POST DRINKING WATER
[2022-05-09] MEDS ORDERED: ONDANSETRON 4 MG/2 ML VIAL IVP PRN (15:40)
[2022-05-09] MEDS ORDERED: LORazepam 1 MG TAB PO PRN (15:40)
[2022-05-09] MEDS ORDERED: ACETAMINOPHEN 325 MG TAB PO PRN (15:40)
[2022-05-09] MEDS ORDERED: ZOLPIDEM 5 MG TAB PO PRN (15:40)
[2022-05-09] MEDS ORDERED: HYDROcodone/APAP 5/325 MG 1 TAB TAB PO PRN (15:40)
[2022-05-09 16:43] LABS: MAGNESIUM 1.7 mg/dL (1.8-2.4)
--- NOTE | 2022-05-09 17:46 | NUR ---
AMBULATES PER WALKER TO BATHROOM TO VOID URINE. ATE JELLO, CRACKER AND JUICE TOLERATED WELL.
--- NOTE | 2022-05-09 18:12 | NUR ---
PT ARRIVED VIA GURNEY FROM ED. RECEIVED REPORT FROM ED NURSE GURPREET FOR CONTINUITY OF CARE. PT IN STABLE CONDITION, A/OX4 AND DIVEHI SPEAKING. PT ENDORSED RIGHT-SIDED FACIAL DROOPING AND NUMBNESS OF 05/08/22 AT 22:00. NO PAIN OR DISTRESS NOTED AT THIS TIME. TELE MONITOR CONNECTED. DAUGHTER AT THE BEDSIDE, DR. CARD IN TO SEE PT. MRI OF THE BRAIN ORDERED.
--- NOTE | 2022-05-09 18:21 | NUR ---
Patient will be admitted to care of DR CARD. Admited to TELE. Will go to room 119A. Belongings list completed. Report to Jaida PEDRAZA.
[2022-05-09 18:31] LABS: APPEARANCE,URINE CLEAR (CLEAR); BILIRUBIN,URINE NEGATIVE (NEGATIVE); BLOOD, URINE TRACE-I (NEGATIVE); COLOR,URINE YELLOW (YELLOW); LEUKOCYTE ESTERASE ,URINE NEGATIVE (NEGATIVE); NITRITE, URINE NEGATIVE (NEGATIVE); UGLUCOSE NEGATIVE (NEGATIVE)
[2022-05-09 18:43] LABS: WBC,URINE 0-5 /HPF (0-5)
--- NOTE | 2022-05-09 19:40 | NUR ---
RECEIVED PT AAOX4 , NID O2 SAT WNL , ON RA , DENIES ANY PAIN AT THIS TIME , W/ LEFT SIDED FACIAL DROOPING , CLEAR SPEECH , LIBYAN SPEAKING , DAUGTHER AT BEDSIDE . ON SL - INTACT AND PATENT . FALL RISK - PUT PT OF FALL PREVENTION PROTOCOL , ENSURE SAFETY , WILL PROVIDE BEDSIDE COMMODE , CALL LIGHT WITHIN REACH . ON TELE MONITOR - SR , WILL CONT. TO MONITOR . Addendum: 05/10/22 at 430 by Sera Westbrook RN AT 1939 - ADMISSION ASSESSMENT - DONE THRU VIDEO CS ASSOCIATE . Addendum: 05/10/22 at 043 by Sera Westbrook RN AT 1939 REMINDS PT THRU LANGUAGE VIDEO CS ASSOCIATE , THAT SHE NEEDS TO USE THE CALL LIGHT WHENEVER SHE GOT PEE , AND DONT STAND UP AND WALK BY HERSELF , PT 'S WALKER AT BEDSIDE - FALL RISK , PT VERBALIZES UNDERSTANDING .
[2022-05-09 20:00] VITALS: BP 143/88
--- NOTE | 2022-05-09 21:58 | NUR ---
REFER TO DR. SILVA LOW SERUM MAG , SENT HIM COPY OF HOME MEDS , INFORM DR. SILVA PT IS DIABETIC . Addendum: 05/10/22 at 0024 by Sera Westbrook RN DR. SILVA AWARE ABOUT LOW SERUM MG OF PT - NO FURTHER ORDERS FROM HIM .
[2022-05-09] MEDS ORDERED: INSULIN LISPRO SLIDING SCALE 100 UNITS/ML VIAL SUBQ PRN ×2 (22:25→23:35)
[2022-05-09] MEDS ORDERED: DEXTROSE 50% 50 ML SYR IVP PRN ×2 (22:25→23:35)
--- NOTE | 2022-05-09 22:40 | NUR ---
BS CHECK 96
[2022-05-10] VITALS (7 sets, daily range): BP systolic 126–159; BP diastolic 67–90
--- NOTE | 2022-05-10 | NUR ---
SLEEPING , AWAKEABLE , NO S/SX OFACUTE DISTRESS NOTED .CALL [facility] WITHIN REACH .
--- NOTE | 2022-05-10 04:00 | NUR ---
SLEEPING , AWAKEABLE , NO S/SX OF ACUTE DISTRESS NOTED , CALL LIGHT WITHIN REACH , WILL CONT. TO MONITOR
--- NOTE | 2022-05-10 06:00 | NUR ---
RESTING ON BED AAOX4 , NO COMPLAIN MADE
[2022-05-10] MEDS: BLOOD GLUCOSE MONITORING 1 DEV DEV FS SCH ×4 (06:32→20:45)
--- NOTE | 2022-05-10 07:11 | NUR ---
ASSUMED CONTINUITY OF CARE. INITIAL ASSESSMENT DONE. A & O X4. SPEECH CLEAR. FACIAL DROOPING NOTED. NO C/O PAIN. NO SOB, NOTED. RESTING ON BED COMFORTABLY. ASKED TO CALL NURSE IF NEEDS HELP. VERBALIZED UNDERSTANDING. FALL PRECAUTION APPLIED. CALL LIGHT WITHIN REACH.
--- NOTE | 2022-05-10 07:17 | NUR ---
ENDORSED PT FOR CONT. OF CARE , ENDORSED FOLLOW UP RESUSCITATION CODE ORDER FROM DANNY ROYAL , RN VERBALIZES UNDERSTANDING . CALL LIGHT WITHIN REACH .
[2022-05-10] MEDS ORDERED: BLOOD GLUCOSE MONITORING 1 DEV DEV FS SCH (07:30)
[2022-05-10] MEDS ORDERED: ATORVASTATIN 20 MG TAB PO SCH (09:00)
[2022-05-10] MEDS ORDERED: DOCUSATE SODIUM 100 MG GELCAP PO SCH (09:00)
[2022-05-10] MEDS ORDERED: ASPIRIN 81 MG TAB.CHEW PO SCH (09:00)
[2022-05-10] MEDS ORDERED: MAG SULF 2000 MG/WATER PREMIX 50 ML IV SCH (09:00)
--- NOTE | 2022-05-10 09:06 | NUR ---
PATIENT HAS BEEN SCREENED AND CATEGORIZED MODERATE NUTRITION RISK. PATIENT WILL BE SEEN WITHIN 3-5 DAYS OF ADMISSION. REVIEWED BY JAYLENE RODRIGUEZ RD
--- NOTE | 2022-05-10 10:15 | NUR ---
SLEEPING WELL AT THIS TIME. NO DISCOMFORT NOTED. PT. DAUGHTER -FREDDY ON BEDSIDE.
--- NOTE | 2022-05-10 11:20 | NUR ---
TRAVELING STOREKEEPER CAME FOR PT. ECHO AT BEDSIDE. PT. DAUGHTER -FREDDY AT BEDSIDE.
--- NOTE | 2022-05-10 11:30 | NUR ---
DC PLANNING: PATIENT HAS AN ORDER FOR MRI OF THE BRAIN WITH OUT CONTRAST. CALLED [facility] STATED NO FENDER MECHANIC APPRENTICE TODAY. FAXED TO [facility] AND SARAH CM TO FOLLOW Addendum: 05/10/22 at 1505 by Gladys Hurley RN DC PLANNING: DR CARD RECEIVED A CALL FROM NEUROLOGIST AT [facility] DISCUSSED THE [facility] TRANSFER FOR MRI AND THEY AGREED TO TREAT THE SYMPTOM IN [facility] SUCH ORDERED CT HEAL CT ANGIO NECK AND MRI CAN BE DONE OUT PATIENT. CANCELLED THE TRANSFER FOR NOW CM TO FOLLOW
--- NOTE | 2022-05-10 15:35 | NUR ---
DR. CARD SPOKE TO PT. AND PT. DAUGHTER -FREDDY AT BEDSIDE.
--- NOTE | 2022-05-10 15:47 | NUR ---
DR. CARD JUST CAME OUT FROM PT. ROOM AND INFORMED HIM OF PT. CODE STATUS.
[2022-05-10 15:58] LABS: BASOPHILS % (AUTO) 0.5 % (0.0-2.0); EOSINOPHILS # (AUTO) 0.2 K/uL (0-0.4); EOSINOPHILS % (AUTO) 2.6 % (0.0-4.0); HEMATOCRIT 37.3 % (36-48); HEMOGLOBIN 12.1 g/dL (12.0-16.0); LYMPHOCYTES # (AUTO) 2.8 K/uL (2.5-16.5); LYMPHOCYTES % (AUTO) 43.6 % (20.5-51.1); MEAN CORPUSCULAR HEMOGLOBIN 27 pg (27-31); MEAN CORPUSCULAR HGB CONC 32 g/dL (33-37); MONOCYTES # (AUTO) 0.7 K/uL (0.8-1.0); MONOCYTES % (AUTO) 10.9 % (1.7-9.3); NEUTROPHILS # (AUTO) 2.7 K/uL (1.8-7.7); NEUTROPHILS % (AUTO) 42.4 % (42.2-75.2); PLATELET COUNT (AUTO) 227 K/uL (140-450); RED BLOOD CELL COUNT(AUTO) 4.45 MIL/uL (4.20-5.40); RED CELL DISTRIBUTION WIDTH 15.6 % (11.6-13.7); WHITE BLOOD COUNT (AUTO) 6.4 K/uL (4.8-10.8)
[2022-05-10 16:20] LABS: CHOL/HDL RATIO 2.5 (1-4.5)
--- NOTE | 2022-05-10 18:58 | NUR ---
P.T NOTES P.T. EVAL COMPLETED; REFER TO EVAL FOR DETAILS.
--- NOTE | 2022-05-10 19:05 | NUR ---
BEDSIDE REPORT TO BREANN KRAFT. IN STABLE CONDITION. PT. DAUGHTER -FREDDY ON BEDSIDE.
--- NOTE | 2022-05-10 20:00 | NUR ---
AWAKE,ALERT AND ORIENTED.RESP.UNLABORED.TELE IS SHOWING SR.SL PATENT.CALL LIGHT IN REACH. NO C/O PAIN AT THIS TIME.FAMILY AT BEDSIDE.WILL CONTINUE MONITORING.
[2022-05-10] MEDS ORDERED: ASPI-1856 PO (22:14)
--- NOTE | 2022-05-10 23:42 | NUR ---
DR MULLEN DISCHARGED PT.D/C PROCESS DONE.INFORMATIONS GIVEN TO PT AND HER DAUGHTER.THEY VERBASLIZED UNDERSTANDING.PT DISCHARGED W/HER DAUGHTER IN STABLE CONDITION.
--- NOTE | 2022-05-13 15:53 | NUR ---
CALLED DR BURCH OFFICE LOCATED AT [address] [place], [place] [id number]. SPOKE WITH NA WHO INFORMED PT PT HAD A FOLLOW UP APPOINTMENT FOR 05/13/2022 AT 0840.
== END 2022-05-10 23:35 | disposition home or self-care (01) | DRG 45 ==
LOC: MED 12:14 → MTU 15:49
PROVIDERS: ADMIT Hospitalist; ATTEND Hospitalist
DX: I63.9 Cerebral infarction, unspecified (principal); E11.9 Type 2 diabetes mellitus without complications; R29.810 Facial weakness; E78.5 Hyperlipidemia, unspecified; I10 Essential (primary) hypertension; Z20.822 Contact with and (suspected) exposure to COVID-19; E83.42 Hypomagnesemia; Z79.899 Other long term (current) drug therapy
CPT/HCPCS: 36415; 70450; 71045; 80053; 81001; 82948; 83036; 83735; 84484; 85025; 85651; 86886; 86900; 86901; 87081; 87086; 87635-QW; 92526; 93005; 96365; 96375; 97163-GP; 99285; J1644; J3475; Q0092; Q9967